=== PATIENT | female | born 1990 | race Two or more races ===

== ENCOUNTER 2024-07-23 21:55 | Emergency (ER) | payer MEDICAID, SELFPAY ==
[2024-07-23 21:56] VITALS: BMI 40.2
[2024-07-23 22:33] VITALS: BP 123/80; PULSE 120; RESP 17; TEMP 36.9; O2SAT 97
--- NOTE | 2024-07-23 22:54 | XR_ITS ---
Examination: CT abdomen with intravenous contrast CT pelvis with intravenous contrast 2-D coronal reconstructions 2-D sagittal reconstructions Date and time of exam:July 23, 2024 1144 hrs. Comparison July 12, 2024 Indications: Abdominal pain this week, cholecystectomy July 19, 2024. CTDI: vol (mGy) 12.91 DLP: (mGycm) 797 Technique: Multiple axial sections of the abdomen and pelvis have been obtained. 64 slice high-resolution scanner used. 3 mm axial sections have been obtained, post intravenous injection 60 cc [id number] 2-D sagittal, coronal reconstructions obtained. Low dose protocols were performed. One or more of the following dose reduction techniques were used; automated exposure control, adjustment of the mA and/or KV according to patient size, use of iterative reconstruction technique. Findings: Pneumoperitoneum No focal liver or splenic lesions Minimal postsurgical change in the gallbladder fossa No gallbladder fossa abscess No pancreatic or adrenal mass No renal or ureteral calculi, no hydronephrosis Postoperative changes in the anterior abdominal wall, mild 9 mm fat-containing umbilical hernia Normal appendix No bowel obstruction Anteverted uterus Urinary bladder intact The osseous structures are intact Impression: Pneumoperitoneum, presumably postoperative No gallbladder fossa abscess Negative for extrahepatic biliary tract dilatation although hepatobiliary sonography follow-up Normal appendix No bowel obstruction
--- NOTE | 2024-07-23 22:54 | EKG_ITS ---
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1990 Requested By: Aaron Das Order Number: [id number] Reading MD: Aaron Das Measurements Intervals [place] Rate: 122 P: 14 DC: 153 QRS: 268 QRSD: 77 T: 48 QT: 323 QTc: 462 Interpretive Statements SINUS TACHYCARDIA POSSIBLE RIGHT VENTRICULAR HYPERTROPHY [SOME/ALL OF: PROMINENT R IN V1, LATE TRANSITION, RAD, JESSE, SSS] POSSIBLE ANTERIOR MYOCARDIAL INFARCTION , OF INDETERMINATE AGE [30 ms Q WAVE IN V3/V4, OR R < 0.2 mV IN V4] Compared to ECG 07/18/2024 09:33:56 Myocardial infarct finding now present Sinus rhythm no longer present Indeterminate axis no longer present /store/S0/[id number]/ecg/[id number].pdf
--- NOTE | 2024-07-23 22:55 | PD.EDRME ---
Rapid Medical Screening Exam RME Arrival date/time: 07/23/24 21:55 33 year old female present to ED for c/of abd/chest pain s/p gall bladder surgery. I have greeted and performed a focused initial assessment of this patient. A comprehensive ED assessment and evaluation of the patient, analysis of all test results, and completion of the medical decision making process will be conducted by additional ED providers. Chief Complaint: Abdominal Pain Time Seen by Provider: 07/23/24 22:00 Vital signs: Vital Signs Temperature 98.5 F 07/23/24 22:33 Pulse Rate 120 H 07/23/24 22:33 Respiratory Rate 17 07/23/24 22:33 Blood Pressure 123/80 07/23/24 22:33 Pulse Oximetry (%) 97 07/23/24 22:33 Oxygen Delivery Method Room Air 07/23/24 22:33
[2024-07-23] MEDS: ONDANSETRON ODT 4 MG TABRAP PO (23:06)
[2024-07-23] MEDS: HYDROcodone/APAP 5/325 TABLET 1 TAB PO (23:06)
[2024-07-23 23:20] VITALS: BP 117/81; PULSE 100; RESP 19; TEMP 37.1; O2SAT 100
[2024-07-23] MEDS: SODIUM CHLORIDE 0.9% 1000 ML 1,000 ML 999 ML IV (23:25)
[2024-07-23 23:44] LABS: Base Excess, Venous 2 (-3-3); O2 Saturation, Venous 79 % (96-97); PCO2, Venous 40 mmHg (36-56); PO2, Venous 50 mmHg (15-58); pH, Venous 7.43 (7.33-7.66)
[2024-07-23 23:45] LABS: Basophils # (Auto) 0.1 Thou/mm3 (0.0-0.2); Basophils % (Auto) 1 % (0-2.5); Eosinophils # (Auto) 0.2 Thou/mm3 (0.0-0.5); Eosinophils % (Auto) 1 % (0-10); Hematocrit 31.8 % (36.0-46.0); Hemoglobin 11.7 g/dL (12.0-16.0); Immature Granulocytes % (Auto) 0 % (0-0); Immature Granulocytes Auto 0.03 Thou/mm3 (0.00-0.00); Lymphocytes # (Auto) 2.9 Thou/mm3 (1.0-4.8); Lymphocytes % (Auto) 24 % (10-50); Mean Corpuscular HGB Conc 36.8 g/dl (31.0-37.0); Mean Corpuscular Hemoglobin 31.9 pg (25.0-35.0); Mean Corpuscular Volume 87 fL (80-100); Monocytes # (Auto) 0.9 Thou/mm3 (0.0-0.8); Monocytes % (Auto) 7 % (0-12); Neutrophils % (Auto) 67 % (37-80); Nucleated Red Blood Cell % 0 /100 WBC (0); Platelet Count 298 Thou/mm3 (140-440); RDW Standard Deviation 38.2 fL (36.4-46.3); Red Blood Count 3.67 Miln/mm3 (4.00-5.20); White Blood Count 12.1 Thou/mm3 (3.6-11.0)
[2024-07-23 23:53] LABS: Beta Hydroxybutyrate 1.8 mmol/L (<0.6)
[2024-07-24 00:05] LABS: HCG,Qualitative Serum Negative
[2024-07-24 00:09] LABS: Alanine Aminotransferase 14 U/L (10-49); Albumin, Serum 4.3 gm/dL (3.5-5.0); Albumin/Globulin Ratio 1.4 (1.2-2.2); Alkaline Phosphatase 76 U/L (46-116); Anion Gap 9 (7-16); Aspartate Amino Transferase 14 U/L (0-34); BUN/Creatinine Ratio 11 Ratio (12-20); Bilirubin,Total 1.1 mg/dL (0.3-1.2); Blood Urea Nitrogen 16 mg/dL (9-23); Calcium 9.8 mg/dL (8.3-10.6); Calcium (Corrected) 9.8 mg/dL (8.5-10.1); Carbon Dioxide 26.2 mMol/L (20.0-31.0); Chloride 92 mMol/L (98-107); Creatinine (Component) 1.4 mg/dL (0.6-1.3); Estimated Creatinine Clearance 64.3 mL/min (>60); Glucose 145 mg/dL (74-106); Lipase 43 U/L (12-53); Osmolality,Calculated 259 (275-295); Potassium 3.3 mMol/L (3.4-5.1); Sodium 127 mMol/L (136-145); Total Protein 7.3 gm/dL (5.7-8.2); Troponin I < 0.002 ng/mL (0.0-0.045); eGFR 52 See Note
[2024-07-24] MEDS: HYDROcodone/APAP 5/325 TABLET 1 TAB PO (00:21)
--- NOTE | 2024-07-24 00:21 | PD.EDABDPN ---
ED Abdominal Pain RME/HPI General Chief Complaint: Abdominal Pain Stated complaint: ABD PAIN, CHOLECYSTECTOMY 07/19 Time seen by provider: 07/23/24 22:00 Arrival date/time: 07/23/24 21:55 Source: patient Mode of arrival: ambulatory Limitations: no limitations RME / HPI RME / HPI narrative: 07/23/24 21:55 33 year old female present to ED for c/of abd/chest pain s/p gall bladder surgery. I have greeted and performed a focused initial assessment of this patient. A comprehensive ED assessment and evaluation of the patient, analysis of all test results, and completion of the medical decision making process will be conducted by additional ED providers. Dr. Quispe?s Main ED Evaluation: 33-year-old female who had a laparoscopic cystectomy done approximately five days ago with persistent abdominal pain since discharge. She had some pain medications while she was in the hospital, but once she left the hospital, she has been taking Advil for the pain without improvement therefore, she comes to the emergency apartment. Pain is not worsened, but she comes because the pain is not better. Her next appointment with Dr. Woo is not until next Wednesday. Related Data Home Medications ?Medication ?Instructions ?Recorded ?Confirmed amlodipine 10 mg tablet 10 mg PO QDAY 07/13/24 07/13/24 atorvastatin 80 mg tablet 80 mg PO QDAY 07/13/24 07/13/24 cetirizine 10 mg tablet 10 mg PO QDAY 07/13/24 07/13/24 lisinopril 20 1 tab PO QDAY 07/13/24 07/13/24 mg-hydrochlorothiazide 25 mg tablet triamcinolone acetonide 0.1 % 1 applic topical BID 07/13/24 07/13/24 topical cream Previous Rx's ?Medication ?Instructions ?Recorded blood-glucose meter #1 ea 02/03/23 lancet with blood glucose test #300 ea 02/03/23 strips and pen needles combo pack metformin 1,000 mg tablet,extended 1,000 mg PO BID #60 tabs 02/03/23 release 24hr (osmotic) pen needle, diabetic 31 gauge x #100 ea 02/03/2301/26 (Comfort EZ Pen Borger) capsaicin 0.025 % topical cream 1 applic top TID 30 days #50 grams 07/20/24 dicyclomine 10 mg capsule 10 mg PO TID 30 days #90 caps 07/20/24 insulin glargine 100 unit/mL 15 unit (0.15 mL) SCi QDAY 30 days 07/20/24 subcutaneous solution (Lantus #4.5 mL U-100 Insulin) insulin syringe-needle U-100 0.5 #100 ea 07/20/24 mL 30 gauge x 1/2 (BD Insulin Syringe Ultra-Fine) pantoprazole 40 mg tablet,delayed 40 mg PO BID 30 days #60 tabs 07/20/24 release hydrocodone 5 mg-acetaminophen 325 1 tab PO Q8H PRN pain #7 tabs 07/24/24 mg tablet Allergies Allergy/AdvReac Type Severity Reaction Status Date / Time No Known Allergies Allergy Verified 07/23/24 21:58 Review of Systems Review of Systems Systems Reviewed: All systems reviewed, normal except as documented Past Medical History Past Medical History NEUROLOGIC: Negative Neurological Disorders, Cerebrovascular Accident, Transient Ischemic Attacks (TIA), Dementia, Alzheimer's Disease, Parkinson's Disease, Brain Tumor, Meningitis, Seizures, Epilepsy, Multiple Sclerosis, Cerebral Palsy, Amyotrophic Lateral Sclerosis (ALS/Kylie Gehrig's), Guillain-[place] Syndrome, Spina Bifida, Paralysis, Peripheral Neuropathy, Roper's Palsy, Subdural Hematoma, Migraine, Head Trauma, Spinal Cord Injury or Traumatic Brain Injury CARDIAC: Positive Hypertension; Negative Cardiac Disorders, Myocardial Infarction, Cardiac Arrhythmia, Atrial Fibrillation, Angina, Heart Murmur, Coronary Artery Disease, Atherosclerotic Heart Disease, Peripheral Vascular Disease, Hypercholesterolemia, Aneurysm, Congestive Heart Failure, Congenital Heart Disease, Valvular Heart Disease, Rheumatic Fever, Cardiomyopathy, Edema, Pericarditis, Cellulitis, Deep Vein Thrombosis, Hypotension or Varicose Veins RESPIRATORY: Negative Chronic Obstructive Pulmonary Disease (COPD), Asthma, Bronchitis, Emphysema, Pneumonia, Pulmonary Fibrosis, Cystic Fibrosis, Tuberculosis, Pulmonary Embolism, Pulmonary Edema or Sleep Apnea GASTROINTESTINAL: Negative Gastrointestinal Disorders, Hepatitis, Cirrhosis, Pancreatitis, Celiac Disease, Gall Bladder Disease, Gastrointestinal Bleed, Esophageal Varices, Saenz's Esophagus, Colitis, Ulcerative Colitis, Diverticulitis, Diverticulosis, Ulcer, Colorectal Cancer, Irritable Bowel, Crohn's Disease, Obstructive Bowel, Hiatal Hernia, Hemorrhoids, Gastroesophageal Reflux Disease or Obesity GENITOURINARY: Negative Genitourinary Disorders, Renal Disease, Kidney Stones, Polycystic Kidney Disease, Neurogenic Bladder, Inguinal Hernia, Dialysis, Prostate Cancer or Benign Prostatic Hyperplasia REPRODUCTIVE: Negative Breast Cancer, Endometriosis, Genital Herpes, Gonorrhea, Pelvic Inflammatory Disease, Previous Pregnancies, Syphilis, Testicular Cancer or Uterine Prolapse MUSCULOSKELETAL: Negative Musculoskeletal Disorders, Muscular Dystrophy, Myasthenia Gravis, Marfan's Syndrome, Bone Cancer, Arthritis, Rheumatoid Arthritis, Osteoporosis, Degenerative Disk Disease, Gout, Scoliosis, Carpal Tunnel Syndrome, Fibromyalgia, Fractures, Degenerative Joint Disease, Osteomyelitis or Poliovirus ENT: Negative Cataracts, Glaucoma, Blind, Retinal Detachment, Macular Degeneration, Ear Infection, Deafness, Head Trauma or Eye Prosthesis ENDOCRINE: Positive Endocrine Disorders and Diabetes Mellitus Type 2; Negative Diabetes Mellitus Type 1, Rod's Syndrome, Kearny's Disease, Hyperthyroidism, Hypothyroidism, Parathyroid Disease, Pituitary Disease, Systemic Lupus Erythematosus, Syndrome of Inappropriate Antidiuretic Hormone (SIADH), Adrenal Disease or Graves' Disease HEMATOLOGIC: Negative Blood Disorders, Anemia, Leukemia, Hemophilia, Thalassemia, Sickle Cell Disease or Clotting Problems PSYCHO/SOCIAL: Positive Recreational Drug Use (MARIJUANA) and Anxiety; Negative Psychiatric Problems, Schizophrenia, Bipolar Disorder, Depression, Behavior Problems, Self-Mutilation, Attention Deficit Disorder, Attention Deficit Hyperactivity Disorder, Depression, Post Traumatic Stress Disorder or Eating Disorder OTHER HISTORY: Positive Hospitalization; Negative Autoimmune Disease, Down Syndrome, Autism, Developmental Delay, Shingles, Falls, Blood Transfusions, Blood Transfusion Reaction, Anesthesia Reactions, Organ Transplant, Chemotherapy, Radiation Therapy, Hyperbaric Therapy, MRSA, VRSA, Vancomycin-Resistant Enterococci, Human Immunodeficiency Virus (HIV), Chicken Pox, Measles, Mumps, Rubella ([place] Measles), Pertussis, Clostridium Difficile, Cancer, Breast Cancer, Cervical Cancer, Colorectal Cancer, Lung Cancer, Ovarian Cancer, Prostate Cancer or Testicular Cancer Family History FAMILY HISTORY: Negative Family Psychiatric Problems, Family Respiratory Disorders, Family Cardiac Disorders, Family Gastrointestinal Problems, Family Cancer, Family Surgery or Family Anesthesia Reaction Surgical History SURGICAL: Negative Cardiac Surgery, Open Heart Surgery, Coronary Artery Bypass Graft, Valve Replacement, Vascular Surgery, Coronary Stent, Cardiac Catheterization, Pacemaker, Angiogram, Auto Implanted Cardiovert Defib, Carotid Endarterectomy, Endocrine Surgery, Thyroidectomy, Ear Surgery, Tympanostomy Tube, Eye Surgery, Nose Surgery, Oral Surgery, Tonsillectomy, Adenoidectomy, Cochlear Implant, Corneal Transplant, Throat Surgery, Abdominal Surgery, Tracheostomy, Gastric Bypass Surgery, Gastrostomy, Bowel Surgery, Nephrectomy, Transurethral Resection, Joint Replacement, Amputation, Open Reduction Internal Fixation, Arthroscopy, Neurologic Surgery, Brain Shunt, Mastectomy, Lumpectomy, Hysterectomy, Tubal Ligation, Section, Vasectomy or Organ Transplant Social History SMOKING STATUS: Never smoker SECOND HAND EXPOSURE: No SUBSTANCE USE: does not use ED Exam Narrative Physical exam: GENERAL APPEARANCE: AxOx4, generally well-appearing, no acute distress. HEENT: NC, AT. MMM. EOMI, clear conjunctiva, oropharynx clear. NECK: Supple without lymphadenopathy. No stiffness or restricted ROM. HEART: Normal rate and regular rhythm, normal S1/S1, no m/r/g LUNGS: CTAB, moving air well. No crackles or wheezes are heard. ABDOMEN: Soft, diffusely tender, no rebound, nondistended with good bowel sounds heard. BACK: No midline C/T/L spine pain or deformity, No CVAT, no obvious deformity. EXTREMITIES: Without cyanosis, clubbing or edema. MUSCULOSKELETAL: FROM of all major joints, no chest tenderness NEUROLOGICAL: Grossly nonfocal. Alert and oriented, moving all 4 extremities. CN not formally tested but appear grossly intact. Observed to ambulate with normal gait. Skin: Warm and dry without any rash. General Limitations: Present no limitations Course Course Course Narrative: [address] resent via the RME process. Patient notes improvement with [place] given here and we will discharge her with a few tablets so she can follow up with Dr. Woo. Quality Measures none Orders Category Date Time Status Bedside Blood Glucose NOW Care 07/23/24 23:[address] Screening NOW Care 07/23/24 22:54 Active EKG (ED ONLY) *Do not use* NOW Care 07/23/24 22:[address] abdomen pelvis w con Stat Exams 07/23/24 22:54 Completed EKG (ED Only) Stat Exams 07/23/24 22:54 Draft Beta Hydroxybutyrate Stat Lab 07/23/24 23:33 Completed CBC Stat Lab 07/23/24 23:33 Completed CMP [Comprehensive Metabolic Panel] Stat Lab 07/23/24 23:33 Completed HCG,Qualitative Serum Stat Lab 07/23/24 23:33 Completed Lipase Stat Lab 07/23/24 23:33 Completed Troponin I Stat Lab 07/23/24 23:33 Completed UA [Urinalysis] Stat Lab 07/23/24 22:55 Ordered Urine Culture Stat Lab 07/23/24 22:55 Ordered VBG [Venous Blood Gas] Stat Lab 07/23/24 23:33 Completed HYDROcodone*/APAP 5/325 [[place] 5/325] Med 07/23/24 22:55 Discontinued 1 tab PO X1 ONE HYDROcodone*/APAP 5/325 [[place] 5/325] Med 07/24/24 00:12 Discontinued 1 tab PO X1 ONE Ondansetron Odt [Zofran Odt] Med 07/23/24 22:55 Discontinued 4 mg PO X1 ONE Sodium Chloride 0.9% 1000 ml [Ns] 1,000 ml Med 07/23/24 22:56 Discontinued IV 999 mls/hr Vital Signs Vital signs: Vital Signs Temperature 98.5 F 07/23/24 22:33 Pulse Rate 120 H 07/23/24 22:33 Respiratory Rate 17 07/23/24 22:33 Blood Pressure 123/80 07/23/24 22:33 Pulse Oximetry (%) 97 07/23/24 22:33 Oxygen Delivery Method Room Air 07/23/24 22:33 Abdominal Pain MDM MDM Narrative MDM Narrative:: Scribe Attestation: I, Derrick Rodriguez, am scribing for and in the presence of Dr. Quispe. Provider Notation: Although this document has been carefully reviewed, there may still be some phonetic and other typographical errors. These errors are purely grammatical due to imperfections in the software program and should not be construed in any way to compromise the substance of the patient's medical care during this visit. Patient data External records reviewed:: [facility] previous records Clinical information provided by:: patient Social determinants that could affect healthcare access:: none Patient has the following chronic illnesses:: HTN, DM2 How is presenting disease/condition affected by chronic disease/condition?: uneffected by Evaluation data The following diagnostics were reviewed and interpreted by me:: radiology exam(s) Lab and/or radiology exams considered but not ordered:: None Interpretation Summary: I personally reviewed the radiology data and agree with the radiologist's interpretation. Examination: CT abdomen with intravenous contrast CT pelvis with intravenous contrast 2-D coronal reconstructions 2-D sagittal reconstructions Date and time of exam:July 23, 2024 1144 hrs. Comparison July 12, 2024 Indications: Abdominal pain this week, cholecystectomy July 19, 2024. Findings: Pneumoperitoneum No focal liver or splenic lesions Minimal postsurgical change in the gallbladder fossa No gallbladder fossa abscess No pancreatic or adrenal mass No renal or ureteral calculi, no hydronephrosis Postoperative changes in the anterior abdominal wall, mild 9 mm fat-containing umbilical hernia Normal appendix No bowel obstruction Anteverted uterus Urinary bladder intact The osseous structures are intact Impression: Pneumoperitoneum, presumably postoperative No gallbladder fossa abscess Negative for extrahepatic biliary tract dilatation although hepatobiliary sonography follow-up Normal appendix No bowel obstruction Dictated By: Koby Shaw MD Medications / Prescriptions Medications or Prescriptions considered but not ordered:: None Medication administrations:: Medication Administration History Discontinued Medications Hydrocodone Bitart/Acetaminophen (Hydrocodone/Apap 5/325 Tablet) 1 tab PO X1 ONE Stop: 07/23/24 22:56 Last Admin: 07/23/24 23:06 Dose: 1 tab Documented By: FRANCHESCA Hydrocodone Bitart/Acetaminophen (Hydrocodone/Apap 5/325 Tablet) 1 tab PO X1 ONE Stop: 07/24/24 00:13 Sodium Chloride (Ns) 1,000 mls @ 999 mls/hr IV .Q1H1M ONE Stop: 07/23/24 23:56 Last Infusion: 07/24/24 00:19 Dose: Infused Documented By: Admin: 07/23/24 23:25 Dose: 999 mls/hr Documented By: KOKI Ondansetron HCl (Ondansetron Odt 4 Mg Tabrap) 4 mg PO X1 ONE; Protocol Stop: 07/23/24 22:56 Last Admin: 07/23/24 23:06 Dose: 4 mg Documented By: FRANCHESCA As above Consultations Consultation(s) initiated? (list below): No Diagnosis Differential diagnosis abdominal pain: abdominal pain, constipation, diverticulitis, gastroenteritis and small bowel obstruction Most likely diagnosis given after review of the tests above:: Postoperative pain Admission Indicated Admission indicated?: not indicated Admission Request Was there a request for admission?: No Disposition Plan Disposition Plan: Discharge Discharge Attestation Discharge Attestation: The patient and all family members were given an opportunity to ask questions and understood the discharge instructions. Discharge instructions specifically effects, indications for sooner follow up or return to the emergency department, and the expected course of current diagnosis. Patient condition: Stable Discharge Plan Plan Patient Disposition: HOME (Self Care) Prescriptions/Referrals Prescriptions/Med Rec: New hydrocodone-acetaminophen 5-325 mg tablet 1 tab PO Q8H MDD 3 tabs/day PRN (Reason: pain) Qty: 7 0RF No Action metformin 1,000 mg tablet extended release 24 hr 1,000 mg PO BID Qty: 60 0RF (DME) blood-glucose meter Kit See Rx Instructions .Route Qty: 1 0RF Rx Instructions: As directed (DME) pen needle, diabetic [Comfort EZ Pen Borger] 31 gauge x 5/16 needle See Rx Instructions .Route Qty: 100 0RF Rx Instructions: As directed (DME) lancet-gluc test strip-needles Combo Pack See Rx Instructions .Route Qty: 300 0RF Rx Instructions: As directed atorvastatin 80 mg tablet 80 mg PO QDAY Patient Comments: TAKE 1 TABLET BY MOUTH EVERY DAY cetirizine 10 mg tablet 10 mg PO QDAY Patient Comments: TAKE 1 TABLET BY MOUTH EVERY DAY FOR 90 DAYS triamcinolone acetonide 0.1 % cream 1 applic TOPICAL BID Patient Comments: 1 APPLICATION EXTERNALLY TWICE A DAY 30 DAYS amlodipine 10 mg tablet 10 mg PO QDAY Patient Comments: TAKE 1 TABLET BY MOUTH EVERY DAY lisinopril-hydrochlorothiazide 20-25 mg tablet 1 tab PO QDAY Patient Comments: TAKE 1 TABLET BY MOUTH EVERY DAY FOR 90 DAYS insulin glargine [Lantus U-100 Insulin] 100 unit/mL Solution 15 unit SCi QDAY 30 Days Qty: 4.5 0RF pantoprazole 40 mg Tablet,Delayed Release (Dr/Ec) 40 mg PO BID 30 Days Qty: 60 0RF capsaicin 0.025 % Cream 1 applic top TID 30 Days Qty: 50 0RF dicyclomine 10 mg Capsule 10 mg PO TID 30 Days Qty: 90 0RF (DME) insulin syringe-needle U-100 [BD Insulin Syringe Ultra-Fine] 0.5 mL 30 gauge x 1/2 syringe See Rx Instructions .Route Qty: 100 2RF Rx Instructions: once a day Referrals: No Primary/Family,Physician [Primary Care Provider] - In 1 week Problem List Clinical Impression: Postoperative pain Patient/Caregiver Discharge Instructions Education Materials: Medicine for Pain Additional Instructions: Follow-up with your surgeon, Dr. Jefferson this week for recheck. You can return to the emergency department sooner symptoms worsen or if you notice any new, concerning issues. Print Language: Italian Stand Alone Forms: Jonna Award Info., Patient Portal Info Letter
[2024-07-24 00:27] VITALS: PULSE 97; RESP 18; O2SAT 99
== END 2024-07-24 00:28 | disposition home or self-care (01) ==
PROVIDERS: Physician Assistant; Emergency Provider Emergency Medicine
DX: G89.18 Other acute postprocedural pain (principal); R00.0 Tachycardia, unspecified; I10 Essential (primary) hypertension
CPT/HCPCS: 36415; 74177; 80053; 81001; 82010; 82803; 83690; 84484; 84703; 85025; 87086; 87400; 87811; 93005; 96360; 99285; A4649; J7030; Q0162; Q9967; A9270

== ENCOUNTER 2024-07-31 13:15 | Outpatient (AMB) | payer MEDICAID, SELFPAY ==
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
[2024-07-31 13:25] VITALS: BP 104/71; PULSE 99; RESP 18; TEMP 36.4; O2SAT 99; BMI 42.8
== END 2024-07-31 14:02 | disposition home or self-care (01) ==
LOC: HODSRG 13:15
PROVIDERS: PCP Physician Assistant; Referring Provider Physician Assistant; Supervising Provider Surgery; Visit Provider Surgery
DX: Z48.815 Encounter for surgical aftercare following surgery on the digestive system (principal)
CPT/HCPCS: 99213; G0463

== ENCOUNTER 2024-08-14 19:24 | Emergency (ER) | payer MEDICAID, SELFPAY ==
[2024-08-14 19:25] VITALS: BMI 42.0
--- NOTE | 2024-08-14 20:21 | PC.NURSE ---
Addendum entered by Marlene Pierre 08/14/24 20:50: called for pt, no answerx3 @ 2049 Addendum entered by Marlene Pierre 08/14/24 20:43: called for pt from lobby/outside, no answerx2 @ 2041 Original Note: called for pt from lobby/outside, no answerx1@ 2020
== END 2024-08-14 20:52 | disposition left against medical advice (07) ==
LOC: SERX 20:56
PROVIDERS: Emergency Provider Emergency Medicine
DX: Z53.21 Procedure and treatment not carried out due to patient leaving prior to being seen by health care provider (principal)

== ENCOUNTER 2024-08-14 23:00 | Inpatient (IN) | payer MEDICAID, SELFPAY ==
[2024-08-14 23:12] VITALS: BP 164/104; PULSE 148; RESP 20; TEMP 36.4; O2SAT 98; BMI 38.0
--- NOTE | 2024-08-14 23:22 | EKG_ITS ---
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
--- NOTE | 2024-08-14 23:23 | PD.EDRME ---
Rapid Medical Screening Exam RME Arrival date/time: 08/14/24 23:00 33-year-old female past medical history of cholecystectomy and diabetes presents emergency department complaining of abdominal pain with nausea vomiting and diarrhea for 1 month. Chief Complaint: Nausea/Vomiting/Diarrhea Time Seen by Provider: 08/14/24 23:18 Vital signs: Vital Signs Temperature 97.6 F 08/14/24 23:12 Pulse Rate 148 H 08/14/24 23:12 Respiratory Rate 20 08/14/24 23:12 Blood Pressure 164/104 H 08/14/24 23:12 Pulse Oximetry (%) 98 08/14/24 23:12 Oxygen Delivery Method Room Air 08/14/24 23:12 Vital signs reviewed by provider: Yes
[2024-08-14] MEDS: ONDANSETRON ODT 4 MG TABRAP PO (23:38)
[2024-08-15] VITALS (20 sets, daily range): BP systolic 101–171; BP diastolic 72–129; PULSE 86–146; RESP 14–26; TEMP 36.4–36.9; O2SAT 97–100; BMI 38.2
[2024-08-15 00:03] LABS: Basophils # (Auto) 0.1 Thou/mm3 (0.0-0.2); Basophils % (Auto) 0 % (0-2.5); Eosinophils % (Auto) 0 % (0-10); Hematocrit 39.3 % (36.0-46.0); Immature Granulocytes % (Auto) 0 % (0-0); Immature Granulocytes Auto 0.07 Thou/mm3 (0.00-0.00); Lymphocytes # (Auto) 1.3 Thou/mm3 (1.0-4.8); Lymphocytes % (Auto) 8 % (10-50); Mean Corpuscular HGB Conc 35.6 g/dl (31.0-37.0); Mean Corpuscular Hemoglobin 30.9 pg (25.0-35.0); Mean Corpuscular Volume 87 fL (80-100); Monocytes # (Auto) 0.5 Thou/mm3 (0.0-0.8); Monocytes % (Auto) 3 % (0-12); Neutrophils % (Auto) 88 % (37-80); Nucleated Red Blood Cell % 0 /100 WBC (0); Platelet Count 380 Thou/mm3 (140-440); RDW Standard Deviation 39.3 fL (36.4-46.3); Red Blood Count 4.53 Miln/mm3 (4.00-5.20)
[2024-08-15 00:25] LABS: HCG,Qualitative Serum Negative
[2024-08-15 00:41] LABS: Alanine Aminotransferase 12 U/L (10-49); Albumin, Serum 5.4 gm/dL (3.5-5.0); Albumin/Globulin Ratio 1.6 (1.2-2.2); Alkaline Phosphatase 130 U/L (46-116); Anion Gap 25 (7-16); Aspartate Amino Transferase 14 U/L (0-34); BUN/Creatinine Ratio 17 Ratio (12-20); Bilirubin,Total 1.4 mg/dL (0.3-1.2); Blood Urea Nitrogen 25 mg/dL (9-23); Calcium 10.4 mg/dL (8.3-10.6); Calcium (Corrected) 10.4 mg/dL (8.5-10.1); Carbon Dioxide 16.4 mMol/L (20.0-31.0); Chloride 89 mMol/L (98-107); Creatinine (Component) 1.5 mg/dL (0.6-1.3); Estimated Creatinine Clearance 58.2 mL/min (>60); Globulin 3.3 gm/dL (2.3-3.5); Lipase 65 U/L (12-53); Osmolality,Calculated 287 (275-295); Potassium 3.4 mMol/L (3.4-5.1); Sodium 130 mMol/L (136-145); Total Protein 8.7 gm/dL (5.7-8.2); eGFR 47 See Note
[2024-08-15 00:42] LABS: Glucose 495 mg/dL (74-106)
[2024-08-15 00:48] LABS: Base Excess, Venous -4 (-3-3); O2 Saturation, Venous 95 % (96-97); PCO2, Venous 27 mmHg (36-56); PO2, Venous 72 mmHg (15-58); pH, Venous 7.45 (7.33-7.66)
[2024-08-15] MEDS: SODIUM CHLORIDE 0.9% 1000 ML 1,000 ML 999 ML IV ×2 (00:53)
[2024-08-15] MEDS: INSULIN REG 100 UNITS/100 ML 100 UNIT/100 ML BAG 9.435 UNIT IV (00:53)
[2024-08-15] MEDS: ONDANSETRON INJ 2 MG/ML INJ 2 ML 4 MG IV ×2 (01:01→05:25)
--- NOTE | 2024-08-15 01:03 | PD.EDNV ---
Nausea/Vomit./Diarrhea-RME/HPI General Chief complaint: Nausea/Vomiting/Diarrhea Stated complaint: VOMITING Time Seen by Provider: 08/14/24 23:18 Source: patient Arrival date/time: 08/14/24 23:00 Mode of arrival: ambulatory Limitations: no limitations RME / HPI RME / HPI Narrative: 08/14/24 23:00 33-year-old female past medical history of cholecystectomy and diabetes presents emergency department complaining of abdominal pain with nausea vomiting and diarrhea for [address] GREGORY MAIN ED EVALUATION: 33yof with h/o diabetes mellitus type 2 insulin-dependent, medication noncompliance, hypertension, anxiety, cholecystectomy who presents to ED for c/o nausea, vomiting and diarrhea, on and off, for the past 1 month worsening today. Patient reports diffuse abdominal pain, severity 6 out of 10. Patient states she was unable to tolerate PO intake and came here to be further evaluation. Patient reports she is compliant with her diabetic regimen. Denies any other symptoms at this time. Related Data Home Medications ?Medication ?Instructions ?Recorded ?Confirmed amlodipine 10 mg tablet 10 mg PO QDAY 07/13/24 08/15/24 atorvastatin 80 mg tablet 80 mg PO QDAY 07/13/24 08/15/24 cetirizine 10 mg tablet 10 mg PO QDAY 07/13/24 07/31/24 lisinopril 20 1 tab PO QDAY 07/13/24 07/31/24 mg-hydrochlorothiazide 25 mg tablet triamcinolone acetonide 0.1 % 1 applic topical BID 07/13/24 08/15/24 topical cream insulin glargine 100 unit/mL 15 unit SCi BID 08/15/24 08/15/24 subcutaneous solution (Lantus U-100 Insulin) Previous Rx's ?Medication ?Instructions ?Recorded blood-glucose meter #1 ea 02/03/23 lancet with blood glucose test #300 ea 02/03/23 strips and pen needles combo pack metformin 1,000 mg tablet,extended 1,000 mg PO BID #60 tabs 02/03/23 release 24hr (osmotic) pen needle, diabetic 31 gauge x #100 ea 02/03/23 5/16 (Comfort EZ Pen [place]) insulin syringe-needle U-100 0.5 #100 ea 07/20/24 mL 30 gauge x 1/2 (BD Insulin Syringe Ultra-Fine) buspirone 10 mg tablet 10 mg PO BID 60 days #120 tabs 08/17/24 metoclopramide HCl 10 mg tablet 10 mg PO Q6H PRN nausea and 08/17/24 (Reglan) vomiting #14 tabs pantoprazole 40 mg tablet,delayed 40 mg PO QDAY #14 tabs 08/17/24 release (Protonix) acetaminophen 300 mg-codeine 30 mg 2 tab PO TID PRN pain #20 tabs 08/23/24 tablet metoclopramide HCl 10 mg tablet 10 mg PO Q6H PRN nausea and 08/23/24 (Reglan) vomiting #30 tabs ondansetron 4 mg disintegrating 4 mg PO TID PRN nausea and 08/23/24 tablet vomiting 30 days #30 tabs Allergies Allergy/AdvReac Type Severity Reaction Status Date / Time No Known Allergies Allergy Verified 08/23/24 04:59 Review of Systems Review of Systems Systems Reviewed: All systems reviewed, normal except as documented Past Medical History Past Medical History NEUROLOGIC: Negative Neurological Disorders, Cerebrovascular Accident, Transient Ischemic Attacks (TIA), Dementia, Alzheimer's Disease, Parkinson's Disease, Brain Tumor, Meningitis, Seizures, Epilepsy, Multiple Sclerosis, Cerebral Palsy, Amyotrophic Lateral Sclerosis (ALS/Kylie Gehrig's), Guillain-P[place]ops Syndrome, Spina Bifida, Paralysis, Peripheral Neuropathy, Roper's Palsy, Subdural Hematoma, Migraine, Head Trauma, Spinal Cord Injury or Traumatic Brain Injury CARDIAC: Positive Hypertension; Negative Cardiac Disorders, Myocardial Infarction, Cardiac Arrhythmia, Atrial Fibrillation, Angina, Heart Murmur, Coronary Artery Disease, Atherosclerotic Heart Disease, Peripheral Vascular Disease, Hypercholesterolemia, Aneurysm, Congestive Heart Failure, Congenital Heart Disease, Valvular Heart Disease, Rheumatic Fever, Cardiomyopathy, Edema, Pericarditis, Cellulitis, Deep Vein Thrombosis, Hypotension or Varicose Veins RESPIRATORY: Negative Chronic Obstructive Pulmonary Disease (COPD), Asthma, Bronchitis, Emphysema, Pneumonia, Pulmonary Fibrosis, Cystic Fibrosis, Tuberculosis, Pulmonary Embolism, Pulmonary Edema or Sleep Apnea GASTROINTESTINAL: Negative Gastrointestinal Disorders, Hepatitis, Cirrhosis, Pancreatitis, Celiac Disease, Gall Bladder Disease, Gastrointestinal Bleed, Esophageal Varices, Saenz's Esophagus, Colitis, Ulcerative Colitis, Diverticulitis, Diverticulosis, Ulcer, Colorectal Cancer, Irritable Bowel, Crohn's Disease, Obstructive Bowel, Hiatal Hernia, Hemorrhoids, Gastroesophageal Reflux Disease or Obesity GENITOURINARY: Negative Genitourinary Disorders, Renal Disease, Kidney Stones, Polycystic Kidney Disease, Neurogenic Bladder, Inguinal Hernia, Dialysis, Prostate Cancer or Benign Prostatic Hyperplasia REPRODUCTIVE: Negative Breast Cancer, Endometriosis, Genital Herpes, Gonorrhea, Pelvic Inflammatory Disease, Previous Pregnancies, Syphilis, Testicular Cancer or Uterine Prolapse MUSCULOSKELETAL: Negative Musculoskeletal Disorders, Muscular Dystrophy, Myasthenia Gravis, Marfan's Syndrome, Bone Cancer, Arthritis, Rheumatoid Arthritis, Osteoporosis, Degenerative Disk Disease, Gout, Scoliosis, Carpal Tunnel Syndrome, Fibromyalgia, Fractures, Degenerative Joint Disease, Osteomyelitis or Poliovirus ENT: Negative Cataracts, Glaucoma, Blind, Retinal Detachment, Macular Degeneration, Ear Infection, Deafness, Head Trauma or Eye Prosthesis ENDOCRINE: Positive Endocrine Disorders and Diabetes Mellitus Type 2; Negative Diabetes Mellitus Type 1, Princeton's Syndrome, Racine's Disease, Hyperthyroidism, Hypothyroidism, Parathyroid Disease, Pituitary Disease, Systemic Lupus Erythematosus, Syndrome of Inappropriate Antidiuretic Hormone (SIADH), Adrenal Disease or Graves' Disease HEMATOLOGIC: Negative Blood Disorders, Anemia, Leukemia, Hemophilia, Thalassemia, Sickle Cell Disease or Clotting Problems PSYCHO/SOCIAL: Positive Recreational Drug Use (MARIJUANA) and Anxiety; Negative Psychiatric Problems, Schizophrenia, Bipolar Disorder, Depression, Behavior Problems, Self-Mutilation, Attention Deficit Disorder, Attention Deficit Hyperactivity Disorder, Depression, Post Traumatic Stress Disorder or Eating Disorder OTHER HISTORY: Positive Hospitalization; Negative Autoimmune Disease, Down Syndrome, Autism, Developmental Delay, Shingles, Falls, Blood Transfusions, Blood Transfusion Reaction, Anesthesia Reactions, Organ Transplant, Chemotherapy, Radiation Therapy, Hyperbaric Therapy, MRSA, VRSA, Vancomycin-Resistant Enterococci, Human Immunodeficiency Virus (HIV), Chicken Pox, Measles, Mumps, Rubella (Peruvian Measles), Pertussis, Clostridium Difficile, Cancer, Breast Cancer, Cervical Cancer, Colorectal Cancer, Lung Cancer, Ovarian Cancer, Prostate Cancer or Testicular Cancer Family History FAMILY HISTORY: Negative Family Psychiatric Problems, Family Respiratory Disorders, Family Cardiac Disorders, Family Gastrointestinal Problems, Family Cancer, Family Surgery or Family Anesthesia Reaction Surgical History SURGICAL: Negative Cardiac Surgery, Open Heart Surgery, Coronary Artery Bypass Graft, Valve Replacement, Vascular Surgery, Coronary Stent, Cardiac Catheterization, Pacemaker, Angiogram, Auto Implanted Cardiovert Defib, Carotid Endarterectomy, Endocrine Surgery, Thyroidectomy, Ear Surgery, Tympanostomy Tube, Eye Surgery, Nose Surgery, Oral Surgery, Tonsillectomy, Adenoidectomy, Cochlear Implant, Corneal Transplant, Throat Surgery, Abdominal Surgery, Tracheostomy, Gastric Bypass Surgery, Gastrostomy, Bowel Surgery, Nephrectomy, Transurethral Resection, Joint Replacement, Amputation, Open Reduction Internal Fixation, Arthroscopy, Neurologic Surgery, Brain Shunt, Mastectomy, Lumpectomy, Hysterectomy, Tubal Ligation, Section, Vasectomy or Organ Transplant Social History SMOKING STATUS: Current some day smoker SECOND HAND EXPOSURE: No SUBSTANCE USE: does not use ED Exam Narrative Physical exam: GENERAL APPEARANCE: alert and oriented x 4, well-developed, well-nourished, no acute distress VITALS: All vitals were reviewed and the pulse ox is 98% on room air, which is normal according to my interpretation. HEENT: Normocephalic, atraumatic; pupils equal, round, reactive to light; EOMI; mucous membranes pink, moist; oropharynx clear NECK: Supple LUNGS: CTABL; no wheezes, no rales, no rhonchi HEART: Regular rate, regular rhythm; normal S1, S2; no murmurs ABDOMEN: non distended; normal BS; soft, no tenderness, no guarding, no rebound; no masses, no organomegaly, no hernia BACK: no CVA tenderness EXTREMITIES: atraumatic; no edema NEUROLOGIC: awake; alert and oriented x4; cranial nerves II-XII grossly intact; no focal sensory or motor deficits PSYCHIATRIC: appropriate mood and affect SKIN: warm, dry, normal color; no rashes General Limitations: Present no limitations Course Course Course Narrative: Patient received: 2 L bolus NS, ondansetron IV. Patient was started on insulin drip. Case d/w hospitalist who accepted patient to be admitted to the ICU for further treatment and management of DKA. Quality Measures none Orders Category Date Time Status EKG (ED ONLY) *Do not use* NOW Care 08/14/24 23:22 Completed Fingerstick [Bedside Blood Glucose] NOW Care 08/15/24 00:02 Completed EKG (ED Only) Stat Exams 08/14/24 23:22 Draft Beta Hydroxybutyrate Stat Lab 08/14/24 23:52 Completed CBC Stat Lab 08/14/24 23:52 Completed CMP [Comprehensive Metabolic Panel] Stat Lab 08/14/24 23:52 Completed Drug Screen,Urine Stat Lab 08/15/24 01:48 Completed HCG,Qualitative Serum Stat Lab 08/14/24 23:52 Completed Lipase Stat Lab 08/14/24 23:52 Completed Magnesium Stat Lab 08/15/24 00:43 Completed VBG [Venous Blood Gas] Stat Lab 08/15/24 00:38 Completed Insulin Reg 100 Units/100 ml [Myxredlin] Med 08/15/24 00:45 Discontinued 100 unit in 100 ml IV 0.1 unit/kg/hr Ondansetron Inj [Zofran Inj] Med 08/15/24 00:58 Discontinued 4 mg IV X1 ONE Ondansetron Odt [Zofran Odt] Med 08/14/24 23:22 Discontinued 4 mg PO X1 ONE Sodium Chloride 0.9% 1000 ml [Ns] 1,000 ml Med 08/15/24 00:45 Discontinued IV 999 mls/hr Sodium Chloride 0.9% 1000 ml [Ns] 1,000 ml Med 08/15/24 00:45 Discontinued IV 999 mls/hr Vital Signs Vital signs: Vital Signs Temperature 97.6 F 08/14/24 23:12 Pulse Rate 148 H 08/14/24 23:12 Respiratory Rate 20 08/14/24 23:12 Blood Pressure 164/104 H 08/14/24 23:12 Pulse Oximetry (%) 98 08/14/24 23:12 Oxygen Delivery Method Room Air 08/14/24 23:12 Procedures -ED Procedure Comment EKG manual reading, 08/14/24 2308 hours, my interpretation: sinus tachycardia possible atrial flutter, rate: 144bpm, no ST elevation, no acute ischemic changes, interpreted as normal Nausea/Vomiting/Diarrhea MDM Narrative MDM Narrative:: Scribe Attestation: I, Derrick Rodriguez, am scribing for and in the presence of Dr. Gregory. Provider Notation: Although this document has been carefully reviewed, there may still be some phonetic and other typographical errors. These errors are purely grammatical due to imperfections in the software program and should not be construed in any way to compromise the substance of the patient's medical care during this visit. Patient data External records reviewed:: [facility] previous records Clinical information provided by:: patient Social determinants that could affect healthcare access:: none Patient has the following chronic illnesses:: diabetes mellitus type 2 insulin-dependent, medication noncompliance, hypertension, anxiety, cholecystectomy How is presenting disease/condition affected by chronic disease/condition?: exacerbated by Evaluation data The following diagnostics were reviewed and interpreted by me:: lab results and EKG tracing(s) Lab and/or radiology exams considered but not ordered:: none Interpretation Summary: Labs show: Hyperglycemia 495, leukocytosis 17,000, anion gap 25, bicarb 16.4, ABG pH 7.36 pCO2 34 HCO3 19, creatinine 1.5, BUN 25, lactic acid 3.4, alkaline phosphatase 130, lipase 65, beta-hydroxybutyrate 5.0. UA unremarkable, Utox positive for marijuana. Medications / Prescriptions Medications / Prescriptions considered but not ordered:: n/a Medication administrations:: Medication Administration History Discontinued Medications Acetaminophen (Acetaminophen 325 Mg Tablet) 650 mg PO Q4HR PRN PRN Reason: PAIN SCALE 1-3 (mild Stop: 09/14/24 01:17 Acetaminophen (Acetaminophen 325 Mg Tablet) 650 mg PO Q4HR PRN PRN Reason: Fever > 100.4 and pain 1-3 Stop: 09/14/24 01:17 Hydrocodone Bitart/Acetaminophen (Hydrocodone/Apap 5/325 Tablet) 1 tab PO Q6HR PRN PRN Reason: PAIN SCALE 4-6 (Moderate Stop: 08/20/24 01:35 Last Admin: 08/16/24 14:31 Dose: 1 tab Documented By: SP Al Hydrox/Mg Hydrox/Simethicone (Mg Hyd/Al Hyd/Vania (Maalox Reg) Susp 30 Ml Udc) 30 ml PO QID PRN PRN Reason: Dyspepsia Stop: 09/14/24 05:59 Last Admin: 08/15/24 03:08 Dose: 30 ml Documented By: GB Buspirone HCl (Buspirone Hcl 5 Mg Tablet) 10 mg PO BID ZORAIDA Stop: 09/15/24 12:14 Last Admin: 08/17/24 09:08 Dose: 10 mg Documented By: Admin: 08/16/24 20:11 Dose: 10 mg Documented By: Admin: 08/16/24 12:45 Dose: 10 mg Documented By: SP Capsaicin (Capsaicin Cr 60 Gm Tube) 0 gm TOP X1 ONE Stop: 08/15/24 08:47 Last Admin: 08/15/24 10:35 Dose: 60 gm Documented By: EF Capsaicin (Capsaicin Cr 60 Gm Tube) 0 gm TOP TID ZORAIDA Stop: 09/14/24 14:29 Last Admin: 08/17/24 05:29 Dose: Not Given Documented By: CHEL Non-Admin Reason: Patient Refused Admin: 08/16/24 21:03 Dose: Not Given Documented By: ARABELLA Non-Admin Reason: Patient Refused Admin: 08/16/24 14:32 Dose: 1 applicatio Documented By: Admin: 08/16/24 05:35 Dose: Not Given Documented By: KELSI Non-Admin Reason: Patient Refused Admin: 08/15/24 21:18 Dose: 1 applicatio Documented By: Admin: 08/15/24 15:59 Dose: 1 applicatio Documented By: TREMAINE Comments: brought up from ER Dextrose (Dextrose 50%-Water Inj 50 Ml Syringe) 25 ml IV PRNMRX1 PRN PRN Reason: Blood Sugar - Low Hydromorphone HCl (Hydromorphone Inj 2 Mg/Ml Vial) 0.25 mg IVP X1 ONE Stop: 08/15/24 08:13 Last Admin: 08/15/24 08:45 Dose: 0.25 mg Documented By: NEIL Hydroxyzine HCl (Hydroxyzine Hcl 25 Mg Tablet) 50 mg PO Q6HR PRN PRN Reason: AGITATION OR ANXIETY Stop: 09/15/24 14:42 Last Admin: 08/16/24 14:59 Dose: 50 mg Documented By: SHASHI Insulin Human Regular (Myxredlin) 100 unit in 100 mls @ 9.435 mls/hr IV .[id number] PRN; Protocol PRN Reason: PER PROTOCOL Stop: 09/14/24 00:44 Last Titration: 08/15/24 08:00 Dose: 0 unit/kg/hr, 0 mls/hr Documented By: NEIL Co-signed By: FAITH Titration: 08/15/24 07:39 Dose: 0.025 unit/kg/hr, 2.359 mls/hr Documented By: NEIL Co-signed By: FAITH Titration: 08/15/24 06:00 Dose: 0.05 unit/kg/hr, 4.717 mls/hr Documented By: GB Co-signed By: FRANCHESCA Titration: 08/15/24 05:00 Dose: 0.05 unit/kg/hr, 4.717 mls/hr Documented By: KOKI Co-signed By: AC Titration: 08/15/24 04:00 Dose: 0.1 unit/kg/hr, 9.435 mls/hr Documented By: KOKI Co-signed By: EE Titration: 08/15/24 03:00 Dose: 0.1 unit/kg/hr, 9.435 mls/hr Documented By: KOKI Co-signed By: EE Titration: 08/15/24 02:00 Dose: 0.1 unit/kg/hr, 9.435 mls/hr Documented By: SF Co-signed By: KOKI Admin: 08/15/24 00:53 Dose: 0.1 unit/kg/hr, 9.435 mls/hr Documented By: KOKI Co-signed By: LESLIE Sodium Chloride (Ns) 1,000 mls @ 999 mls/hr IV .Q1H1M ONE Stop: 08/15/24 01:45 Last Infusion: 08/15/24 02:24 Dose: Infused Documented By: Admin: 08/15/24 00:53 Dose: 999 mls/hr Documented By: KOKI Sodium Chloride (Ns) 1,000 mls @ 999 mls/hr IV .Q1H1M ONE Stop: 08/15/24 01:45 Last Infusion: 08/15/24 02:24 Dose: Infused Documented By: Admin: 08/15/24 00:53 Dose: 999 mls/hr Documented By: KOKI Potassium Chloride (Kcl Ivpb) 10 meq in 100 mls @ 100 mls/hr IV .Q1H PRN PRN Reason: IF POTASSIUM LESS THAN 3.3 Stop: 09/14/24 01:22 Magnesium Sulfate (Magnesium Sulfate Ivpb) 2 gm in 50 mls @ 25 mls/hr IV .Q2H PRN PRN Reason: PER DKA PROTOCOL Stop: 09/14/24 01:22 Dextrose/Lactated Ringer's (D5-Lr) 1,000 mls @ 250 mls/hr IV .Q4H PRN PRN Reason: PER PROTOCOL Stop: 09/14/24 01:22 Lactated Ringer's (Lactated Ringers) 1,000 mls @ 250 mls/hr IV .Q4H PRN PRN Reason: PER PROTOCOL Stop: 08/16/24 01:22 Potassium Chloride 20 meq/ (Lactated Ringer's) 1,010 mls @ 250 mls/hr IV .Q4H3M PRN PRN Reason: K LEVEL 3.3 TO 5.3mM/L Stop: 09/14/24 01:22 Potassium Chloride 40 meq/ (Lactated Ringer's) 1,020 mls @ 250 mls/hr IV .Q4H5M PRN PRN Reason: K LEVEL < 3.3 mM/L Stop: 09/14/24 01:22 Potassium Chloride 40 meq/ (Dextrose/Lactated Ringer's) 1,020 mls @ 250 mls/hr IV .Q4H5M PRN PRN Reason: K LEVEL < 3.3mM/L Stop: 09/14/24 01:22 Last Infusion: 08/15/24 13:37 Dose: Infused Documented By: Infusion: 08/15/24 09:40 Dose: 150 mls/hr Documented By: Admin: 08/15/24 07:57 Dose: 250 mls/hr Documented By: NEIL Potassium Cl/Dextrose/Lact Ringer's (Kcl 20 Meq/L In D5-Lr) 20 meq in 1,000 mls @ 250 mls/hr IV .Q4H PRN PRN Reason: K LEVEL 3.3 TO 5.3 mM/L Stop: 09/14/24 01:22 Last Infusion: 08/15/24 07:42 Dose: 0 mls/hr Documented By: Infusion: 08/15/24 07:42 Dose: 250 mls/hr Documented By: Admin: 08/15/24 05:00 Dose: 250 mls/hr Documented By: GB Potassium Chloride (Kcl Ivpb) 10 meq in 100 mls @ 50 mls/hr IV PRN PRN PRN Reason: K LEVEL 3.3 to 5.3 & BG > 200 Stop: 09/14/24 01:22 Potassium Phosphate (Pot Phos 15 Mmol In Ns 250 Ml) 15 mmol in 250 mls @ 62.5 mls/hr IV PRN PRN PRN Reason: Phosphate <= 1mg/dL Stop: 09/14/24 01:22 Sodium Phosphate 15 mmol/ (Sodium Chloride) 255 mls @ 62.5 mls/hr IV .Q4H5M PRN PRN Reason: Phosphate <= 1mg/dL and K> than 5.3 Stop: 09/14/24 01:22 Lactated Ringer's (Lactated Ringers) 1,000 mls @ 1,000 mls/hr IV Q1H ZORAIDA Stop: 08/15/24 03:29 Last Infusion: 08/15/24 05:00 Dose: Infused Documented By: Admin: 08/15/24 03:53 Dose: 1,000 mls/hr Documented By: Infusion: 08/15/24 03:14 Dose: Infused Documented By: Admin: 08/15/24 02:14 Dose: 1,000 mls/hr Documented By: SF Potassium Chloride (Kcl Ivpb) 10 meq in 100 mls @ 100 mls/hr IV Q1H ZORAIDA Stop: 08/15/24 11:47 Last Admin: 08/15/24 10:55 Dose: Not Given Documented By: FAITH Non-Admin Reason: held per Admin: 08/15/24 10:55 Dose: Not Given Documented By: FAITH Non-Admin Reason: held per Admin: 08/15/24 09:41 Dose: Not Given Documented By: NEIL Non-Admin Reason: hold per Admin: 08/15/24 09:41 Dose: Not Given Documented By: NEIL Non-Admin Reason: hold per Magnesium Sulfate (Magnesium Sulfate Ivpb) 4 gm in 50 mls @ 12.5 mls/hr IV X1 ONE Stop: 08/15/24 11:48 Last Infusion: 08/15/24 12:45 Dose: Infused Documented By: Admin: 08/15/24 08:45 Dose: 12.5 mls/hr Documented By: EF Dextrose/Lactated Ringer's (D5-Lr) 1,000 mls @ 150 mls/hr IV .Q6H40M PRN PRN Reason: PER PROTOCOL Stop: 09/14/24 01:22 Last Admin: 08/16/24 04:52 Dose: 150 mls/hr Documented By: FF Potassium Chloride (Kcl Ivpb) 10 meq in 100 mls @ 100 mls/hr IV Q1H ZORAIDA Stop: 08/15/24 20:54 Last Admin: 08/15/24 22:13 Dose: 100 mls/hr Documented By: Infusion: 08/15/24 22:13 Dose: Infused Documented By: Admin: 08/15/24 21:17 Dose: 100 mls/hr Documented By: Infusion: 08/15/24 19:28 Dose: Infused Documented By: Admin: 08/15/24 18:28 Dose: 100 mls/hr Documented By: Infusion: 08/15/24 18:26 Dose: Infused Documented By: Admin: 08/15/24 17:26 Dose: 100 mls/hr Documented By: TREMAINE Insulin Glargine (Insulin Glargine (Lantus) 5 Unit/0.05 Ml (Per 5 Units)) 24 unit SC QDAY STA Stop: 08/15/24 09:00 Last Admin: 08/15/24 11:30 Dose: Not Given Documented By: EF Non-Admin Reason: Cancelled by Provider Insulin Glargine (Insulin Glargine (Lantus) 5 Unit/0.05 Ml (Per 5 Units)) 20 unit SC QDAY STA Stop: 08/15/24 09:05 Last Admin: 08/15/24 09:22 Dose: 20 unit Documented By: NEIL Co-signed By: FAITH Insulin Glargine (Insulin Glargine (Lantus) 5 Unit/0.05 Ml (Per 5 Units)) 20 unit SC QDAY ZORAIDA Stop: 09/15/24 08:59 Last Admin: 08/17/24 09:07 Dose: 20 unit Documented By: TATYANA Co-signed By: GAUTAM Admin: 08/16/24 08:49 Dose: 20 unit Documented By: SP Co-signed By: JUAN Insulin Human Lispro (Insulin Lispro (Admelog) 1 Unit/0.01 Ml Unit) 0 unit SC ACHS [facility], [facility]1983; Protocol Stop: 09/14/24 11:29 Last Admin: 08/17/24 07:56 Dose: Not Given Documented By: BF Non-Admin Reason: Per Protocol Admin: 08/16/24 20:12 Dose: 4 unit Documented By: RB Co-signed By: RL Admin: 08/16/24 12:50 Dose: 4 unit Documented By: SP Co-signed By: PATRIA Admin: 08/16/24 08:48 Dose: 4 unit Documented By: SP Co-signed By: JUAN Admin: 08/15/24 20:32 Dose: Not Given Documented By: KELSI Non-Admin Reason: Per Protocol Comments: BG 119 Admin: 08/15/24 17:37 Dose: 4 unit Documented By: TREMAINE Co-signed By: YRN Admin: 08/15/24 11:31 Dose: 8 unit Documented By: NEIL Co-signed By: FAITH Labetalol HCl (Labetalol Inj 5 Mg/Ml Vial 20 Ml) 10 mg IVP X1 ONE Stop: 08/15/24 05:17 Last Admin: 08/15/24 05:22 Dose: 10 mg Documented By: KOKI Melatonin (Melatonin 3 Mg Tablet) 3 mg PO HS [facility], [facility]1983 Stop: 09/15/24 20:59 Last Admin: 08/16/24 20:11 Dose: 3 mg Documented By: RB Metoclopramide HCl (Metoclopramide Inj 5 Mg/Ml Vial 2 Ml) 10 mg IVP X1 ONE; Protocol Stop: 08/16/24 10:41 Last Admin: 08/16/24 10:51 Dose: 10 mg Documented By: SHASHI Ondansetron HCl (Ondansetron Odt 4 Mg Tabrap) 4 mg PO X1 ONE; Protocol Stop: 08/14/24 23:23 Last Admin: 08/14/24 23:38 Dose: 4 mg Documented By: Ondansetron HCl (Ondansetron Inj 2 Mg/Ml Inj 2 Ml) 4 mg IV X1 ONE; Protocol Stop: 08/15/24 00:59 Last Admin: 08/15/24 01:01 Dose: 4 mg Documented By: KOKI Ondansetron HCl (Ondansetron Inj 2 Mg/Ml Inj 2 Ml) 4 mg IV Q6HR PRN; Protocol PRN Reason: NAUSEA OR VOMITING Stop: 09/14/24 01:29 Last Admin: 08/16/24 14:31 Dose: 4 mg Documented By: Admin: 08/15/24 05:25 Dose: 4 mg Documented By: KOKI Pantoprazole Sodium (Pantoprazole Inj 40 Mg Vial) 40 mg IVP QDAY [facility], [facility]1983 Stop: 09/14/24 08:59 Last Admin: 08/15/24 08:45 Dose: 40 mg Documented By: EF Pantoprazole Sodium (Pantoprazole Inj 40 Mg Vial) 40 mg IV X1 ONE Stop: 08/15/24 03:05 Last Admin: 08/15/24 03:08 Dose: 40 mg Documented By: KOKI Polyethylene Glycol (Polyethylene Glycol 17 Gm Packet) 17 gm PO QDAY [facility], [facility]1983 Stop: 09/15/24 10:29 Last Admin: 08/16/24 12:47 Dose: Not Given Documented By: SHASHI Non-Admin Reason: Nausea Potassium Chloride (Potassium Chloride 20 Meq Tabcr) 40 meq PO X1 ONE Stop: 08/15/24 20:56 Last Admin: 08/15/24 21:17 Dose: 40 meq Documented By: KELSI Sennosides (Senna Tablet) 1 tab PO QDAY ZORAIDA; Protocol Stop: 09/15/24 10:29 Last Admin: 08/16/24 12:46 Dose: Not Given Documented By: SHASHI Non-Admin Reason: HAVING DIASRRHEA Sodium Bicarbonate (Sodium Bicarb Inj 8.4% Syr 50 Ml Syringe) 50 ml IV PRN PRN PRN Reason: For ph <= to 7.0 Stop: 09/14/24 01:22 as above Consultations Consultation(s) initiated? (list below): Yes Consultation #1 (Physician, Specialty, Details): Hospitalist made aware of the patient?s HPI, PMHx, lab and/or radiology results. Treatment plan was discussed. Will admit for further evaluation and management. Accepts patient for admission. Time: 02:36 Diagnosis Nausea Differential Diagnosis: other (DKA, UTI, kidney infection, drug abuse, drug reaction, gastroparesis) Most likely diagnosis given after review of the tests above:: DKA Admission Indicated Admission indicated?: indicated Admission Request Was there a request for admission?: Yes Admission Attestation Admission request attestation: Discussed case with [] from Hospitalist service regarding admission. Discussed patients ED course, exam findings, labs, and radiology results. The Hospitalist [agrees,declines] to accept the patient for admission. Disposition Plan Disposition Plan: Admit Critical Care Time Critical Care Time Critical Care Time: Yes Total Critical Care Time (min.): 35 Attestation: The high probability of sudden, clinically significant deterioration in the patient?s condition required the highest level of my preparedness to intervene urgently. The services I provided to this patient were to treat and/or prevent clinically significant deterioration. Services included the following: chart data review, reviewing nursing notes and/or old charts, documentation time, sr risk management consultant collaboration regarding findings and treatment options, medication orders and management, direct patient care, vital sign assessments and ordering, interpreting and reviewing diagnostic studies and lab tests. Aggregate critical care time includes only time during which I was engaged in work directly related to the patient?s care, as described above, whether at bedside or elsewhere in the Emergency Department. It did not include time spent performing other reported procedures or the services of residents, students, nurses or physician assistants. Discharge Plan Plan Patient Disposition: Admit Acute Care w/in Hospital Patient condition on transfer: Stable Problem List Clinical Impression: Diabetic ketoacidosis
[2024-08-15 01:44] LABS: Magnesium 1.8 mg/dL (1.6-2.6)
--- NOTE | 2024-08-15 01:45 | ESHP_ITS ---
Documentation for date of: 08/15/24 HPI History of Present Illness History of present illness: 33-year-old female with past medical history of diabetes mellitus type 2 insulin-dependent, hypertension, anxiety, s/p cholecystectomyon who came to the ED with chief complaint of nausea, abdominal pain and diarrhea. Patient is poor historian. she stated that she has been presenting nausea and vomiting as well as diarrhea on and off for around 1 month and today started presenting diffuse abdominal pain with an intensity 6 out of 10 associated to severe nausea and vomiting for which she decided to come to the ED. Mrs. Johnson denied skipping insulin doses and stated that she is compliant with her medications Lantus subcu 15 units twice daily and metformin 1000 mg p.o. twice daily. Denied chest pain, dizziness, headache, dysuria, cough, back pain , shortness of breath or any other associated symptoms different that the mentioned above. ED course: Initial vitals: BP 164/104 HR 148 RR 20 afebrile SpO2 98% on room air Pertinent labs: Hyperglycemia 495, leukocytosis 17,000, anion gap 25, bicarb 16.4, ABG pH 7.36 pCO2 34 HCO3 19 ,creatinine 1.5 BUN 25, lactic acid 3.4, corrected calcium 10.4, alkaline phosphatase 130, lipase 65, beta- hydroxybutyrate 5.0, UA unremarkable, U tox positive for marijuana Imaging: EKG shows sinus tachycardia HR 144 At the ED the patient received: 2 L bolus NS, ondansetron IV x 1, patient was started on insulin drip and admitted to the ICU for further treatment and management of DKA Past medical history: Diabetes mellitus type 2 insulin-dependent, hypertension, anxiety, s/p cholecystectomy Past surgical history: Cholecystectomy/July 2024 Family history: Nonsignificant Social history: Smoked marijuana, denies tobacco, alcohol or any other recreational drugs. Travel history: None relevant Allergies: No known allergies Review of Systems Review of Systems Systems Reviewed: All systems reviewed, normal except as documented Past Medical History Past Medical History NEUROLOGIC: Negative Neurological Disorders, Cerebrovascular Accident, Transient Ischemic Attacks (TIA), Dementia, Alzheimer's Disease, Parkinson's Disease, Brain Tumor, Meningitis, Seizures, Epilepsy, Multiple Sclerosis, Cerebral Palsy, Amyotrophic Lateral Sclerosis (ALS/Kylie Gehrig's), Guillain-Cerro Syndrome, Spina Bifida, Paralysis, Peripheral Neuropathy, Roper's Palsy, Subdural Hematoma, Migraine, Head Trauma, Spinal Cord Injury or Traumatic Brain Injury CARDIAC: Positive Hypertension; Negative Cardiac Disorders, Myocardial Infarction, Cardiac Arrhythmia, Atrial Fibrillation, Angina, Heart Murmur, Coronary Artery Disease, Atherosclerotic Heart Disease, Peripheral Vascular Disease, Hypercholesterolemia, Aneurysm, Congestive Heart Failure, Congenital Heart Disease, Valvular Heart Disease, Rheumatic Fever, Cardiomyopathy, Edema, Pericarditis, Cellulitis, Deep Vein Thrombosis, Hypotension or Varicose Veins RESPIRATORY: Negative Chronic Obstructive Pulmonary Disease (COPD), Asthma, Bronchitis, Emphysema, Pneumonia, Pulmonary Fibrosis, Cystic Fibrosis, Tuberculosis, Pulmonary Embolism, Pulmonary Edema or Sleep Apnea GASTROINTESTINAL: Negative Gastrointestinal Disorders, Hepatitis, Cirrhosis, Pancreatitis, Celiac Disease, Gall Bladder Disease, Gastrointestinal Bleed, Esophageal Varices, Saenz's Esophagus, Colitis, Ulcerative Colitis, Diverticulitis, Diverticulosis, Ulcer, Colorectal Cancer, Irritable Bowel, Crohn's Disease, Obstructive Bowel, Hiatal Hernia, Hemorrhoids, Gastroesophageal Reflux Disease or Obesity GENITOURINARY: Negative Genitourinary Disorders, Renal Disease, Kidney Stones, Polycystic Kidney Disease, Neurogenic Bladder, Inguinal Hernia, Dialysis, Prostate Cancer or Benign Prostatic Hyperplasia REPRODUCTIVE: Negative Breast Cancer, Endometriosis, Genital Herpes, Gonorrhea, Pelvic Inflammatory Disease, Previous Pregnancies, Syphilis, Testicular Cancer or Uterine Prolapse MUSCULOSKELETAL: Negative Musculoskeletal Disorders, Muscular Dystrophy, Myasthenia Gravis, Marfan's Syndrome, Bone Cancer, Arthritis, Rheumatoid Arthritis, Osteoporosis, Degenerative Disk Disease, Gout, Scoliosis, Carpal Tunnel Syndrome, Fibromyalgia, Fractures, Degenerative Joint Disease, Osteomyelitis or Poliovirus ENT: Negative Cataracts, Glaucoma, Blind, Retinal Detachment, Macular Degeneration, Ear Infection, Deafness, Head Trauma or Eye Prosthesis ENDOCRINE: Positive Endocrine Disorders and Diabetes Mellitus Type 2; Negative Diabetes Mellitus Type 1, Ingalls's Syndrome, Hardee's Disease, Hyperthyroidism, Hypothyroidism, Parathyroid Disease, Pituitary Disease, Systemic Lupus Erythematosus, Syndrome of Inappropriate Antidiuretic Hormone (SIADH), Adrenal Disease or Graves' Disease HEMATOLOGIC: Negative Blood Disorders, Anemia, Leukemia, Hemophilia, Thalassemia, Sickle Cell Disease or Clotting Problems PSYCHO/SOCIAL: Positive Recreational Drug Use (MARIJUANA) and Anxiety; Negative Psychiatric Problems, Schizophrenia, Bipolar Disorder, Depression, Behavior Problems, Self-Mutilation, Attention Deficit Disorder, Attention Deficit Hyperactivity Disorder, Depression, Post Traumatic Stress Disorder or Eating Disorder OTHER HISTORY: Positive Hospitalization; Negative Autoimmune Disease, Down Syndrome, Autism, Developmental Delay, Shingles, Falls, Blood Transfusions, Blood Transfusion Reaction, Anesthesia Reactions, Organ Transplant, Chemotherapy, Radiation Therapy, Hyperbaric Therapy, MRSA, VRSA, Vancomycin-Resistant Enterococci, Human Immunodeficiency Virus (HIV), Chicken Pox, Measles, Mumps, Rubella (Malay Measles), Pertussis, Clostridium Difficile, Cancer, Breast Cancer, Cervical Cancer, Colorectal Cancer, Lung Cancer, Ovarian Cancer, Prostate Cancer or Testicular Cancer Family History FAMILY HISTORY: Negative Family Psychiatric Problems, Family Respiratory Disorders, Family Cardiac Disorders, Family Gastrointestinal Problems, Family Cancer, Family Surgery or Family Anesthesia Reaction Surgical History SURGICAL: Negative Cardiac Surgery, Open Heart Surgery, Coronary Artery Bypass Graft, Valve Replacement, Vascular Surgery, Coronary Stent, Cardiac Catheterization, Pacemaker, Angiogram, Auto Implanted Cardiovert Defib, Carotid Endarterectomy, Endocrine Surgery, Thyroidectomy, Ear Surgery, Tympanostomy Tube, Eye Surgery, Nose Surgery, Oral Surgery, Tonsillectomy, Adenoidectomy, Cochlear Implant, Corneal Transplant, Throat Surgery, Abdominal Surgery, Tracheostomy, Gastric Bypass Surgery, Gastrostomy, Bowel Surgery, Nephrectomy, Transurethral Resection, Joint Replacement, Amputation, Open Reduction Internal Fixation, Arthroscopy, Neurologic Surgery, Brain Shunt, Mastectomy, Lumpectomy, Hysterectomy, Tubal Ligation, Section, Vasectomy or Organ Transplant Social History SMOKING STATUS: Current some day smoker SECOND HAND EXPOSURE: No SUBSTANCE USE: does not use Exam Vital Signs Temp Pulse Resp BP Pulse Ox O2 Del Method 97.6 F 138 H 26 H 156/129 H 99 Room Air 08/14/24 23:12 08/15/24 01:15 08/15/24 01:15 08/15/24 01:15 08/15/24 01:15 08/15/24 01:15 Narrative Exam General: Anxious, well appearing, alert, interactive. HEENT: NC/AT, PERRL, EOMI, Good conjugate gaze, moist mucous membranes, oropharynx clear. Neck: Supple, No masses, No adenopathy, carotid pulse 2+ bilaterally without bruits, No JVD, normal range of motion. Chest: Symmetrical, atraumatic, and with equal expansion , Nontender on palpation no deformity and no crepitus. CVS: S1 and S2 present, Regular rate and rhythm, No murmurs, rubs or gallops perceived during auscultation. Lungs: Normal respiratory effort, CTAB, no wheezing, rhonchi or rales perceived during auscultation, No intercostal or subcostal retraction. Abdomen : Soft, no tenderness to palpation, no guarding ,no rebound, +BS, no organomegaly. Extremities: No edema, warm well perfused, normal tone and ROM, strength and sensation intact, cap refill less than 2, +2 dp equal bilaterally, able to move all 4 extremities spontaneously. Skin: Intact, no rashes, no lesions, no erythema or jaundice noted Neuro: AOx4,no focal neurologic deficits noted, GCS 15 Psych: Anxious labile mood and affect Results: Labs 08/15/24 05:40 08/15/24 16:01 Labs: Short CBC 08/14/24 Range/Units 23:52 WBC 17.0 H (3.6-11.0) Thou/mm3 Hgb 14.0 (12.0-16.0) g/dL Hct 39.3 (36.0-46.0) % Plt Count 380 D (140-440) Thou/mm3 BMP 08/14/24 23:52 Sodium 130 L Potassium 3.4 Chloride 89 L Carbon Dioxide 16.4 L BUN 25 H Creatinine 1.5 H Glucose 495 H* Calcium 10.4 Liver Function 08/14/24 Range/Units 23:52 Total Bilirubin 1.4 H (0.3-1.2) mg/dL AST 14 (0-34) U/L ALT 12 (10-49) U/L Alkaline Phosphatase 130 H (46-116) U/L Albumin 5.4 H (3.5-5.0) gm/dL ABG Interpretation ABG results: 08/15/24 00:38 VBG pH 7.45 VBG pCO2 27 L VBG pO2 72 H VBG Base Excess -4 L Quality Measures Quality Measures sepsis Current suspected stage: ruled out Possible source: unknown Blood cultures ordered: yes Antibiotic ordered: No Medications Home Medications and Allergies Home Medications ?Medication ?Instructions ?Recorded ?Confirmed ?Type amlodipine 10 mg tablet 10 mg PO QDAY 07/13/24 08/15/24 History atorvastatin 80 mg tablet 80 mg PO QDAY 07/13/24 08/15/24 History cetirizine 10 mg tablet 10 mg PO QDAY 07/13/24 07/31/24 History lisinopril 20 1 tab PO QDAY 07/13/24 07/31/24 History mg-hydrochlorothiazide 25 mg tablet triamcinolone acetonide 0.1 % 1 applic topical BID 07/13/24 08/15/24 History topical cream insulin glargine 100 unit/mL 15 unit SCi BID 08/15/24 08/15/24 History subcutaneous solution (Lantus U-100 Insulin) Allergies Allergy/AdvReac Type Severity Reaction Status Date / Time No Known Allergies Allergy Verified 07/31/24 13:28 Visit Medications Acetaminophen (Acetaminophen 325 Mg Tablet) 650 mg PO Q4HR PRN PRN Reason: Fever > 100.4 and pain 1-3 Stop: 09/14/24 01:17 Hydrocodone Bitart/Acetaminophen (Hydrocodone/Apap 5/325 Tablet) 1 tab PO Q6HR PRN PRN Reason: PAIN SCALE 4-6 (Moderate Stop: 08/20/24 01:35 Dextrose (Dextrose 50%-Water Inj 50 Ml Syringe) 25 ml IV [id number] PRN PRN Reason: Blood Sugar - Low Insulin Human Regular (Myxredlin) 100 unit in 100 mls @ 9.435 mls/hr IV .[id number] PRN; Protocol PRN Reason: PER PROTOCOL Stop: 09/14/24 00:44 Last Admin: 08/15/24 00:53 Dose: 0.1 unit/kg/hr, 9.435 mls/hr Potassium Chloride (Kcl Ivpb) 10 meq in 100 mls @ 100 mls/hr IV .Q1H PRN PRN Reason: IF POTASSIUM LESS THAN 3.3 Stop: 09/14/24 01:22 Magnesium Sulfate (Magnesium Sulfate Ivpb) 2 gm in 50 mls @ 25 mls/hr IV .Q2H PRN PRN Reason: PER DKA PROTOCOL Stop: 09/14/24 01:22 Dextrose/Lactated Ringer's (D5-Lr) 1,000 mls @ 250 mls/hr IV .Q4H PRN PRN Reason: PER PROTOCOL Stop: 09/14/24 01:22 Lactated Ringer's (Lactated Ringers) 1,000 mls @ 250 mls/hr IV .Q4H PRN PRN Reason: PER PROTOCOL Stop: 08/16/24 01:22 Potassium Chloride 20 meq/ (Lactated Ringer's) 1,010 mls @ 250 mls/hr IV .Q4H3M PRN PRN Reason: K LEVEL 3.3 TO 5.3mM/L Stop: 09/14/24 01:22 Potassium Chloride 40 meq/ (Lactated Ringer's) 1,020 mls @ 250 mls/hr IV .Q4H5M PRN PRN Reason: K LEVEL < 3.3 mM/L Stop: 09/14/24 01:22 Potassium Chloride 40 meq/ (Dextrose/Lactated Ringer's) 1,020 mls @ 250 mls/hr IV .Q4H5M PRN PRN Reason: K LEVEL < 3.3mM/L Stop: 09/14/24 01:22 Potassium Cl/Dextrose/Lact Ringer's (Kcl 20 Meq/L In D5-Lr) 20 meq in 1,000 mls @ 250 mls/hr IV .Q4H PRN PRN Reason: K LEVEL 3.3 TO 5.3 mM/L Stop: 09/14/24 01:22 Potassium Chloride (Kcl Ivpb) 10 meq in 100 mls @ 50 mls/hr IV PRN PRN PRN Reason: K LEVEL 3.3 to 5.3 & BG > 200 Stop: 09/14/24 01:22 Potassium Phosphate (Pot Phos 15 Mmol In Ns 250 Ml) 15 mmol in 250 mls @ 62.5 mls/hr IV PRN PRN PRN Reason: Phosphate <= 1mg/dL Stop: 09/14/24 01:22 Sodium Phosphate 15 mmol/ (Sodium Chloride) 255 mls @ 62.5 mls/hr IV .Q4H5M PRN PRN Reason: Phosphate <= 1mg/dL and K> than 5.3 Stop: 09/14/24 01:22 Lactated Ringer's (Lactated Ringers) 1,000 mls @ 1,000 mls/hr IV Q1H [place] Stop: 08/15/24 03:29 Ondansetron HCl (Ondansetron Inj 2 Mg/Ml Inj 2 Ml) 4 mg IV Q6HR PRN; Protocol PRN Reason: NAUSEA OR VOMITING Stop: 09/14/24 01:29 Pantoprazole Sodium (Pantoprazole Inj 40 Mg Vial) 40 mg IVP QDAY [facility] Stop: 09/14/24 08:59 Sodium Bicarbonate (Sodium Bicarb Inj 8.4% Syr 50 Ml Syringe) 50 ml IV PRN PRN PRN Reason: For ph <= to 7.0 Stop: 09/14/24 01:22 Discontinued Medications Acetaminophen (Acetaminophen 325 Mg Tablet) 650 mg PO Q4HR PRN PRN Reason: PAIN SCALE 1-3 (mild Stop: 09/14/24 01:17 Sodium Chloride (Ns) 1,000 mls @ 999 mls/hr IV .Q1H1M ONE Stop: 08/15/24 01:45 Last Admin: 08/15/24 00:53 Dose: 999 mls/hr Sodium Chloride (Ns) 1,000 mls @ 999 mls/hr IV .Q1H1M ONE Stop: 08/15/24 01:45 Last Admin: 08/15/24 00:53 Dose: 999 mls/hr Ondansetron HCl (Ondansetron Odt 4 Mg Tabrap) 4 mg PO X1 ONE; Protocol Stop: 08/14/24 23:23 Last Admin: 08/14/24 23:38 Dose: 4 mg Ondansetron HCl (Ondansetron Inj 2 Mg/Ml Inj 2 Ml) 4 mg IV X1 ONE; Protocol Stop: 08/15/24 00:59 Last Admin: 08/15/24 01:01 Dose: 4 mg Assessment & Plan Plan 33-year-old female with past medical history of diabetes mellitus type 2 insulin-dependent, medication noncompliance, hypertension, anxiety, cholecystectomy and who came to the ED with chief complaint of nausea, abdominal pain and diarrhea. Patient is poor historian. she stated that she has been presenting nausea and vomiting as well as diarrhea on and off for around 1 month and today started presenting diffuse abdominal pain with an intensity 6 out of 10 with severe vomiting and nausea and that she was not able to tolerate p.o. intake for which she decided to come to the ED for further workup. patient denied skipping insulin doses and stated that she is compliant with her medications insulin Lantus subcu 15 units twice daily and metformin 1000 mg p.o. twice daily. Denied chest pain, dizziness, headache, shortness of breath or any other associated symptoms different to the mentioned above. ED course: Initial vitals: BP 164/104 HR 148 RR 20 afebrile SpO2 98% on room air Pertinent labs: Hyperglycemia 495, leukocytosis 17,000, anion gap 25, bicarb 16.4, ABG pH 7.36 pCO2 34 HCO3 19 ,creatinine 1.5 BUN 25, lactic acid 3.4, corrected calcium 10.4, alkaline phosphatase 130, lipase 65, beta- hydroxybutyrate 5.0, UA unremarkable, U tox positive for marijuana, Imaging: EKG shows sinus tachycardia HR 144 At the ED the patient received: 2 L bolus NS, ondansetron IV x 1, patient was started on insulin drip and admitted to the ICU for further treatment and management of DKA ASSISTANT FOOD SERVICE DIRECTOR: Stable CVS: #Sinus tachycardia Most likely secondary to dehydration in the setting of DKA ? Continue IV fluids per DKA protocol #History of hypertension ? Continue home medications when reconciled PULM: Stable GI: #Intractable nausea and vomiting In the setting of DKA vs cyclic vomiting in the setting of marijuana? Patient stated that has been presenting nausea and vomiting associated with diarrhea on and off for 1 month ? Ondansetron IV 4 mg every 6 hours as needed ? Follow-up electrolytes and replete as necessary #Abdominal pain Most likely in the setting of DKA Patient abdomen is soft, not guarded, no rigidity less likely acute abdomen ? [place] p.o. every 6 hours as needed ? IV ondansetron 4 mg every 6 hours as needed for nausea and vomiting RENAL: #Anion gap metabolic acidosis Secondary to DKA anion gap 25 ABG pH 7.36 pCO2 34 pO2 80 HCO3 19 ? Started insulin gtt. per DKA protocol ? Follow-up renal panel, VBG, and electrolytes every 4 hours #Lactic acidosis Secondary to DKA Lactic acid 3.4 ? Continue insulin gtt. per DKA protocol ? Follow-up lactic acid every 3 hours #CAROL Most likely prerenal in the setting of dehydration secondary to DKA ? Continue IV fluids per DKA protocol ? Avoid nephrotoxic drugs ? Renally dose medications ? Strict in and outs ? Follow-up renal panel #Hypercalcemia Most likely secondary to dehydration in the setting of DKA Corrected calcium 10.4 ? Continue IV fluids per DKA protocol ENDO: #Hyperglycemic DKA Secondary to medication noncompliance Glucose 495 bicarb 16.4 anion gap 25 ? Started insulin gtt. per DKA protocol ? Follow-up renal panel, VBG's, and electrolytes every 4 hours ? Follow-up and replete electrolytes as necessary #Type 2 diabetes mellitus insulin-dependent Hemoglobin A1c 6.2 Patient stated that she is compliant with her medications, patient takes metformin 1000 mg p.o. twice daily and Lantus 15 units subcu twice daily ? Hold home medications HEME/ONC: #Leukocytosis Most likely reactive in the setting of DKA Patient has been afebrile, does not look septic ? Follow-up blood cultures ? Follow-up CBC ID: Stable MSK: Stable SKIN: Stable FEN: N.p.o. Lines: Peripheral DVT prophylaxis: SCD GI prophylaxis: Protonix CODE STATUS: Full code Patient discussed with my attending Dr Sathya Rasmussen MD PGY-3 Disclaimer: Despite multiple revisions, due to the dictation software being used, the document bellow may not be free of grammatical errors including phonetic/typographic errors. However, this does not deter from our commitment to providing health care in the patient's best interest in mind. Attending Provider Attestation/Addendum The patient was seen and evaluated in the emergency room. She was admitted for DKA. Patient said that she had recent laparoscopic cholecystectomy in this hospital. She was using Trulicity that was increased by her PCP. However she developed nausea with the increased dose of Trulicity. She was changed to insulin. Her symptoms however persisted. She came to the ER and was diagnosed with DKA today. She denies fever. She has no chest pain. She is not dizzy or lightheaded. She has no syncope no presyncopal episode.
[2024-08-15 01:53] LABS: Lactate (Lactic Acid) 3.4 mMol/L (0.4-2.0)
[2024-08-15 02:00] LABS: Collection Type, Urine Clean Catch
[2024-08-15 02:09] LABS: Bilirubin,Urine Negative (Negative); Blood,Urine Negative (Negative); Clarity,Urine Clear (Clear/Hazy); Color,Urine Lt-Yellow (Lt Yel-Yel); Glucose, Urine 4+ (Negative); Hyaline Casts,Urine < 1 /hpf (0-1); Ketones,Urine 3+ (Negative); Leukocyte Esterase,Urine Negative (Negative); Nitrite,Urine Negative (Negative); PH,Urine 5.5 (5.0-7.0); Protein,Urine Trace (Neg - Trace); RBC,Urine 3 /hpf (0-3); Specific Gravity,Urine 1.028 (1.001-1.035); Squamous Epithelial Cell,Urine 5 /hpf (0-5); Urobilinogen,Urine Negative mg/dL (0.0-1.0); WBC,Urine 3 /hpf (0-5)
--- NOTE | 2024-08-15 02:13 | PC.RT ---
[place] sent to lab obtained at 02:28
[2024-08-15 02:14] LABS: Base Excess -5 (-3-3); HCO3 19 mEq/L (20-26); Inspired Oxygen, FIO2 21 %; O2 Saturation 96 % (91-98); PCO2 34 mmHg (32.0-48.0); PO2 80 mmHg (83-108); Puncture Site Right Radial; pH, Arterial 7.36 (7.35-7.45)
[2024-08-15] MEDS: RINGERS LACTATED 1000 ML 1,000 ML IV ×2 (02:14→03:53)
[2024-08-15 02:15] LABS: Allen Test Performed/OK
[2024-08-15 02:17] LABS: Amphetamine/Methamp Scrn,U Negative (Negative); Barbiturate Screen,Urine Negative (Negative); Benzodiazepines Screen,Urine Negative (Negative); Benzoylecgonine Screen, Ur Negative (Negative); Fentanyl Screen,Urine Negative (Negative); Opiate Screen,Urine Negative (Negative); THC Screen,Urine Positive (Negative)
[2024-08-15] MEDS: MG HYD/AL HYD/SIME (Maalox Reg) SUSP 30 ML UDC PO (03:08)
[2024-08-15] MEDS: PANTOPRAZOLE INJ 40 MG VIAL IV (03:08)
[2024-08-15 04:48] LABS: Reflex Lactate? Y
[2024-08-15] MEDS: KCL 20 mEq/L in D5-LR 20 MEQ/1,000 ML BAG 250 MEQ IV (05:00)
--- NOTE | 2024-08-15 05:16 | PC.NURSE ---
Called MD Rasmussen to inform of pt's current vitals. 0500 vitals were taken while pt was resting, was calm, still and quiet at the time. Order received for labetolol 10mg IVP x 1 dose.
[2024-08-15] MEDS: LABETALOL INJ 5 MG/ML VIAL 20 ML 10 MG IVP (05:22)
[2024-08-15 05:56] LABS: Base Excess, Venous 3 (-3-3); Basophils % (Auto) 0 % (0-2.5); Eosinophils % (Auto) 0 % (0-10); Hemoglobin 11.8 g/dL (12.0-16.0); Immature Granulocytes % (Auto) 0 % (0-0); Immature Granulocytes Auto 0.04 Thou/mm3 (0.00-0.00); Lactate (Lactic Acid) 2.3 mMol/L (0.4-2.0); Lymphocytes # (Auto) 1.2 Thou/mm3 (1.0-4.8); Lymphocytes % (Auto) 8 % (10-50); Mean Corpuscular HGB Conc 34.7 g/dl (31.0-37.0); Mean Corpuscular Hemoglobin 30.5 pg (25.0-35.0); Mean Corpuscular Volume 88 fL (80-100); Monocytes # (Auto) 0.7 Thou/mm3 (0.0-0.8); Monocytes % (Auto) 5 % (0-12); Neutrophils # (Auto) 12.3 Thou/mm3 (1.8-7.7); Neutrophils % (Auto) 86 % (37-80); Nucleated Red Blood Cell % 0 /100 WBC (0); O2 Saturation, Venous 63 % (96-97); PCO2, Venous 38 mmHg (36-56); PO2, Venous 32 mmHg (15-58); Platelet Count 323 Thou/mm3 (140-440); RDW Standard Deviation 39.8 fL (36.4-46.3); Red Blood Count 3.87 Miln/mm3 (4.00-5.20); White Blood Count 14.2 Thou/mm3 (3.6-11.0); pH, Venous 7.45 (7.33-7.66)
[2024-08-15 06:50] LABS: Albumin, Serum 4.6 gm/dL (3.5-5.0); Anion Gap 10 (7-16); BUN/Creatinine Ratio 21 Ratio (12-20); Blood Urea Nitrogen 21 mg/dL (9-23); Calcium 9.4 mg/dL (8.3-10.6); Calcium (Corrected) 9.4 mg/dL (8.5-10.1); Carbon Dioxide 26.7 mMol/L (20.0-31.0); Chloride 100 mMol/L (98-107); Estimated Creatinine Clearance 87.2 mL/min (>60); Glucose 161 mg/dL (74-106); Magnesium 1.4 mg/dL (1.6-2.6); Osmolality,Calculated 279 (275-295); Phosphorous 2.5 mg/dL (2.4-5.1); Sodium 137 mMol/L (136-145); eGFR > 60 See Note
[2024-08-15 06:55] LABS: Glucose Estimated Average 177 mg/dL (80-131); Hemoglobin A1C 7.8 % Hgb (4.8-6.0)
--- NOTE | 2024-08-15 07:48 | PC.NURSE ---
pharmacy called for potassium 40meq fluids
[2024-08-15] MEDS: POT CHL ADDITIVE 40 MEQ in DEXTROSE 5%-LACTATED RINGERS 1,000 ML 250 MEQ IV (07:57)
--- NOTE | 2024-08-15 08:00 | PC.NURSE ---
per Dr. Laura Soto pause insulin drip now
--- NOTE | 2024-08-15 08:17 | PC.NURSE ---
pharmacy called for [facility] 4g
--- NOTE | 2024-08-15 08:20 | PC.CC ---
Pt Lorraine Johnson is a 33 yr old female admitted to hospitalist services for DKA. BANQUET MANAGER CC met with pt at bedside to complete initial assessment. At time of encounter pt is noted to be alert and oriented to person, place and situation. Pt expressed understanding admission orders. Pt able to confirm all demographic information. Pt is from home, [address] [place] [address]. Pt reports living with her life partner Moy Steiner [phone], who she identifies as her surrogate DM. At baseline pt is independent with ambulation and with completion of ADLs. Pt reports recently having her gallbladder removed and post procedure she is requiring some assist with her ADLs. Pt is unemployed at this time. Pt is diabetic, recently restarted insulin management again and is taking oral medication. Pt is not on dialysis. Pt does not require supplemental O2 at home. Pt is followed by [facility] for primary care. At time of D/c pt will return home , with life partner providing transport.
[2024-08-15] MEDS: HYDROmorphone INJ 2 MG/ML VIAL 0.25 MG IVP (08:45)
[2024-08-15] MEDS: Magnesium Sulfate 4 GM Ivpb 4 GM/50 ML BAG IV (08:45)
[2024-08-15] MEDS: PANTOPRAZOLE INJ 40 MG VIAL IVP (08:45)
[2024-08-15 08:51] LABS: Reflex Lactate? Y
[2024-08-15] MEDS: INSULIN GLARGINE (Lantus) 5 UNIT/0.05 ML (PER 5 UNITS) 20 UNIT SC (09:22)
[2024-08-15 10:27] LABS: Misc Send Out* See Sep Rpt
[2024-08-15 10:29] LABS: Base Excess, Venous 3 (-3-3); O2 Saturation, Venous 85 % (96-97); PCO2, Venous 35 mmHg (36-56); PO2, Venous 46 mmHg (15-58); pH, Venous 7.48 (7.33-7.66)
[2024-08-15] MEDS: CAPSAICIN CR 60 GM TUBE TOP ×3 (10:35→21:18)
[2024-08-15 11:02] LABS: Albumin, Serum 4.5 gm/dL (3.5-5.0); Anion Gap 12 (7-16); BUN/Creatinine Ratio 17 Ratio (12-20); Blood Urea Nitrogen 17 mg/dL (9-23); Calcium 9.5 mg/dL (8.3-10.6); Calcium (Corrected) 9.5 mg/dL (8.5-10.1); Chloride 99 mMol/L (98-107); Estimated Creatinine Clearance 87.2 mL/min (>60); Glucose 228 mg/dL (74-106); Magnesium 2.2 mg/dL (1.6-2.6); Osmolality,Calculated 280 (275-295); Phosphorous 2.8 mg/dL (2.4-5.1); Potassium 3.4 mMol/L (3.4-5.1); Sodium 136 mMol/L (136-145); eGFR > 60 See Note
[2024-08-15] MEDS: INSULIN LISPRO (AdmeLOG) 1 UNIT/0.01 ML UNIT SC ×2 (11:31→17:37)
--- NOTE | 2024-08-15 16:26 | PD.RESEVENT ---
Documentation for date of: 08/15/24 Event Note Event Note: Ms Lorraine Johnson is a 33 year old female with PMH of IDDM2, HTN, HTN, anxiety who presents to the ER 08/14/2024 with nausea, abdominal pain and diarrhea x 1 month, found to be in DKA and admitted to the ICU for DKA management. Endorses compliance so cause of DKA attributed to poor oral intake secondary to nausea and vomiting. Patient blood sugars controlled, no longer on insulin drip, and anion gap closed. Patient is downgraded to floors for continued management. I have reviewed and discussed the patient's care with my attending, Dr. Cintia Melendez MD PGY-3
--- NOTE | 2024-08-15 16:35 | ESPR_ITS ---
<Statement entered by Frank Peres MD - 08/16/24 08:08> TOTAL CC TIME: 45 MIN I saw and evaluated the patient. I reviewed the resident?s note and agree with findings and plan as documented in the resident?s note. Upon my evaluation, this patient had a high probability of imminent or life- threatening deterioration due to DKA which required my direct attention, intervention, and personal management. This time is exclusive of time spent on procedures, which are documented separately if performed. Patient was seen and examined in the emergency room. Receiving aggressive IV fluids and insulin drip overnight. Anion gap has closed and serum bicarbonate has normalized therefore we have entered transition orders off of insulin drip to long-acting subcutaneous Lantus and sliding scale high- dose lispro. Acute kidney injury secondary to prerenal azotemia, improving. Transfer to [facility] later today Documentation for date of: 08/15/24 Subjective Subjective Interval history: The patient is a 33-year-old female with past medical history of diabetes mellitus type 2 insulin-dependent, hypertension, anxiety, s/p cholecystectomyon who came to the ED with chief complaint of nausea, abdominal pain and diarrhea. Patient is poor historian. she stated that she has been presenting nausea and vomiting as well as diarrhea on and off for around 1 month and today started presenting diffuse abdominal pain with an intensity 6 out of 10 associated to severe nausea and vomiting for which she decided to come to the ED. Mrs. Johnson denied skipping insulin doses and stated that she is compliant with her medications Lantus subcu 15 units twice daily and metformin 1000 mg p.o. twice daily. Denied chest pain, dizziness, headache, dysuria, cough, back pain , shortness of breath or any other associated symptoms different that the mentioned above. ED course: Initial vitals: BP 164/104 HR 148 RR 20 afebrile SpO2 98% on room air Pertinent labs: Hyperglycemia 495, leukocytosis 17,000, anion gap 25, bicarb 16.4, ABG pH 7.36 pCO2 34 HCO3 19 ,creatinine 1.5 BUN 25, lactic acid 3.4, corrected calcium 10.4, alkaline phosphatase 130, lipase 65, beta- hydroxybutyrate 5.0, UA unremarkable, U tox positive for marijuana Imaging: EKG shows sinus tachycardia HR 144 At the ED the patient received: 2 L bolus NS, ondansetron IV x 1, patient was started on insulin drip and admitted to the ICU for further treatment and management of DKA 08/15/2024: The patient was interviewed and examined at the bedside this morning. She reported moderate epigastric pain, and complaint of nausea. She denies any lightheadedness, sore throat, chest pain, any changes in bowel or bladder habit, fever or chills. Her blood pressure was stable, she was mildly tachycardic with heart rate of 108, labs are significant for downtrending WBC to 14.2, Potassium 3.0, A1c 7.8, blood sugar 161, lactic acid 2.3, magnesium 1.4. Later his electrolytes were repleted and repeat electrolyte levels were WNL. The patient's insulin drip was switched to subcutaneous Lantus 24 units daily x 1 for today, followed by 20 units daily from tomorrow. The patient was downgraded to hospitalist team A. Exam Vital Signs Temp Pulse Resp BP Pulse Ox O2 Del Method 98.4 F 108 H 18 127/98 H 98 Room Air 08/15/24 11:00 08/15/24 11:00 08/15/24 11:00 08/15/24 11:00 08/15/24 11:00 08/15/24 11:00 Narrative Exam General: Obese female, no acute distress, Alert and Oriented x 3 HEENT: Moist mucous membranes, oropharynx clear Neck: Supple, No masses, No JVD CVS: S1S2 Regular rate and rhythm, No murmurs, rubs or gallops Lungs: Clear to auscultation with no accessory use, no wheeze no rhonchi Abd: Soft, NT/ND, +BS, no organomegaly Ext: No edema, warm and well perfused Skin: No rash Psych: Appropriate mood and affect Objective Labs 08/15/24 05:40 08/15/24 10:21 Labs: Laboratory Results - last 24 hr 08/14/24 08/15/24 08/15/24 23:52 00:38 00:43 WBC 17.0 H RBC 4.53 Hgb 14.0 Hct 39.3 MCV 87 MCH 30.9 MCHC 35.6 RDW Std Deviation 39.3 Plt Count 380 D Neut % (Auto) 88 H Lymph % (Auto) 8 L [place] % (Auto) 3 Eos % (Auto) 0 Baso % (Auto) 0 Neut # (Auto) 15.0 H Lymph # (Auto) 1.3 [place] # (Auto) 0.5 Eos # (Auto) 0.0 Baso # (Auto) 0.1 Immature Gran # (Auto) 0.07 H Absolute Nucleated RBC 0.00 Immature Gran % 0 Nucleated RBC % 0 Puncture Site ABG pH ABG pCO2 ABG pO2 ABG HCO3 ABG O2 Saturation ABG Base Excess VBG pH 7.45 VBG pCO2 27 L VBG pO2 72 H VBG O2 Sat (Crystal) 95 L VBG Base Excess -4 L FiO2 Sodium 130 L Potassium 3.4 Chloride 89 L Carbon Dioxide 16.4 L Anion Gap 25 H BUN 25 H Creatinine 1.5 H Estim Creat Clear Calc 58.2 L eGFR 47 L BUN/Creatinine Ratio 17 Glucose 495 H* Estimated Ave Glu mg/dL Hemoglobin A1c Calculated Osmolality 287 Lactic Acid 3.4 H Calcium 10.4 Corrected Calcium 10.4 H Phosphorus Magnesium 1.8 Total Bilirubin 1.4 H AST 14 ALT 12 Alkaline Phosphatase 130 H Total Protein 8.7 H Albumin 5.4 H Globulin 3.3 Albumin/Globulin Ratio 1.6 Lipase 65 H Beta-Hydroxybutyrate/Acetoacetate 5.0 H HCG, Qual Negative Ur Collection Type Urine Color Urine Clarity Urine pH Ur Specific [place] Urine Protein Urine Glucose (UA) Urine Ketones Urine Blood Urine Nitrite Urine Bilirubin Urine Urobilinogen (Auto) Ur Leukocyte Esterase Urine RBC Urine WBC Ur Squamous Epith Cells Ur Transition Epith Cell Ur Renal Epithelial Cell Calcium Carbonate Cryst Calcium Phosphate Cryst Calcium Oxalate Crystal Leucine Crystals Cystine Crystals Uric Acid Crystals Triple Phos Crystals Tyrosine Crystals Amorphous Crystals Urine Bacteria Cellular Casts Epithelial Casts Fatty Casts Hyaline Casts Granular Casts Waxy Casts Broad Casts RBC Casts Urine Mucus Urine Trichomonas Ur Yeast w Hyphae Urine Yeast (Budding) Urine Sperm Ur Oval Fat Bodies Ur Culture Indicated? Urine Opiates Screen Urine Fentanyl Screen Ur Barbiturates Screen U Amphetamin/Meth Scrn U Benzodiazepines Scrn U Cocaine Metab Screen U Marijuana (THC) Screen 08/15/24 08/15/24 08/15/24 01:48 01:48 01:48 WBC RBC Hgb Hct MCV MCH MCHC RDW Std Deviation Plt Count Neut % (Auto) Lymph % (Auto) [place] % (Auto) Eos % (Auto) Baso % (Auto) Neut # (Auto) Lymph # (Auto) [place] # (Auto) Eos # (Auto) Baso # (Auto) Immature Gran # (Auto) Absolute Nucleated RBC Immature Gran % Nucleated RBC % Puncture Site ABG pH ABG pCO2 ABG pO2 ABG HCO3 ABG O2 Saturation ABG Base Excess VBG pH VBG pCO2 VBG pO2 VBG O2 Sat (Crystal) VBG Base Excess FiO2 Sodium Potassium Chloride Carbon Dioxide Anion Gap BUN Creatinine Estim Creat Clear Calc eGFR BUN/Creatinine Ratio Glucose Estimated Ave Glu mg/dL Hemoglobin A1c Calculated Osmolality Lactic Acid Calcium Corrected Calcium Phosphorus Magnesium Total Bilirubin AST ALT Alkaline Phosphatase Total Protein Albumin Globulin Albumin/Globulin Ratio Lipase Beta-Hydroxybutyrate/Acetoacetate HCG, Qual Ur Collection Type Cancelled Clean Catch Urine Color Cancelled Lt-Yellow Urine Clarity Cancelled Urine pH Ur Specific [place] Urine Protein Urine Glucose (UA) Urine Ketones Urine Blood Urine Nitrite Urine Bilirubin Urine Urobilinogen (Auto) Ur Leukocyte Esterase Urine RBC Urine WBC Ur Squamous Epith Cells Ur Transition Epith Cell Ur Renal Epithelial Cell Calcium Carbonate Cryst Calcium Phosphate Cryst Calcium Oxalate Crystal Leucine Crystals Cystine Crystals Uric Acid Crystals Triple Phos Crystals Tyrosine Crystals Amorphous Crystals Urine Bacteria Cellular Casts Epithelial Casts Fatty Casts Hyaline Casts Granular Casts Waxy Casts Broad Casts RBC Casts Urine Mucus Urine Trichomonas Ur Yeast w Hyphae Urine Yeast (Budding) Urine Sperm Ur Oval Fat Bodies Ur Culture Indicated? Urine Opiates Screen Urine Fentanyl Screen Ur Barbiturates Screen U Amphetamin/Meth Scrn U Benzodiazepines Scrn U Cocaine Metab Screen U Marijuana (THC) Screen 08/15/24 08/15/24 08/15/24 01:48 01:48 01:48 WBC RBC Hgb Hct MCV MCH MCHC RDW Std Deviation Plt Count Neut % (Auto) Lymph % (Auto) [place] % (Auto) Eos % (Auto) Baso % (Auto) Neut # (Auto) Lymph # (Auto) [place] # (Auto) Eos # (Auto) Baso # (Auto) Immature Gran # (Auto) Absolute Nucleated RBC Immature Gran % Nucleated RBC % Puncture Site ABG pH ABG pCO2 ABG pO2 ABG HCO3 ABG O2 Saturation ABG Base Excess VBG pH VBG pCO2 VBG pO2 VBG O2 Sat (Crystal) VBG Base Excess FiO2 Sodium Potassium Chloride Carbon Dioxide Anion Gap BUN Creatinine Estim Creat Clear Calc eGFR BUN/Creatinine Ratio Glucose Estimated Ave Glu mg/dL Hemoglobin A1c Calculated Osmolality Lactic Acid Calcium Corrected Calcium Phosphorus Magnesium Total Bilirubin AST ALT Alkaline Phosphatase Total Protein Albumin Globulin Albumin/Globulin Ratio Lipase Beta-Hydroxybutyrate/Acetoacetate HCG, Qual Ur Collection Type Urine Color Urine Clarity Clear Urine pH Cancelled 5.5 Ur Specific [place] Cancelled 1.028 Urine Protein Cancelled Urine Glucose (UA) Urine Ketones Urine Blood Urine Nitrite Urine Bilirubin Urine Urobilinogen (Auto) Ur Leukocyte Esterase Urine RBC Urine WBC Ur Squamous Epith Cells Ur Transition Epith Cell Ur Renal Epithelial Cell Calcium Carbonate Cryst Calcium Phosphate Cryst Calcium Oxalate Crystal Leucine Crystals Cystine Crystals Uric Acid Crystals Triple Phos Crystals Tyrosine Crystals Amorphous Crystals Urine Bacteria Cellular Casts Epithelial Casts Fatty Casts Hyaline Casts Granular Casts Waxy Casts Broad Casts RBC Casts Urine Mucus Urine Trichomonas Ur Yeast w Hyphae Urine Yeast (Budding) Urine Sperm Ur Oval Fat Bodies Ur Culture Indicated? Urine Opiates Screen Urine Fentanyl Screen Ur Barbiturates Screen U Amphetamin/Meth Scrn U Benzodiazepines Scrn U Cocaine Metab Screen U Marijuana (THC) Screen 08/15/24 08/15/24 08/15/24 01:48 01:48 01:48 WBC RBC Hgb Hct MCV MCH MCHC RDW Std Deviation Plt Count Neut % (Auto) Lymph % (Auto) [place] % (Auto) Eos % (Auto) Baso % (Auto) Neut # (Auto) Lymph # (Auto) [place] # (Auto) Eos # (Auto) Baso # (Auto) Immature Gran # (Auto) Absolute Nucleated RBC Immature Gran % Nucleated RBC % Puncture Site ABG pH ABG pCO2 ABG pO2 ABG HCO3 ABG O2 Saturation ABG Base Excess VBG pH VBG pCO2 VBG pO2 VBG O2 Sat (Crystal) VBG Base Excess FiO2 Sodium Potassium Chloride Carbon Dioxide Anion Gap BUN Creatinine Estim Creat Clear Calc eGFR BUN/Creatinine Ratio Glucose Estimated Ave Glu mg/dL Hemoglobin A1c Calculated Osmolality Lactic Acid Calcium Corrected Calcium Phosphorus Magnesium Total Bilirubin AST ALT Alkaline Phosphatase Total Protein Albumin Globulin Albumin/Globulin Ratio Lipase Beta-Hydroxybutyrate/Acetoacetate HCG, Qual Ur Collection Type Urine Color Urine Clarity Urine pH Ur Specific [place] Urine Protein Trace Urine Glucose (UA) Cancelled 4+ A Urine Ketones Cancelled 3+ A Urine Blood Cancelled Urine Nitrite Urine Bilirubin Urine Urobilinogen (Auto) Ur Leukocyte Esterase Urine RBC Urine WBC Ur Squamous Epith Cells Ur Transition Epith Cell Ur Renal Epithelial Cell Calcium Carbonate Cryst Calcium Phosphate Cryst Calcium Oxalate Crystal Leucine Crystals Cystine Crystals Uric Acid Crystals Triple Phos Crystals Tyrosine Crystals Amorphous Crystals Urine Bacteria Cellular Casts Epithelial Casts Fatty Casts Hyaline Casts Granular Casts Waxy Casts Broad Casts RBC Casts Urine Mucus Urine Trichomonas Ur Yeast w Hyphae Urine Yeast (Budding) Urine Sperm Ur Oval Fat Bodies Ur Culture Indicated? Urine Opiates Screen Urine Fentanyl Screen Ur Barbiturates Screen U Amphetamin/Meth Scrn U Benzodiazepines Scrn U Cocaine Metab Screen U Marijuana (THC) Screen 08/15/24 08/15/24 08/15/24 01:48 01:48 01:48 WBC RBC Hgb Hct MCV MCH MCHC RDW Std Deviation Plt Count Neut % (Auto) Lymph % (Auto) [place] % (Auto) Eos % (Auto) Baso % (Auto) Neut # (Auto) Lymph # (Auto) [place] # (Auto) Eos # (Auto) Baso # (Auto) Immature Gran # (Auto) Absolute Nucleated RBC Immature Gran % Nucleated RBC % Puncture Site ABG pH ABG pCO2 ABG pO2 ABG HCO3 ABG O2 Saturation ABG Base Excess VBG pH VBG pCO2 VBG pO2 VBG O2 Sat (Crystal) VBG Base Excess FiO2 Sodium Potassium Chloride Carbon Dioxide Anion Gap BUN Creatinine Estim Creat Clear Calc eGFR BUN/Creatinine Ratio Glucose Estimated Ave Glu mg/dL Hemoglobin A1c Calculated Osmolality Lactic Acid Calcium Corrected Calcium Phosphorus Magnesium Total Bilirubin AST ALT Alkaline Phosphatase Total Protein Albumin Globulin Albumin/Globulin Ratio Lipase Beta-Hydroxybutyrate/Acetoacetate HCG, Qual Ur Collection Type Urine Color Urine Clarity Urine pH Ur Specific [place] Urine Protein Urine Glucose (UA) Urine Ketones Urine Blood Negative Urine Nitrite Cancelled Negative Urine Bilirubin Cancelled Negative Urine Urobilinogen (Auto) Cancelled Ur Leukocyte Esterase Urine RBC Urine WBC Ur Squamous Epith Cells Ur Transition Epith Cell Ur Renal Epithelial Cell Calcium Carbonate Cryst Calcium Phosphate Cryst Calcium Oxalate Crystal Leucine Crystals Cystine Crystals Uric Acid Crystals Triple Phos Crystals Tyrosine Crystals Amorphous Crystals Urine Bacteria Cellular Casts Epithelial Casts Fatty Casts Hyaline Casts Granular Casts Waxy Casts Broad Casts RBC Casts Urine Mucus Urine Trichomonas Ur Yeast w Hyphae Urine Yeast (Budding) Urine Sperm Ur Oval Fat Bodies Ur Culture Indicated? Urine Opiates Screen Urine Fentanyl Screen Ur Barbiturates Screen U Amphetamin/Meth Scrn U Benzodiazepines Scrn U Cocaine Metab Screen U Marijuana (THC) Screen 08/15/24 08/15/24 08/15/24 01:48 01:48 01:48 WBC RBC Hgb Hct MCV MCH MCHC RDW Std Deviation Plt Count Neut % (Auto) Lymph % (Auto) [place] % (Auto) Eos % (Auto) Baso % (Auto) Neut # (Auto) Lymph # (Auto) [place] # (Auto) Eos # (Auto) Baso # (Auto) Immature Gran # (Auto) Absolute Nucleated RBC Immature Gran % Nucleated RBC % Puncture Site ABG pH ABG pCO2 ABG pO2 ABG HCO3 ABG O2 Saturation ABG Base Excess VBG pH VBG pCO2 VBG pO2 VBG O2 Sat (Crystal) VBG Base Excess FiO2 Sodium Potassium Chloride Carbon Dioxide Anion Gap BUN Creatinine Estim Creat Clear Calc eGFR BUN/Creatinine Ratio Glucose Estimated Ave Glu mg/dL Hemoglobin A1c Calculated Osmolality Lactic Acid Calcium Corrected Calcium Phosphorus Magnesium Total Bilirubin AST ALT Alkaline Phosphatase Total Protein Albumin Globulin Albumin/Globulin Ratio Lipase Beta-Hydroxybutyrate/Acetoacetate HCG, Qual Ur Collection Type Urine Color Urine Clarity Urine pH Ur Specific [place] Urine Protein Urine Glucose (UA) Urine Ketones Urine Blood Urine Nitrite Urine Bilirubin Urine Urobilinogen (Auto) Negative Ur Leukocyte Esterase Cancelled Negative Urine RBC Cancelled 3 Urine WBC Cancelled Ur Squamous Epith Cells Ur Transition Epith Cell Ur Renal Epithelial Cell Calcium Carbonate Cryst Calcium Phosphate Cryst Calcium Oxalate Crystal Leucine Crystals Cystine Crystals Uric Acid Crystals Triple Phos Crystals Tyrosine Crystals Amorphous Crystals Urine Bacteria Cellular Casts Epithelial Casts Fatty Casts Hyaline Casts Granular Casts Waxy Casts Broad Casts RBC Casts Urine Mucus Urine Trichomonas Ur Yeast w Hyphae Urine Yeast (Budding) Urine Sperm Ur Oval Fat Bodies Ur Culture Indicated? Urine Opiates Screen Urine Fentanyl Screen Ur Barbiturates Screen U Amphetamin/Meth Scrn U Benzodiazepines Scrn U Cocaine Metab Screen U Marijuana (THC) Screen 08/15/24 08/15/24 08/15/24 01:48 01:48 01:48 WBC RBC Hgb Hct MCV MCH MCHC RDW Std Deviation Plt Count Neut % (Auto) Lymph % (Auto) [place] % (Auto) Eos % (Auto) Baso % (Auto) Neut # (Auto) Lymph # (Auto) [place] # (Auto) Eos # (Auto) Baso # (Auto) Immature Gran # (Auto) Absolute Nucleated RBC Immature Gran % Nucleated RBC % Puncture Site ABG pH ABG pCO2 ABG pO2 ABG HCO3 ABG O2 Saturation ABG Base Excess VBG pH VBG pCO2 VBG pO2 VBG O2 Sat (Crystal) VBG Base Excess FiO2 Sodium Potassium Chloride Carbon Dioxide Anion Gap BUN Creatinine Estim Creat Clear Calc eGFR BUN/Creatinine Ratio Glucose Estimated Ave Glu mg/dL Hemoglobin A1c Calculated Osmolality Lactic Acid Calcium Corrected Calcium Phosphorus Magnesium Total Bilirubin AST ALT Alkaline Phosphatase Total Protein Albumin Globulin Albumin/Globulin Ratio Lipase Beta-Hydroxybutyrate/Acetoacetate HCG, Qual Ur Collection Type Urine Color Urine Clarity Urine pH Ur Specific [place] Urine Protein Urine Glucose (UA) Urine Ketones Urine Blood Urine Nitrite Urine Bilirubin Urine Urobilinogen (Auto) Ur Leukocyte Esterase Urine RBC Urine WBC 3 Ur Squamous Epith Cells Cancelled 5 Ur Transition Epith Cell Cancelled Ur Renal Epithelial Cell Cancelled Calcium Carbonate Cryst Cancelled Calcium Phosphate Cryst Cancelled Calcium Oxalate Crystal Cancelled Leucine Crystals Cancelled Cystine Crystals Cancelled Uric Acid Crystals Cancelled Triple Phos Crystals Cancelled Tyrosine Crystals Cancelled Amorphous Crystals Cancelled Urine Bacteria Cancelled None Cellular Casts Cancelled Epithelial Casts Cancelled Fatty Casts Cancelled Hyaline Casts Cancelled Granular Casts Waxy Casts Broad Casts RBC Casts Urine Mucus Urine Trichomonas Ur Yeast w Hyphae Urine Yeast (Budding) Urine Sperm Ur Oval Fat Bodies Ur Culture Indicated? Urine Opiates Screen Urine Fentanyl Screen Ur Barbiturates Screen U Amphetamin/Meth Scrn U Benzodiazepines Scrn U Cocaine Metab Screen U Marijuana (THC) Screen 08/15/24 08/15/24 08/15/24 01:48 02:12 05:40 WBC 14.2 H RBC 3.87 L Hgb 11.8 L D Hct 34.0 L MCV 88 MCH 30.5 MCHC 34.7 RDW Std Deviation 39.8 Plt Count 323 D Neut % (Auto) 86 H Lymph % (Auto) 8 L [place] % (Auto) 5 Eos % (Auto) 0 Baso % (Auto) 0 Neut # (Auto) 12.3 H Lymph # (Auto) 1.2 [place] # (Auto) 0.7 Eos # (Auto) 0.0 Baso # (Auto) 0.0 Immature Gran # (Auto) 0.04 H Absolute Nucleated RBC 0.00 Immature Gran % 0 Nucleated RBC % 0 Puncture Site Right Radial ABG pH 7.36 ABG pCO2 34 ABG pO2 80 L ABG HCO3 19 L ABG O2 Saturation 96 ABG Base Excess -5 L VBG pH 7.45 VBG pCO2 38 D VBG pO2 32 D VBG O2 Sat (Crystal) 63 L VBG Base Excess 3 FiO2 21 Sodium 137 Potassium 3.0 L Chloride 100 Carbon Dioxide 26.7 Anion Gap 10 BUN 21 Creatinine 1.0 D Estim Creat Clear Calc 87.2 eGFR > 60 BUN/Creatinine Ratio 21 H Glucose [address] Glu mg/dL 177 H Hemoglobin A1c 7.8 H Calculated Osmolality 279 Lactic Acid 2.3 H Calcium 9.4 Corrected Calcium 9.4 Phosphorus 2.5 Magnesium 1.4 L Total Bilirubin AST ALT Alkaline Phosphatase Total Protein Albumin 4.6 D Globulin Albumin/Globulin Ratio Lipase Beta-Hydroxybutyrate/Acetoacetate HCG, Qual Ur Collection Type Urine Color Urine Clarity Urine pH Ur Specific [place] Urine Protein Urine Glucose (UA) Urine Ketones Urine Blood Urine Nitrite Urine Bilirubin Urine Urobilinogen (Auto) Ur Leukocyte Esterase Urine RBC Urine WBC Ur Squamous Epith Cells Ur Transition Epith Cell Ur Renal Epithelial Cell Calcium Carbonate Cryst Calcium Phosphate Cryst Calcium Oxalate Crystal Leucine Crystals Cystine Crystals Uric Acid Crystals Triple Phos Crystals Tyrosine Crystals Amorphous Crystals Urine Bacteria Cellular Casts Epithelial Casts Fatty Casts Hyaline Casts < 1 Granular Casts Cancelled Waxy Casts Cancelled Broad Casts Cancelled RBC Casts Cancelled Urine Mucus Cancelled Urine Trichomonas Cancelled Ur Yeast w Hyphae Cancelled Urine Yeast (Budding) Cancelled Urine Sperm Cancelled Ur Oval Fat Bodies Cancelled Ur Culture Indicated? Cancelled Urine Opiates Screen Negative Urine Fentanyl Screen Negative Ur Barbiturates Screen Negative U Amphetamin/Meth Scrn Negative U Benzodiazepines Scrn Negative U Cocaine Metab Screen Negative U Marijuana (THC) Screen Positive A 08/15/24 10:21 WBC RBC Hgb Hct MCV MCH MCHC RDW Std Deviation Plt Count Neut % (Auto) Lymph % (Auto) [place] % (Auto) Eos % (Auto) Baso % (Auto) Neut # (Auto) Lymph # (Auto) [place] # (Auto) Eos # (Auto) Baso # (Auto) Immature Gran # (Auto) Absolute Nucleated RBC Immature Gran % Nucleated RBC % Puncture Site ABG pH ABG pCO2 ABG pO2 ABG HCO3 ABG O2 Saturation ABG Base Excess VBG pH 7.48 VBG pCO2 35 L VBG pO2 46 VBG O2 Sat (Crystal) 85 L VBG Base Excess 3 FiO2 Sodium 136 Potassium 3.4 Chloride 99 Carbon Dioxide 25.0 Anion Gap 12 BUN 17 Creatinine 1.0 Estim Creat Clear Calc 87.2 eGFR > 60 BUN/Creatinine Ratio 17 Glucose [address] Glu mg/dL Hemoglobin A1c Calculated Osmolality 280 Lactic Acid 1.0 Calcium 9.5 Corrected Calcium 9.5 Phosphorus 2.8 Magnesium 2.2 Total Bilirubin AST ALT Alkaline Phosphatase Total Protein Albumin 4.5 Globulin Albumin/Globulin Ratio Lipase Beta-Hydroxybutyrate/Acetoacetate HCG, Qual Ur Collection Type Urine Color Urine Clarity Urine pH Ur Specific [place] Urine Protein Urine Glucose (UA) Urine Ketones Urine Blood Urine Nitrite Urine Bilirubin Urine Urobilinogen (Auto) Ur Leukocyte Esterase Urine RBC Urine WBC Ur Squamous Epith Cells Ur Transition Epith Cell Ur Renal Epithelial Cell Calcium Carbonate Cryst Calcium Phosphate Cryst Calcium Oxalate Crystal Leucine Crystals Cystine Crystals Uric Acid Crystals Triple Phos Crystals Tyrosine Crystals Amorphous Crystals Urine Bacteria Cellular Casts Epithelial Casts Fatty Casts Hyaline Casts Granular Casts Waxy Casts Broad Casts RBC Casts Urine Mucus Urine Trichomonas Ur Yeast w Hyphae Urine Yeast (Budding) Urine Sperm Ur Oval Fat Bodies Ur Culture Indicated? Urine Opiates Screen Urine Fentanyl Screen Ur Barbiturates Screen U Amphetamin/Meth Scrn U Benzodiazepines Scrn U Cocaine Metab Screen U Marijuana (THC) Screen ABG Interpretation ABG results: 08/15/24 08/15/24 08/15/24 00:38 02:12 05:40 ABG pH 7.36 ABG pCO2 34 ABG pO2 80 L ABG HCO3 19 L ABG O2 Saturation 96 ABG Base Excess -5 L VBG pH 7.45 7.45 VBG pCO2 27 L 38 D VBG pO2 72 H 32 D VBG Base Excess -4 L 3 08/15/24 10:21 ABG pH ABG pCO2 ABG pO2 ABG HCO3 ABG O2 Saturation ABG Base Excess VBG pH 7.48 VBG pCO2 35 L VBG pO2 46 VBG Base Excess 3 Quality Measures Quality Measures none Assessment & Plan Assessment Current Active Medications: Generic Name Dose Route Start Last Admin Trade Name Freq PRN Reason Stop Dose Admin Acetaminophen 650 mg 08/15/24 01:36 Acetaminophen 325 Mg Tablet PO 09/14/24 01:17 Q4HR PRN Fever > 100.4 and pain 1-3 Hydrocodone Bitart/Acetaminophen 1 tab 08/15/24 01:36 Hydrocodone/Apap 5/325 Tablet PO 08/20/24 01:35 Q6HR PRN PAIN SCALE 4-6 (Moderate Al Hydrox/Mg Hydrox/Simethicone 30 ml 08/15/24 03:03 08/15/24 03:08 Mg Hyd/Al Hyd/Vania (Maalox Reg) Susp 30 Ml Udc PO 09/14/24 05:59 30 ml QID PRN Administration Dyspepsia Capsaicin 0 gm 08/15/24 14:30 08/15/24 15:59 Capsaicin Cr 60 Gm Tube TOP 09/14/24 14:29 1 applicatio TID ZORAIDA Administration Dextrose 25 ml 08/15/24 01:23 Dextrose 50%-Water Inj 50 Ml Syringe IV [id number] PRN Blood Sugar - Low Potassium Chloride 10 meq in 100 mls @ 100 mls/hr 08/15/24 01:23 Kcl Ivpb IV 09/14/24 01:22 .Q1H PRN IF POTASSIUM LESS THAN 3.3 Magnesium Sulfate 2 gm in 50 mls @ 25 mls/hr 08/15/24 01:23 Magnesium Sulfate Ivpb IV 09/14/24 01:22 .Q2H PRN PER DKA PROTOCOL Potassium Chloride 10 meq in 100 mls @ 50 mls/hr 08/15/24 01:23 Kcl Ivpb IV 09/14/24 01:22 PRN PRN K LEVEL 3.3 to 5.3 & BG > 200 Potassium Phosphate 15 mmol in 250 mls @ 62.5 mls/hr 08/15/24 01:23 Pot Phos 15 Mmol In Ns 250 Ml IV 09/14/24 01:22 PRN PRN Phosphate <= 1mg/dL Sodium Phosphate 15 mmol/ 255 mls @ 62.5 mls/hr 08/15/24 01:23 Sodium Chloride IV 09/14/24 01:22 .Q4H5M PRN Phosphate <= 1mg/dL and K> than 5.3 Dextrose/Lactated Ringer's 1,000 mls @ 150 mls/hr 08/15/24 09:03 D5-Lr IV 09/14/24 01:22 .Q6H40M PRN PER PROTOCOL Insulin Human Lispro 0 unit 08/15/24 11:30 08/15/24 11:31 Insulin Lispro (Admelog) 1 Unit/0.01 Ml Unit SC 09/14/24 11:29 8 unit ACHS ZORAIDA Administration Protocol Ondansetron HCl 4 mg 08/15/24 01:30 08/15/24 05:25 Ondansetron Inj 2 Mg/Ml Inj 2 Ml IV 09/14/24 01:29 4 mg Q6HR PRN Administration NAUSEA OR VOMITING Protocol Pantoprazole Sodium 40 mg 08/15/24 09:00 08/15/24 08:45 Pantoprazole Inj 40 Mg Vial IVP 09/14/24 08:59 40 mg QDAY ZORAIDA Administration Plan The patient is a 33-year-old female with significant past medical history of diabetes mellitus until now presumed to be type II, hypertension, anxiety, s/p cholecystectomy on July 2024 who presented to ED with chief complaint of nausea, abdominal pain and diarrhea was found to have DKA and is currently being managed for DKA. 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 -On Zofran as needed -On capsaicin local application 3 times daily Renal: #Metabolic acidosis #Lactic acidosis Secondary to DKA, complicated by lactic acidosis in the setting of metformin use -Treat underlying DKA #Hypokalemia -Monitor and replete as needed Hematology: #Leukocytosis Likely reactive in the setting of DKA -Continue to monitor #Mild normocytic anemia Etiology unclear at this point, likely differential blood loss 2/2 recent surgery, nutritional intake deficiency -Continue to monitor Endocrinology: #Hyperglycemia, resolved #DKA, resolved #Diabetes mellitus: Believed to be type II, but no labs were done for this Trigger factor for DKA unknown at this time, UA negative, no fever or any other signs or symptoms of infection -Patient switched to subcu Lantus 24 units time 1 for today, followed by 20 units Lantus daily from tomorrow, along with SSI -Continue to monitor blood sugar and electrolytes -IA-2 and C-peptide ordered, may follow-up with PCP for further results to determine if it is diabetes type 1/type II #ID: -No active issue at this point #MSK/skin -No active issues Hospital maintenance: Dispo: Patient admitted to ICU for further management of DKA, currently downgraded to MedSurg unit DVT prophylaxis: SCDs Diet: Carb consistent CODE STATUS: Full code The patient's management plan was discussed with my attending physician MD Abraham Cavanaugh MD, PGY2
[2024-08-15 16:48] LABS: Potassium 3.1 mMol/L (3.4-5.1)
[2024-08-15] MEDS: POTASSIUM CHL 10 mEq IVPB 10 MEQ/100 ML BAG 100 MEQ IV ×4 (17:26→22:13)
[2024-08-15] MEDS: POTASSIUM CHLORIDE 20 mEq TABCR 40 MEQ PO (21:17)
[2024-08-16] VITALS (7 sets, daily range): BP systolic 99–136; BP diastolic 76–100; PULSE 73–92; RESP 15–20; TEMP 36.1–37.2; O2SAT 98–100; BMI 38.2
[2024-08-16] MEDS: DEXTROSE 5%-LACTATED RINGERS 1,000 ML 150 ML IV (04:52)
[2024-08-16 06:16] LABS: Basophils # (Auto) 0.1 Thou/mm3 (0.0-0.2); Basophils % (Auto) 1 % (0-2.5); Eosinophils # (Auto) 0.1 Thou/mm3 (0.0-0.5); Eosinophils % (Auto) 1 % (0-10); Hematocrit 32.2 % (36.0-46.0); Hemoglobin 10.7 g/dL (12.0-16.0); Immature Granulocytes % (Auto) 0 % (0-0); Immature Granulocytes Auto 0.01 Thou/mm3 (0.00-0.00); Lymphocytes # (Auto) 2.7 Thou/mm3 (1.0-4.8); Lymphocytes % (Auto) 32 % (10-50); Mean Corpuscular HGB Conc 33.2 g/dl (31.0-37.0); Mean Corpuscular Hemoglobin 30.7 pg (25.0-35.0); Mean Corpuscular Volume 93 fL (80-100); Monocytes # (Auto) 0.7 Thou/mm3 (0.0-0.8); Monocytes % (Auto) 8 % (0-12); Neutrophils # (Auto) 4.7 Thou/mm3 (1.8-7.7); Neutrophils % (Auto) 57 % (37-80); Nucleated Red Blood Cell % 0 /100 WBC (0); Platelet Count 257 Thou/mm3 (140-440); RDW Standard Deviation 43.4 fL (36.4-46.3); Red Blood Count 3.48 Miln/mm3 (4.00-5.20); White Blood Count 8.2 Thou/mm3 (3.6-11.0)
[2024-08-16 06:53] LABS: Anion Gap 9 (7-16); BUN/Creatinine Ratio 16 Ratio (12-20); Blood Urea Nitrogen 13 mg/dL (9-23); Calcium 9.1 mg/dL (8.3-10.6); Calcium (Corrected) 9.1 mg/dL (8.5-10.1); Carbon Dioxide 26.2 mMol/L (20.0-31.0); Chloride 103 mMol/L (98-107); Creatinine (Component) 0.8 mg/dL (0.6-1.3); Estimated Creatinine Clearance 106.8 mL/min (>60); Glucose 113 mg/dL (74-106); Magnesium 1.8 mg/dL (1.6-2.6); Osmolality,Calculated 276 (275-295); Phosphorous 3.5 mg/dL (2.4-5.1); Potassium 3.6 mMol/L (3.4-5.1); Sodium 138 mMol/L (136-145); eGFR > 60 See Note
[2024-08-16] MEDS: INSULIN LISPRO (AdmeLOG) 1 UNIT/0.01 ML UNIT SC ×3 (08:48→20:12)
[2024-08-16] MEDS: INSULIN GLARGINE (Lantus) 5 UNIT/0.05 ML (PER 5 UNITS) 20 UNIT SC (08:49)
--- NOTE | 2024-08-16 10:40 | PC.NURSE ---
DR ROSENBAUM CALLED AND INFORMED PATIENT IS C/O NAUSEA, ABD PAIN AND IS CRYING. NAUSEA MED NOT DUE FOR ANOTHER HOUR. STATED WILL PUT IN AN ORDER.
[2024-08-16] MEDS: METOCLOPRAMIDE INJ 5 MG/ML VIAL 2 ML 10 MG IVP (10:51)
--- NOTE | 2024-08-16 10:55 | PC.SS ---
Rounding: ICU downgrade, monitor 1 more day for nausea and pain and possible DC tomorrow
--- NOTE | 2024-08-16 11:54 | PC.NURSE ---
DR VALADEZIQ CALLED AND INFORMED PATIENT IS C/O ANXIETY AND REQUESTING MEDICATION. B/P 136/100 HR 92. B/P HAS BEEN INCREASING SLOWLY, MAYBE DUE TO HER NOT BEING ON HER B/P MEDS. STATED WOULD LOOK AT HER CHART.
[2024-08-16] MEDS: BusPIRone HCL 5 MG TABLET 10 MG PO ×2 (12:45→20:11)
[2024-08-16] MEDS: ONDANSETRON INJ 2 MG/ML INJ 2 ML 4 MG IV (14:31)
[2024-08-16] MEDS: HYDROcodone/APAP 5/325 TABLET 1 TAB PO (14:31)
[2024-08-16] MEDS: CAPSAICIN CR 60 GM TUBE TOP (14:32)
--- NOTE | 2024-08-16 14:40 | PC.NURSE ---
PATIENT VERY ANXIOUS STATES TO FEEL VERY TENSE. ASKED IF SHE HAS HAD ANXIETY BEFORE AND WHAT SHE HAS TAKEN. STATED HYDROXYZINE. SHE STATES SHE TOLD THE DOCTOR IN THE MORNING BUT WAS TOLD THAT IS FOR ALLERGIES. PATIENT HAS BEEN CRYING INTERMITTENTLY AND VERY ANXIOUS CANT KEEP STILL. SHE STATES SHE HAS TRIED TO CALM DOWN BUT SHE CANT. PATIENT ADVISED TO CLOSE HER EYES AND TAKE SLOW DEEP BREATHES AND TO ALSO TRY COUNTING BACKWARD FROM 10 OR A BIGGER NUMBER. [facility] CALLED AND INFORMED OF PATIENT STATUS.
[2024-08-16] MEDS: hydrOXYzine HCL 25 MG TABLET 50 MG PO (14:59)
--- NOTE | 2024-08-16 15:25 | ESPR_ITS ---
<Statement entered by Bharat Hawkins MD - 08/16/24 17:18> Patient was seen and examined at the bedside. Patient was nauseous, sad and was crying at the bedside. She explained that she has been not feeling well due to abdominal pain and nausea after eating her breakfast. Therefore, patient was given BuSpar 10 twice daily and hydroxyzine which patient take as home medication. Labs unremarkable and blood sugars were stable on Lantus. Will keep patient for 1 more day given the fact that she was complaining of nausea and abdominal pain. Pending C-peptide level. Electrolytes were managed as necessary. All labs and orders were reviewed. I saw and examined the patient, and I agree with current management stated by Dr Ivet MD,PGY1. Plan of care was discussed with the attending physician and resident physician. Disclaimer: Despite multiple revisions, due to the dictation software being used, the document bellow may not be free of grammatical errors including phonetic/typographic errors. However, this does not deter from our commitment to providing health care in the patient's best interest in mind. Dr. Jazzmine MD, PGY 2 Documentation for date of: 08/16/24 Subjective Subjective Interval history: Patient has a past medical history diabetes mellitus type 2 insulin-dependent, hyperlipidemia, hypertension, GERD, recent diagnosis of cirrhosis, and marijuana use. Overnight patient was downgraded from ICU to floors for continued management of DKA which has since resolved. Patient stated that she had recently stopped taking her metformin and Trulicit and recently restarted on glargine. Patient stated he had a cholecystectomy on 07/19/2024 and a recent ER visit that required MRI which patient was recommended to remain off her metformin. Patient was not on metformin for the last couple days and only recently restarted glargine 15 twice daily but she was also not taking. Trulicity was DC'd by provider outpatient. Patient says she has a history of anxiety and has been taking hydroxyzine. Exam Vital Signs Temp Pulse Resp BP Pulse Ox O2 Del Method 98.9 F 92 18 136/100 H 100 Room Air 08/16/24 12:00 08/16/24 12:00 08/16/24 12:00 08/16/24 12:00 08/16/24 12:00 08/16/24 12:00 Narrative Exam General Appearance: Alert & Oriented X3, well-nourished female who is sitting up in chair at bedside, in no acute distress. HEENT: Skull symmetrical and atraumatic. Conjunctivae pin and moist. Pupils equal, round, reactive to light and accommodation (PERRL). External ear without lesion or discharge. Straight, nares patient, mucosa pink, no discharge. No thyroid nodule appreciated. No cervical lymphadenopathy. Cardio: Normal Rate and Rhythm with S1 and S2 heart sounds. No murmurs or extra heart sounds auscultated. No bruits on carotid auscultation. No peripheral edema or cyanosis. Lungs: Symmetric with good expansion. Chest and back non-tender. Breath sounds vesicular without crackles, wheezing or rhonchi Abdomen: Non-tender, Non-distended, Normal Reactive Bowel Sounds Neuro: Alert, cooperative, oriented to person, place, and time. Speech clear. CN grossly intact. Upper motor strength 5/5 and Lower motor strength 5/5. Sensation intact. Objective Labs 08/16/24 04:45 08/16/24 04:45 Labs: Laboratory Results - last 24 hr 08/15/24 08/16/24 16:01 04:45 WBC 8.2 D RBC 3.48 L Hgb 10.7 L Hct 32.2 L MCV 93 MCH 30.7 MCHC 33.2 RDW Std Deviation 43.4 Plt Count 257 D Neut % (Auto) 57 Lymph % (Auto) 32 [place] % (Auto) 8 Eos % (Auto) 1 Baso % (Auto) 1 Neut # (Auto) 4.7 Lymph # (Auto) 2.7 [place] # (Auto) 0.7 Eos # (Auto) 0.1 Baso # (Auto) 0.1 Immature Gran # (Auto) 0.01 H Absolute Nucleated RBC 0.00 Immature Gran % 0 Nucleated RBC % 0 Sodium 138 Potassium 3.1 L 3.6 D Chloride 103 Carbon Dioxide 26.2 Anion Gap 9 BUN 13 Creatinine 0.8 Estim Creat Clear Calc 106.8 eGFR > 60 BUN/Creatinine Ratio 16 Glucose 113 H D Calculated Osmolality 276 Calcium 9.1 Corrected Calcium 9.1 Phosphorus 3.5 Magnesium 1.8 Albumin 4.0 D ABG Interpretation ABG results: 08/15/24 08/15/24 08/15/24 00:38 02:12 05:40 ABG pH 7.36 ABG pCO2 34 ABG pO2 80 L ABG HCO3 19 L ABG O2 Saturation 96 ABG Base Excess -5 L VBG pH 7.45 7.45 VBG pCO2 27 L 38 D VBG pO2 72 H 32 D VBG Base Excess -4 L 3 08/15/24 10:21 ABG pH ABG pCO2 ABG pO2 ABG HCO3 ABG O2 Saturation ABG Base Excess VBG pH 7.48 VBG pCO2 35 L VBG pO2 46 VBG Base Excess 3 Quality Measures Quality Measures none Assessment & Plan Assessment Current Active Medications: Generic Name Dose Route Start Last Admin Trade Name Freq PRN Reason Stop Dose Admin Acetaminophen 650 mg 08/15/24 01:36 Acetaminophen 325 Mg Tablet PO 09/14/24 01:17 Q4HR PRN Fever > 100.4 and pain 1-3 Hydrocodone Bitart/Acetaminophen 1 tab 08/15/24 01:36 08/16/24 14:31 Hydrocodone/Apap 5/325 Tablet PO 08/20/24 01:35 1 tab Q6HR PRN Administration PAIN SCALE 4-6 (Moderate Al Hydrox/Mg Hydrox/Simethicone 30 ml 08/15/24 03:03 08/15/24 03:08 Mg Hyd/Al Hyd/Vania (Maalox Reg) Susp 30 Ml Udc PO 09/14/24 05:59 30 ml QID PRN Administration Dyspepsia Buspirone HCl 10 mg 08/16/24 12:15 08/16/24 12:45 Buspirone Hcl 5 Mg Tablet PO 09/15/24 12:14 10 mg BID ZORAIDA Administration Capsaicin 0 gm 08/15/24 14:30 08/16/24 14:32 Capsaicin Cr 60 Gm Tube TOP 09/14/24 14:29 1 applicatio TID ZORAIDA Administration Dextrose 25 ml 08/15/24 01:23 Dextrose 50%-Water Inj 50 Ml Syringe IV [id number] PRN Blood Sugar - Low Hydroxyzine HCl 50 mg 08/16/24 14:43 08/16/24 14:59 Hydroxyzine Hcl 25 Mg Tablet PO 09/15/24 14:42 50 mg Q6HR PRN Administration AGITATION OR ANXIETY Insulin Glargine 20 unit 08/16/24 09:00 08/16/24 08:49 Insulin Glargine (Lantus) 5 Unit/0.05 Ml (Per 5 Units) SC 09/15/24 08:59 20 unit QDAY ZORAIDA Administration Insulin Human Lispro 0 unit 08/15/24 11:30 08/16/24 12:50 Insulin Lispro (Admelog) 1 Unit/0.01 Ml Unit SC 09/14/24 11:29 4 unit ACHS ZORAIDA Administration Protocol Melatonin 3 mg 08/16/24 21:00 Melatonin 3 Mg Tablet PO 09/15/24 20:59 HS [facility] Ondansetron HCl 4 mg 08/15/24 01:30 08/16/24 14:31 Ondansetron Inj 2 Mg/Ml Inj 2 Ml IV 09/14/24 01:29 4 mg Q6HR PRN Administration NAUSEA OR VOMITING Protocol Polyethylene Glycol 17 gm 08/16/24 10:30 08/16/24 12:47 Polyethylene Glycol 17 Gm Packet PO 09/15/24 10:29 Not Given QDAY [facility] Sennosides 1 tab 08/16/24 10:30 08/16/24 12:46 Senna Tablet PO 09/15/24 10:29 Not Given QDAY [facility] Protocol Plan Patient has a past medical history diabetes mellitus type 2 insulin-dependent, hyperlipidemia, hypertension, GERD, recent diagnosis of cirrhosis, and marijuana use who was directly admitted into the ICU on 08/15/2024 and downgraded to floors on 08/16/2024. #Diabetes mellitus type 2 insulin-dependent #Hyperglycemia, resolved #DKA, resolved Etiology: Patient has history of previous DKA episodes requiring hospitalization. Patient has been nonadherent to diabetic medication. Diagnostic tests -(08/15/2024) A1c 7.8 -Glucose fasting 113 Plan -C-peptide pending ? Insulin glargine 20 units SQ daily ?Lispro sliding scale -Protonix -Zofran #History of hypertension Given patient's blood pressure has been within normal range under 126 for systolic blood pressure, currently holding home medication Home medication includes amlodipine 10 and lisinopril hydrochlorothiazide 20-25 mg. Plan: -Hold home medication. -Please follow-up with primary care provider if these patient these medications need to be continued after discharge #History of anxiety Patient states that she has a history of anxiety and takes hydroxyzine. Plan: Hydroxyzine 50 mg p.o. every 6 HR as needed Buspirone 10 mg p.o. twice daily Melatonin 3 mg p.o. at bedtime #Sinus tachycardia, resolved #Metabolic acidosis, resolved #Lactic acidosis, resolved #Hypokalemia, resolved Health Maintenance: Disp: Pt is currently admitted to floors for further management of Diabetes Mellitus Type II, likely discharged tomorrow FEN: low carb consistent low DVT: compression device Code: Full code - The patient's plan was discussed with attending Dr. Chamberlain and senior residents Jazzmine Cooney MD PGY1 Internal Medicine Attending Provider Attestation/Addendum I have examined the patient, reviewed labs and imaging findings, discussed the case with the resident(s), and reviewed entered orders. I agree with the plan of care as outlined in this note, with these additional summaries/recommendations: Patient seen at bedside. Patient was downgraded from intensive care unit overnight for diabetic ketoacidosis. Anion gap closed x 2 and blood sugars now in appropriate range. We will continue basal insulin 20 units glargine daily and lispro sliding scale. Target blood sugars of 140-180. A1C 7.8%. Patient still endorsing intractable nausea and vomiting although significantly improved. Etiology likely secondary to DKA versus gastroparesis versus marijuana induced cyclic vomiting syndrome. Continue as needed Zofran and capsaicin cream. If nausea and vomiting improves and patient is tolerating diet then anticipate discharge in the next 24 to 48 hours. Repeat hematology and chemistry panel in AM. Dr. Chamberlain
[2024-08-16] MEDS: MELATONIN 3 MG TABLET PO (20:11)
[2024-08-17] VITALS: BP 110/80; PULSE 67; PULSE 78; RESP 16; TEMP 36.2; O2SAT 100
[2024-08-17 04:00] VITALS: BP 109/75; PULSE 74; PULSE 81; RESP 16; TEMP 36.4; O2SAT 99
[2024-08-17 06:15] LABS: Basophils # (Auto) 0.1 Thou/mm3 (0.0-0.2); Basophils % (Auto) 1 % (0-2.5); Eosinophils # (Auto) 0.1 Thou/mm3 (0.0-0.5); Eosinophils % (Auto) 1 % (0-10); Hematocrit 31.1 % (36.0-46.0); Hemoglobin 10.4 g/dL (12.0-16.0); Immature Granulocytes % (Auto) 0 % (0-0); Immature Granulocytes Auto 0.02 Thou/mm3 (0.00-0.00); Lymphocytes # (Auto) 3.1 Thou/mm3 (1.0-4.8); Lymphocytes % (Auto) 38 % (10-50); Mean Corpuscular HGB Conc 33.4 g/dl (31.0-37.0); Mean Corpuscular Hemoglobin 30.3 pg (25.0-35.0); Mean Corpuscular Volume 91 fL (80-100); Monocytes # (Auto) 0.6 Thou/mm3 (0.0-0.8); Monocytes % (Auto) 8 % (0-12); Neutrophils # (Auto) 4.2 Thou/mm3 (1.8-7.7); Neutrophils % (Auto) 52 % (37-80); Nucleated Red Blood Cell % 0 /100 WBC (0); Platelet Count 242 Thou/mm3 (140-440); RDW Standard Deviation 41.2 fL (36.4-46.3); Red Blood Count 3.43 Miln/mm3 (4.00-5.20); White Blood Count 8.2 Thou/mm3 (3.6-11.0)
[2024-08-17 06:38] LABS: Alanine Aminotransferase 18 U/L (10-49); Albumin, Serum 3.9 gm/dL (3.5-5.0); Albumin/Globulin Ratio 1.6 (1.2-2.2); Alkaline Phosphatase 82 U/L (46-116); Anion Gap 6 (7-16); Aspartate Amino Transferase 22 U/L (0-34); BUN/Creatinine Ratio 14 Ratio (12-20); Bilirubin,Total 1.2 mg/dL (0.3-1.2); Blood Urea Nitrogen 11 mg/dL (9-23); Calcium 9.3 mg/dL (8.3-10.6); Calcium (Corrected) 9.4 mg/dL (8.5-10.1); Carbon Dioxide 28.2 mMol/L (20.0-31.0); Chloride 104 mMol/L (98-107); Creatinine (Component) 0.8 mg/dL (0.6-1.3); Estimated Creatinine Clearance 112.5 mL/min (>60); Globulin 2.4 gm/dL (2.3-3.5); Glucose 79 mg/dL (74-106); Magnesium 1.7 mg/dL (1.6-2.6); Osmolality,Calculated 274 (275-295); Phosphorous 5.1 mg/dL (2.4-5.1); Potassium 3.6 mMol/L (3.4-5.1); Sodium 138 mMol/L (136-145); Total Protein 6.3 gm/dL (5.7-8.2); eGFR > 60 See Note
[2024-08-17 07:53] VITALS: BP 142/101; PULSE 81; RESP 18; TEMP 36.3; O2SAT 100
[2024-08-17 08:18] VITALS: PULSE 80
[2024-08-17] MEDS: INSULIN GLARGINE (Lantus) 5 UNIT/0.05 ML (PER 5 UNITS) 20 UNIT SC (09:07)
[2024-08-17] MEDS: BusPIRone HCL 5 MG TABLET 10 MG PO (09:08)
--- NOTE | 2024-08-17 10:53 | ESDS_ITS ---
<Statement entered by Diallo Ocasio MD - 08/18/24 12:26> I have discussed and was present for the essential components of the history, physical examination, diagnosis, and treatment plan with the resident. I agree with the patient's care as documented by the resident and amended herein by me. Diallo Ocasio MD. Planned Discharge Date 08/17/24 DS: Providers Provider Date of admission: 08/15/24 01:18 Primary care physician: Leslie Jaures PA-C Admitting Provider: Damian Mcdonnell MD Attending Provider on Admission: Joe Chamberlain MD Consults: 08/15/24 01:24 Referral Registered Dietitian Routine Comment: Attending Provider on DC: Diallo Ocasio MD Discharging Provider: Diallo Ocasio MD DS: Diagnosis Problem List Completed Was Problem List Reviewed/Reconciled?: Yes Hospital Course Hospital Course Hospital course: Ms Lorraine Johnson is a 33 year old female with PMH of IDDM2, HTN, HTN, anxiety who presents to the ER 08/14/2024 with nausea, abdominal pain and diarrhea x 1 month, found to be in DKA and admitted to the ICU for DKA management. Endorses compliance so cause of DKA attributed to poor oral intake secondary to nausea and vomiting. Patient did miss her insulin doses as well. Patient blood sugars controlled, no longer on insulin drip, and anion gap closed. Patient was downgraded to floors for continued management. She was kept for 1 day due to nausea and abdominal pain after eating and drinking. Today in the morning, patient was seen and examined at the bedside. She did not appear to have pain in the abdomen was not feeling nauseous and her anxiety was markedly improved. She was advised to follow-up with her PCP as outpatient within a week and continue her home medications. Patient was informed that part of the reason of her vomiting and nausea could be related to marijuana use. She is was medically stable to be discharged as her blood sugars were well-controlled. Patient is discharged to home. Problem list: # DKA: Resolved # Type 2 diabetes insulin-dependent # Hypoglycemia resolved # Follow-up on C-peptide levels as outpatient # History of hypertension # History of anxiety #Sinus tachycardia, resolved #Metabolic acidosis, resolved #Lactic acidosis, resolved #Hypokalemia, resolved Discharge instructions: Take all home medication as prescribed Take buspirone 10 mg twice daily for anxiety Take metoclopramide 10 mg every 6 hourly as needed for nausea and vomiting as needed Follow-up with your C-peptide levels sent out from the hospital as outpatient Follow-up with PCP as outpatient within 2 weeks In case of emergency call 911 and come back to the ED Patient was seen and discussed with attending physician, Dr. Amarjit Hawkins MD, PGY 2 Time Spent with Patient Time attestation: Total time spent providing and/or coordinating discharge services: Exam Vital Signs Temp Pulse Resp BP Pulse Ox O2 Del Method 97.3 F 80 18 142/101 H 100 Room Air 08/17/24 07:53 08/17/24 08:18 08/17/24 07:53 08/17/24 07:53 08/17/24 07:53 08/17/24 07:53 Narrative Exam General: Obese female, no acute distress, Alert and Oriented x 3 HEENT: Moist mucous membranes, oropharynx clear Neck: Supple, No masses, No JVD CVS: S1S2 Regular rate and rhythm, No murmurs, rubs or gallops Lungs: Clear to auscultation with no accessory use, no wheeze no rhonchi Abd: Soft, NT/ND, +BS, no organomegaly Ext: No edema, warm and well perfused Skin: No rash Psych: Appropriate mood and affect Discharge Plan Plan Patient Disposition: HOME (Self Care) Patient condition on transfer: Stable Care Plan Goals: Take all home medication as prescribed Take buspirone 10 mg twice daily for anxiety Take metoclopramide 10 mg every 6 hourly as needed for nausea and vomiting as needed Follow-up with your C-peptide levels sent out from the hospital as outpatient Follow-up with PCP as outpatient within 2 weeks In case of emergency call 911 and come back to the ED Prescriptions/Referrals Prescriptions/Med Rec: New buspirone 10 mg tablet 10 mg PO BID 60 Days Qty: 120 0RF pantoprazole [Protonix] 40 mg tablet,delayed release (DR/EC) 40 mg PO QDAY Qty: 14 0RF metoclopramide HCl [Reglan] 10 mg tablet 10 mg PO Q6H PRN (Reason: nausea and vomiting) Qty: 14 0RF Continued insulin glargine [Lantus U-100 Insulin] 100 unit/mL solution 15 unit SCi BID metformin 1,000 mg tablet extended release 24 hr 1,000 mg PO BID Qty: 60 0RF (DME) blood-glucose meter Kit See Rx Instructions .Route Qty: 1 0RF Rx Instructions: As directed (DME) pen needle, diabetic [Comfort EZ Pen [place]] 31 gauge x 5/16 needle See Rx Instructions .Route Qty: 100 0RF Rx Instructions: As directed (DME) lancet-gluc test strip-needles Combo Pack See Rx Instructions .Route Qty: 300 0RF Rx Instructions: As directed atorvastatin 80 mg tablet 80 mg PO QDAY Patient Comments: TAKE 1 TABLET BY MOUTH EVERY DAY cetirizine 10 mg tablet 10 mg PO QDAY Patient Comments: TAKE 1 TABLET BY MOUTH EVERY DAY FOR 90 DAYS triamcinolone acetonide 0.1 % cream 1 applic TOPICAL BID Patient Comments: 1 APPLICATION EXTERNALLY TWICE A DAY 30 DAYS amlodipine 10 mg tablet 10 mg PO QDAY Patient Comments: TAKE 1 TABLET BY MOUTH EVERY DAY lisinopril-hydrochlorothiazide 20-25 mg tablet 1 tab PO QDAY Patient Comments: TAKE 1 TABLET BY MOUTH EVERY DAY FOR 90 DAYS capsaicin 0.025 % Cream 1 applic top TID 30 Days Qty: 50 0RF dicyclomine 10 mg Capsule 10 mg PO TID 30 Days Qty: 90 0RF (DME) insulin syringe-needle U-100 [BD Insulin Syringe Ultra-Fine] 0.5 mL 30 gauge x 1/2 syringe See Rx Instructions .Route Qty: 100 2RF Rx Instructions: once a day Discontinued pantoprazole 40 mg Tablet,Delayed Release (Dr/Ec) 40 mg PO BID 30 Days Qty: 60 0RF Referrals: Leslie Juares PA-C [Primary Care Provider] - Patient/Caregiver Discharge Instructions Education Materials: Long-Term Complications of Diabetes, Diabetic Ketoacidosis, Healthy Cooking Tips for People with Diabetes Print Language: Egyptian Stand Alone Forms: Jonna Award Info., Patient Portal Info Letter Discharge Order Discharge Orders: Discharge (Routine); Ordered 08/17/24 Ordered By: Ct Melendez Quality Discharge Quality Measures VTE prophylaxis
--- NOTE | 2024-08-17 11:06 | PC.NURSE ---
Patient refused Miralax and Senna this morning, unable to document on NOV.
--- NOTE | 2024-08-17 11:48 | PC.NURSE ---
discharge needs met, patient left with family with all belongings, in stable condition.
== END 2024-08-17 11:48 | disposition home or self-care (01) | DRG 420 ==
LOC: SERX 08-15 02:16 → SERHOLD 08-15 02:35 → S3SX 08-15 12:14
PROVIDERS: Internal Medicine; Student in an Organized Health Care Education/Training Program; Admitting Provider Internal Medicine; Emergency Provider Emergency Medicine; PCP Physician Assistant; Visit Provider Student in an Organized Health Care Education/Training Program
DX: E11.10 Type 2 diabetes mellitus with ketoacidosis without coma (principal); F41.9 Anxiety disorder, unspecified; Z91.148 Patient's other noncompliance with medication regimen for other reason; Z79.4 Long term (current) use of insulin; I10 Essential (primary) hypertension; F17.200 Nicotine dependence, unspecified, uncomplicated; E86.0 Dehydration; N17.9 Acute kidney failure, unspecified; E83.52 Hypercalcemia; Z79.84 Long term (current) use of oral hypoglycemic drugs; E87.6 Hypokalemia; D64.9 Anemia, unspecified; D72.829 Elevated white blood cell count, unspecified; K21.9 Gastro-esophageal reflux disease without esophagitis; K74.60 Unspecified cirrhosis of liver; R00.0 Tachycardia, unspecified; E78.5 Hyperlipidemia, unspecified; Z90.49 Acquired absence of other specified parts of digestive tract
CPT/HCPCS: 36415; 36600; 80053; 80069; 80307; 81001; 82010; 82803; 83036; 83605; 83690; 83735; 84100; 84132; 84681; 84703; 85025; 93005; 96361; 96365; 96366; 96372; 96375; 99291; J1815; J2405; J2470; J2765; J3475; J3480; J3490; J7030; J7120; J7121; Q0162; A9270; J1920

== ENCOUNTER 2024-08-23 04:56 | Emergency (ER) | payer MEDICAID, SELFPAY ==
[2024-08-23 04:57] VITALS: BMI 42.0
[2024-08-23 05:25] VITALS: BP 154/103; PULSE 130; RESP 19; TEMP 36.9; O2SAT 100
--- NOTE | 2024-08-23 05:35 | EDRME_ITS ---
Rapid Medical Screening Exam [facility] Arrival date/time: 08/23/24 04:56 33F with history of DM w/ recent DKA admit/discharge and marijuana use presents to ED with intractable N/V and GERD symptoms. Chief Complaint: Nausea/Vomiting/Diarrhea Vital signs: Vital Signs Temperature 98.4 F 08/23/24 05:25 Pulse Rate 130 H 08/23/24 05:25 Respiratory Rate 19 08/23/24 05:25 Blood Pressure 154/103 H 08/23/24 05:25 Pulse Oximetry (%) 100 08/23/24 05:25 Oxygen Delivery Method Room Air 08/23/24 05:25
[2024-08-23 06:01] LABS: Base Excess, Venous 1 (-3-3); Lactate (Lactic Acid) 1.8 mMol/L (0.4-2.0); O2 Saturation, Venous 25 % (96-97); PCO2, Venous 54 mmHg (36-56); PO2, Venous 20 mmHg (15-58); pH, Venous 7.33 (7.33-7.66)
[2024-08-23 06:07] LABS: Basophils # (Auto) 0.1 Thou/mm3 (0.0-0.2); Basophils % (Auto) 1 % (0-2.5); Eosinophils % (Auto) 0 % (0-10); Hematocrit 40.6 % (36.0-46.0); Hemoglobin 13.8 g/dL (12.0-16.0); Immature Granulocytes % (Auto) 0 % (0-0); Immature Granulocytes Auto 0.05 Thou/mm3 (0.00-0.00); Lymphocytes # (Auto) 1.8 Thou/mm3 (1.0-4.8); Lymphocytes % (Auto) 14 % (10-50); Mean Corpuscular Hemoglobin 30.6 pg (25.0-35.0); Mean Corpuscular Volume 90 fL (80-100); Monocytes # (Auto) 0.5 Thou/mm3 (0.0-0.8); Monocytes % (Auto) 4 % (0-12); Neutrophils # (Auto) 10.2 Thou/mm3 (1.8-7.7); Neutrophils % (Auto) 81 % (37-80); Nucleated Red Blood Cell % 0 /100 WBC (0); Platelet Count 343 Thou/mm3 (140-440); RDW Standard Deviation 41.3 fL (36.4-46.3); Red Blood Count 4.51 Miln/mm3 (4.00-5.20); White Blood Count 12.6 Thou/mm3 (3.6-11.0)
[2024-08-23] MEDS: LIDOCAINE VISCOUS 2% 15 ML UDC PO (06:07)
[2024-08-23] MEDS: PROMETHAZINE HCL 25 MG TABLET PO (06:07)
[2024-08-23 06:19] LABS: Beta Hydroxybutyrate 0.3 mmol/L (<0.6)
--- NOTE | 2024-08-23 06:25 | XR_ITS ---
Examination: CT abdomen with intravenous contrast CT pelvis with intravenous contrast 2-D coronal reconstructions 2-D sagittal reconstructions Date and time of exam:August 23, 2024 0829 hours Comparison July 23, 2024 INDICATIONS: Generalized abdominal pain today, history cholecystectomy July 19, 2024. CTDI: vol (mGy) 15.7 DLP: (mGycm) 915 Technique: Multiple axial sections of the abdomen and pelvis have been obtained. 64 slice high-resolution scanner used. 3 mm axial sections have been obtained, post intravenous injection 60 cc [id number] 2-D sagittal, coronal reconstructions obtained. Low dose protocols were performed. One or more of the following dose reduction techniques were used; automated exposure control, adjustment of the mA and/or KV according to patient size, use of iterative reconstruction technique. Findings: No focal liver or splenic lesions Absent gallbladder No pancreatic or adrenal mass No renal or ureteral calculi, no hydronephrosis Aorta normal size No bowel obstruction Normal appendix No diverticulitis Uterus is not enlarged Involuting left ovarian follicular cyst, 16 mm with surrounding mild free fluid Urinary bladder intact Osseous structures intact IMPRESSION: Absent gallbladder No extrahepatic biliary tract dilatation Normal appendix 16mm involuting left ovarian follicular cyst with surrounding mild free fluid, consider pelvic sonography follow-up
[2024-08-23 06:26] LABS: Alanine Aminotransferase 23 U/L (10-49); Albumin, Serum 5.4 gm/dL (3.5-5.0); Albumin/Globulin Ratio 1.8 (1.2-2.2); Alkaline Phosphatase 108 U/L (46-116); Anion Gap 8 (7-16); Aspartate Amino Transferase 17 U/L (0-34); BUN/Creatinine Ratio 18 Ratio (12-20); Bilirubin,Total 0.4 mg/dL (0.3-1.2); Blood Urea Nitrogen 14 mg/dL (9-23); Calcium 10.1 mg/dL (8.3-10.6); Calcium (Corrected) 10.1 mg/dL (8.5-10.1); Carbon Dioxide 27.8 mMol/L (20.0-31.0); Chloride 99 mMol/L (98-107); Creatinine (Component) 0.8 mg/dL (0.6-1.3); Estimated Creatinine Clearance 115.5 mL/min (>60); Glucose 175 mg/dL (74-106); Lipase 62 U/L (12-53); Osmolality,Calculated 274 (275-295); Potassium 3.6 mMol/L (3.4-5.1); Sodium 135 mMol/L (136-145); Total Protein 8.4 gm/dL (5.7-8.2); eGFR > 60 See Note
--- NOTE | 2024-08-23 06:33 | EDNOTE_ITS ---
Nausea/Vomit./Diarrhea-RME/HPI General Chief complaint: Nausea/Vomiting/Diarrhea Stated complaint: N/V/D HX DKA Time Seen by Provider: 08/23/24 06:23 Arrival date/time: 08/23/24 04:56 RME / HPI RME / HPI Narrative: 08/23/24 04:56 33F with history of DM w/ recent DKA admit/discharge and marijuana use presents to ED with intractable N/V and GERD symptoms. This section includes all my notes and documentations, including HPI, PE, MDM, Procedure Notes, and PLAN. Adrián Cota MD HPI: 33 year old female with history of insulin-dependant type 2 diabetes, hypertension, s/p lap cholecystectomy 07/18/[address] Woo, and recent admission 08/15-08/17/2024 for DKA presents to the ED for nausea and vomiting today. States since being discharged from this facility 6 days ago she reports some nausea. However, noted in the last day the nausea is constant and accompanied by vomiting. Denies fevers, chills, chest pain, cough, shortness of breath, diarrhea, constipation, or urinary symptoms. No other complaints. ROS: Gastrointestinal: negative except as documented in HPI. Genitourinary: negative except as documented in HPI. Musculoskeletal: negative except as documented in HPI. Skin: negative except as documented in HPI. Neurological: negative except as documented in HPI. Physical Exam: General: Alert and oriented. Appears uncomfortable. Eyes: Conjunctivae and lids clear. ENT: No nasal congestion. Neck: Supple. Heart: RRR. Lungs: No respiratory distress. Good air movement. No rhonchi, wheezing, rales. Abdomen: Soft. Epigastric tenderness to palpation. Normal bowel sounds. No distension. No rebound or guarding. Back: No CVA tenderness. Legs: No clubbing, cyanosis, edema. Skin: Warm and dry. Neuro: Alert and oriented X 3. I reviewed all diagnostic test results. My review of the abdominal CT report is no acute findings. Blood tests and urine tests are unremarkable. Treatment here included IV fluid and Zofran and Toradol and morphine. Significant improvement noted subjectively and objectively. Recommended more outpatient workup. Based on my best medical judgment, made decision no further evaluation or treatment indicated at this time. Patient understands and agrees to the discharge instructions customized and printed, see below. Discharge Instructions from Dr. Cota printed for you: 1. After extensive evaluation, there is no complication from your recent g allbladder surgery and you are not in DKA. 2. Your symptoms can be common after gallbladder removal. 3. Clear liquid diet for 24 hours then advance slowly as tolerated. For good hydration, increase oral fluid and maintain clear urine. If dark or yellow, increase oral fluid. Zofran and/or Reglan as needed for nausea/vomiting. 4. Tylenol with codeine for severe pain. 5. See a private doctor on 08/25/2024 for recheck. Ask to review all test results and official radiology reports, to make sure you receive all necessary follow-ups and monitoring. To make sure there is no serious intra-abdominal condition, ask for help with more investigation not available here in the ER. Such as EGD or scoping the stomach, colonoscopy or scoping the colon, and referral to see donkey doctor. 6. Seek immediate medical care with worsening or with any concerns. Adrián Cota MD Related Data Home Medications ?Medication ?Instructions ?Recorded ?Confirmed amlodipine 10 mg tablet 10 mg PO QDAY 07/13/24 08/15/24 atorvastatin 80 mg tablet 80 mg PO QDAY 07/13/24 08/15/24 cetirizine 10 mg tablet 10 mg PO QDAY 07/13/24 07/31/24 lisinopril 20 1 tab PO QDAY 07/13/24 07/31/24 mg-hydrochlorothiazide 25 mg tablet triamcinolone acetonide 0.1 % 1 applic topical BID 07/13/24 08/15/24 topical cream insulin glargine 100 unit/mL 15 unit SCi BID 08/15/24 08/15/24 subcutaneous solution (Lantus U-100 Insulin) Previous Rx's ?Medication ?Instructions ?Recorded blood-glucose meter #1 ea 02/03/23 lancet with blood glucose test #300 ea 02/03/23 strips and pen needles combo pack metformin 1,000 mg tablet,extended 1,000 mg PO BID #60 tabs 02/03/23 release 24hr (osmotic) pen needle, diabetic 31 gauge x #100 ea 02/03/2316 (Comfort EZ Pen [place]) insulin syringe-needle U-100 0.5 #100 ea 07/20/24 mL 30 gauge x 1/2 (BD Insulin Syringe Ultra-Fine) buspirone 10 mg tablet 10 mg PO BID 60 days #120 tabs 08/17/24 metoclopramide HCl 10 mg tablet 10 mg PO Q6H PRN nausea and 08/17/24 (Reglan) vomiting #14 tabs pantoprazole 40 mg tablet,delayed 40 mg PO QDAY #14 tabs 08/17/24 release (Protonix) acetaminophen 300 mg-codeine 30 mg 2 tab PO TID PRN pain #20 tabs 08/23/24 tablet metoclopramide HCl 10 mg tablet 10 mg PO Q6H PRN nausea and 08/23/24 (Reglan) vomiting #30 tabs ondansetron 4 mg disintegrating 4 mg PO TID PRN nausea and 08/23/24 tablet vomiting 30 days #30 tabs Allergies Allergy/AdvReac Type Severity Reaction Status Date / Time No Known Allergies Allergy Verified 08/23/24 04:59 Review of Systems Review of Systems Systems Reviewed: All systems reviewed, normal except as documented Past Medical History Past Medical History CARDIAC: Positive Hypertension ENDOCRINE: Positive Endocrine Disorders and Diabetes Mellitus Type 2 PSYCHO/SOCIAL: Positive Recreational Drug Use and Anxiety OTHER HISTORY: Positive Hospitalization Family History FAMILY HISTORY: Negative Family Psychiatric Problems, Family Respiratory Disorders, Family Cardiac Disorders, Family Gastrointestinal Problems, Family Cancer, Family Surgery or Family Anesthesia Reaction Surgical History SURGICAL: Positive Abdominal Surgery Social History SMOKING STATUS: Never smoker SECOND HAND EXPOSURE: No SUBSTANCE USE: does not use ED Exam Narrative Physical exam: As noted in HPI Course Quality Measures none Orders Category Date Time Status CT Screening NOW Care 08/23/24 06:25 Active Saline [Insert IV] NOW Care 08/23/24 06:25 Active Straight [In and Out Catheter] X1 Care 08/23/24 06:[address] abdomen pelvis w con Stat Exams 08/23/24 06:25 Completed Amylase Stat Lab 08/23/24 05:55 Completed Beta Hydroxybutyrate Stat Lab 08/23/24 05:55 Completed CBC Stat Lab 08/23/24 05:55 Completed CMP [Comprehensive Metabolic Panel] Stat Lab 08/23/24 05:55 Completed Drug Screen,Urine Stat Lab 08/23/24 06:20 Completed HCG,Qualitative Serum Stat Lab 08/23/24 05:55 Completed Lactate (Lactic Acid) Stat Lab 08/23/24 05:55 Completed Lipase Stat Lab 08/23/24 05:55 Completed UA [Urinalysis] Stat Lab 08/23/24 06:20 Completed VBG [Venous Blood Gas] Stat Lab 08/23/24 05:55 Completed Ketorolac Inj [Toradol Inj] Med 08/23/24 06:24 Discontinued 30 mg IVP X1 ONE Lidocaine 2% Viscous [Xylocaine 2% Viscous] Med 08/23/24 05:35 Discontinued 15 ml PO X1 ONE Morphine Inj Med 08/23/24 06:24 Discontinued 6 mg IVP X1 ONE Ondansetron Inj [Zofran Inj] Med 08/23/24 06:24 Discontinued 4 mg IV X1 ONE Promethazine HCl [Phenergan] Med 08/23/24 05:35 Discontinued 25 mg PO X1 ONE Sodium Chloride 0.9% 1000 ml [Ns] 1,000 ml Med 08/23/24 06:24 Discontinued IV 999 mls/hr Vital Signs Vital signs: Vital Signs Temperature 98.4 F 08/23/24 05:25 Pulse Rate 130 H 08/23/24 05:25 Respiratory Rate 19 08/23/24 05:25 Blood Pressure 154/103 H 08/23/24 05:25 Pulse Oximetry (%) 100 08/23/24 05:25 Oxygen Delivery Method Room Air 08/23/24 05:25 Pulse ox is 100% on room air which is adequate. Nausea/Vomiting/Diarrhea MDM Narrative MDM Narrative:: IBarbara am scribing for and in the presence of Dr. Cota. Patient data External records reviewed:: [facility] previous records (I reviewed admission from 08/15-08/17/2024 for DKA ) Clinical information provided by:: patient Social determinants that could affect healthcare access:: substance use (Marijuana ) Patient has the following chronic illnesses:: Insulin-dependant type 2 diabetes, hypertension, s/p lap cholecystectomy 07/19/[address] Woo, and recent admission 08/15-08/17/2024 for DKA How is presenting disease/condition affected by chronic disease/condition?: exacerbated by Evaluation data The following diagnostics were reviewed and interpreted by me:: lab results and radiology exam(s) Lab and/or radiology exams considered but not ordered:: None Interpretation Summary: Normal diagnostic tests Medications / Prescriptions Medications / Prescriptions considered but not ordered:: None Medication administrations:: Medication Administration History Discontinued Medications Sodium Chloride (Ns) 1,000 mls @ 999 mls/hr IV .Q1H1M ONE Stop: 08/23/24 07:24 Last Admin: 08/23/24 07:10 Dose: 999 mls/hr Documented By: MARJORIE Ketorolac Tromethamine (Ketorolac Inj 30 Mg/Ml Vial) 30 mg IVP X1 ONE Stop: 08/23/24 06:25 Last Admin: 08/23/24 07:08 Dose: 30 mg Documented By: MARJORIE Lidocaine HCl (Lidocaine Viscous 2% 15 Ml Udc) 15 ml PO X1 ONE Stop: 08/23/24 05:36 Last Admin: 08/23/24 06:07 Dose: 15 ml Documented By: USHA Morphine Sulfate (Morphine Sulf Inj 10 Mg/Ml Vial) 6 mg IVP X1 ONE Stop: 08/23/24 06:25 Last Admin: 08/23/24 07:09 Dose: 6 mg Documented By: MARJORIE Ondansetron HCl (Ondansetron Inj 2 Mg/Ml Inj 2 Ml) 4 mg IV X1 ONE; Protocol Stop: 08/23/24 06:25 Last Admin: 08/23/24 07:09 Dose: 4 mg Documented By: MARJORIE Promethazine HCl (Promethazine Hcl 25 Mg Tablet) 25 mg PO X1 ONE Stop: 08/23/24 05:36 Last Admin: 08/23/24 06:07 Dose: 25 mg Documented By: USHA See chart Consultations Consultation(s) initiated? (list below): No Diagnosis Nausea Differential Diagnosis: traveler's diarrhea, food poisoning, gastroenteritis, drug-induced nausea and vomiting, dehydration and other (DKA , viral illness, surgical complication) Most likely diagnosis given after review of the tests above:: No surgical complication Admission Indicated Admission indicated?: not indicated Explain why admission is indicated or not indicated:: Admission criteria not met Admission Request Was there a request for admission?: No Disposition Plan Disposition Plan: Discharge Discharge Attestation Discharge Attestation: The patient and all family members were given an opportunity to ask questions and understood the discharge instructions. Discharge instructions specifically effects, indications for sooner follow up or return to the emergency department, and the expected course of current diagnosis. Patient condition: Stable Discharge Plan Plan Patient Disposition: HOME (Self Care) Prescriptions/Referrals Prescriptions/Med Rec: New acetaminophen-codeine 300-30 mg tablet 2 tab PO TID MDD 6 PRN (Reason: pain) Qty: 20 0RF ondansetron 4 mg tablet,disintegrating 4 mg PO TID PRN (Reason: nausea and vomiting) 30 Days Qty: 30 0RF metoclopramide HCl [Reglan] 10 mg tablet 10 mg PO Q6H PRN (Reason: nausea and vomiting) Qty: 30 0RF No Action insulin glargine [Lantus U-100 Insulin] 100 unit/mL solution 15 unit SCi BID buspirone 10 mg tablet 10 mg PO BID 60 Days Qty: 120 0RF pantoprazole [Protonix] 40 mg tablet,delayed release (DR/EC) 40 mg PO QDAY Qty: 14 0RF metoclopramide HCl [Reglan] 10 mg tablet 10 mg PO Q6H PRN (Reason: nausea and vomiting) Qty: 14 0RF metformin 1,000 mg tablet extended release 24 hr 1,000 mg PO BID Qty: 60 0RF (DME) blood-glucose meter Kit See Rx Instructions .Route Qty: 1 0RF Rx Instructions: As directed (DME) pen needle, diabetic [Comfort EZ Pen [place]] 31 gauge x 5/16 needle See Rx Instructions .Route Qty: 100 0RF Rx Instructions: As directed (DME) lancet-gluc test strip-needles Combo Pack See Rx Instructions .Route Qty: 300 0RF Rx Instructions: As directed atorvastatin 80 mg tablet 80 mg PO QDAY Patient Comments: TAKE 1 TABLET BY MOUTH EVERY DAY cetirizine 10 mg tablet 10 mg PO QDAY Patient Comments: TAKE 1 TABLET BY MOUTH EVERY DAY FOR 90 DAYS triamcinolone acetonide 0.1 % cream 1 applic TOPICAL BID Patient Comments: 1 APPLICATION EXTERNALLY TWICE A DAY 30 DAYS amlodipine 10 mg tablet 10 mg PO QDAY Patient Comments: TAKE 1 TABLET BY MOUTH EVERY DAY lisinopril-hydrochlorothiazide 20-25 mg tablet 1 tab PO QDAY Patient Comments: TAKE 1 TABLET BY MOUTH EVERY DAY FOR 90 DAYS (DME) insulin syringe-needle U-100 [BD Insulin Syringe Ultra-Fine] 0.5 mL 30 gauge x 1/2 syringe See Rx Instructions .Route Qty: 100 2RF Rx Instructions: once a day Referrals: Leslie Juares PA-C [Primary Care Provider] - In 1 week Problem List Clinical Impression: Nausea and vomiting Patient/Caregiver Discharge Instructions Discharge Activity: activity as tolerated Education Materials: ED Diet for Vomiting or ..., ED Vomiting (Adult) Additional Instructions: Discharge Instructions from Dr. Cota printed for you: 1. After extensive evaluation, there is no complication from your recent gallbladder surgery and you are not in DKA. 2. Your symptoms can be common after gallbladder removal. 3. Clear liquid diet for 24 hours then advance slowly as tolerated. For good hydration, increase oral fluid and maintain clear urine. If dark or yellow, increase oral fluid. Zofran and/or Reglan as needed for nausea/vomiting. 4. Tylenol with codeine for severe pain. 5. See a private doctor on 08/25/2024 for recheck. Ask to review all test results and official radiology reports, to make sure you receive all necessary follow-ups and monitoring. To make sure there is no serious intra-abdominal condition, ask for help with more investigation not available here in the ER. Such as EGD or scoping the stomach, colonoscopy or scoping the colon, and referral to see donkey doctor. 6. Seek immediate medical care with worsening or with any concerns. Print Language: Turkmen Stand Alone Forms: Jonna Award Info., Patient Portal Info Letter
[2024-08-23 06:51] LABS: Collection Type, Urine Clean Catch
[2024-08-23 06:56] LABS: Amylase 126 U/L (30-118)
--- NOTE | 2024-08-23 06:57 | PC.NURSE ---
Pt had lap emily done 07/18. Here from 08/14 released 08/17 for DKA tx. Pt States nausea that leads to abd pain has been poresent since surg intermittently.
[2024-08-23 07:03] LABS: HCG,Qualitative Serum Negative
[2024-08-23] MEDS: KETOROLAC INJ 30 MG/ML VIAL IVP (07:08)
[2024-08-23 07:09] LABS: Amphetamine/Methamp Scrn,U Negative (Negative); Barbiturate Screen,Urine Negative (Negative); Benzodiazepines Screen,Urine Negative (Negative); Benzoylecgonine Screen, Ur Negative (Negative); Fentanyl Screen,Urine Negative (Negative); Opiate Screen,Urine Negative (Negative); THC Screen,Urine Positive (Negative)
[2024-08-23] MEDS: ONDANSETRON INJ 2 MG/ML INJ 2 ML 4 MG IV (07:09)
[2024-08-23] MEDS: MORPHINE SULF INJ 10 MG/ML VIAL 6 MG IVP (07:09)
[2024-08-23] MEDS: SODIUM CHLORIDE 0.9% 1000 ML 1,000 ML 999 ML IV (07:10)
[2024-08-23 07:53] LABS: Bacteria,Urine 1+; Bilirubin,Urine Negative (Negative); Blood,Urine Negative (Negative); Color,Urine Lt-Yellow (Lt Yel-Yel); Glucose, Urine 1+ (Negative); Ketones,Urine Negative (Negative); Leukocyte Esterase,Urine Positive (Negative); Nitrite,Urine Negative (Negative); Protein,Urine Negative (Neg - Trace); RBC,Urine 37 /hpf (0-3); Squamous Epithelial Cell,Urine 25 /hpf (0-5); Urobilinogen,Urine Negative mg/dL (0.0-1.0); WBC,Urine 21 /hpf (0-5)
[2024-08-23 08:37] LABS: Clarity,Urine Hazy (Clear/Hazy)
[2024-08-23 10:15] VITALS: BP 110/78; PULSE 90; RESP 20; TEMP 37.1; O2SAT 99
--- NOTE | 2024-08-23 10:45 | PC.NURSE ---
1015 SPOKE WITH PATIENT IS TEARFUL AND ANXIOUS. STATES THE DOCTOR JUST SAW HER AND SHE THINKS HE SAID HE WAS DISCHARGING HER. ENCOURAGED PATIENT TO TALK. SHE VOICED THAT SHE TAKES CARE OF HER FATHER IN LAW AND AND THAT SHE HAS HAD PROBLEMS WITH PERSISTANT N/V AND ABD AFTER LAP YUSUF. PATIENT GIVEN TLC AND COMFORTED.
== END 2024-08-23 10:45 | disposition home or self-care (01) ==
PROVIDERS: Physician Assistant; Emergency Provider Emergency Medicine; PCP Physician Assistant
DX: R11.2 Nausea with vomiting, unspecified (principal); R10.84 Generalized abdominal pain
CPT/HCPCS: 36415; 74177; 80053; 80307; 81001; 82010; 82150; 82803; 83605; 83690; 84703; 85025; 96361; 96374; 96375; 99285; A4649; J1885; J2270; J2405; J3490; J7030; Q9967; A9270

== ENCOUNTER 2025-03-09 10:53 | Emergency (ER) | payer MEDICAID, SELFPAY ==
[2025-03-09] VITALS (11 sets, daily range): BP systolic 109–179; BP diastolic 73–124; PULSE 93–128; RESP 13–19; TEMP 36.9–37.4; O2SAT 94–100; BMI 40.5
--- NOTE | 2025-03-09 11:06 | XR_ITS ---
Examination: CT abdomen and pelvis without contrast. Coronal 3-D reconstructions. Sagittal 2-D reconstructions. Date and time of exam:March 09, 2025 1329 hours Comparison August 23, 2024 INDICATIONS: Generalized abdominal pain and difficulty urinating beginning 3 days ago CTDI: vol (mGy): 16.6 DLP: (mGycm): 1059 Technique: Axial images of the abdomen have been obtained, 3 mm slice thickness Intravenous contrast material has not been administered. Low dose protocols were performed. One or more of the following dose reduction techniques were used; automated exposure control, adjustment of the mA and/or KV according to patient size, use of iterative reconstruction technique. Findings: No focal liver or splenic lesions Absent gallbladder No pancreatic or adrenal mass No renal or ureteral calculi, no hydronephrosis Normal appendix 8mm fat-containing umbilical hernia No bowel obstruction No diverticulitis Anteverted uterus No adnexal mass Urinary bladder intact Osseous structures intact IMPRESSION: No acute process in the abdomen or pelvis
--- NOTE | 2025-03-09 11:07 | PD.EDRME ---
Rapid Medical Screening Exam RME Arrival date/time: 03/09/25 10:53 34-year-old female with a history of hypertension, hyperlipidemia, type 2 diabetes, cholecystectomy, presents to the emergency room with a chief complaint of 10 out of 10 epigastric and right lower quadrant abdominal tenderness, vomiting, diarrhea I have greeted and performed a focused initial assessment of this patient. A comprehensive ED assessment and evaluation of the patient, analysis of all test results, and completion of the medical decision making process will be conducted by additional ED providers. Chief Complaint: Urogenital-Female Time Seen by Provider: 03/09/25 11:01 Vital signs: Vital Signs Temperature 99.4 F 03/09/25 11:00 Pulse Rate 128 H 03/09/25 11:00 Respiratory Rate 18 03/09/25 11:00 Blood Pressure 179/124 H 03/09/25 11:00 Pulse Oximetry (%) 99 03/09/25 11:00 Oxygen Delivery Method Room Air 03/09/25 11:00 Vital signs reviewed by provider: Yes
[2025-03-09] MEDS: HYDROcodone/APAP 5/325 TABLET 1 TAB PO (11:27)
[2025-03-09] MEDS: MG HYD/AL HYD/SIME (Maalox Reg) SUSP 30 ML UDC PO (11:28)
[2025-03-09] MEDS: ONDANSETRON ODT 4 MG TABRAP PO (11:28)
[2025-03-09 11:34] LABS: Basophils # (Auto) 0.1 Thou/mm3 (0.0-0.2); Basophils % (Auto) 0 % (0-2.5); Eosinophils % (Auto) 0 % (0-10); Hematocrit 37.5 % (36.0-46.0); Hemoglobin 13.6 g/dL (12.0-16.0); Immature Granulocytes % (Auto) 0 % (0-0); Immature Granulocytes Auto 0.05 Thou/mm3 (0.00-0.00); Lymphocytes # (Auto) 3.3 Thou/mm3 (1.0-4.8); Lymphocytes % (Auto) 18 % (10-50); Mean Corpuscular HGB Conc 36.3 g/dl (31.0-37.0); Mean Corpuscular Hemoglobin 30.4 pg (25.0-35.0); Mean Corpuscular Volume 84 fL (80-100); Monocytes # (Auto) 0.8 Thou/mm3 (0.0-0.8); Monocytes % (Auto) 5 % (0-12); Neutrophils # (Auto) 13.7 Thou/mm3 (1.8-7.7); Neutrophils % (Auto) 76 % (37-80); Nucleated Red Blood Cell % 0 /100 WBC (0); Platelet Count 327 Thou/mm3 (140-440); Red Blood Count 4.48 Miln/mm3 (4.00-5.20); White Blood Count 17.9 Thou/mm3 (3.6-11.0)
[2025-03-09 11:50] LABS: Alanine Aminotransferase 27 U/L (10-49); Albumin, Serum 4.7 gm/dL (3.5-5.0); Albumin/Globulin Ratio 1.5 (1.2-2.2); Alkaline Phosphatase 129 U/L (46-116); Anion Gap 11 (7-16); Aspartate Amino Transferase 25 U/L (0-34); BUN/Creatinine Ratio 11 Ratio (12-20); Bilirubin,Total 1.9 mg/dL (0.3-1.2); Blood Urea Nitrogen 11 mg/dL (9-23); Calcium 9.1 mg/dL (8.3-10.6); Calcium (Corrected) 9.1 mg/dL (8.5-10.1); Carbon Dioxide 34.1 mMol/L (20.0-31.0); Chloride 88 mMol/L (98-107); Estimated Creatinine Clearance 89.6 mL/min (>60); Globulin 3.1 gm/dL (2.3-3.5); Glucose 190 mg/dL (74-106); Lipase 27 U/L (12-53); Osmolality,Calculated 270 (275-295); Sodium 133 mMol/L (136-145); Total Protein 7.8 gm/dL (5.7-8.2); eGFR > 60 See Note
[2025-03-09 12:10] LABS: Collection Type, Urine Clean Catch
[2025-03-09 12:41] LABS: HCG Qualitative,Urine Negative
[2025-03-09 12:43] LABS: Bacteria,Urine Rare; Bilirubin,Urine Negative (Negative); Blood,Urine Negative (Negative); Clarity,Urine Clear (Clear/Hazy); Color,Urine Lt-Yellow (Lt Yel-Yel); Glucose, Urine 1+ (Negative); Ketones,Urine 1+ (Negative); Leukocyte Esterase,Urine Negative (Negative); Nitrite,Urine Negative (Negative); Protein,Urine Negative (Neg - Trace); RBC,Urine 3 /hpf (0-3); Specific Gravity,Urine 1.007 (1.001-1.035); Squamous Epithelial Cell,Urine 6 /hpf (0-5); Urobilinogen,Urine Negative mg/dL (0.0-1.0); WBC,Urine 2 /hpf (0-5)
[2025-03-09] MEDS: fentaNYL CIT INJ 50 mCg/ML AMP 2ML IVP (12:48)
[2025-03-09] MEDS: RINGERS LACTATED 1000 ML 1,000 ML 999 ML IV (12:48)
[2025-03-09] MEDS: DiphenhydrAMINE INJ 50 MG/ML VIAL 25 MG IVP (12:49)
[2025-03-09] MEDS: METOCLOPRAMIDE INJ 5 MG/ML VIAL 2 ML IVP (12:58)
--- NOTE | 2025-03-09 15:30 | EDNOTE_ITS ---
ED Abdominal Pain RME/HPI General Chief Complaint: Urogenital-Female Stated complaint: Back pain, abd.pain, unable to urinate Time seen by provider: 03/09/25 11:01 Arrival date/time: 03/09/25 10:53 Limitations: no limitations RME / HPI RME / HPI narrative: 03/09/25 10:53 34-year-old female with a history of hypertension, hyperlipidemia, type 2 diabetes, cholecystectomy, presents to the emergency room with a chief complaint of 10 out of 10 epigastric and right lower quadrant abdominal tenderness, vomiting, diarrhea I have greeted and performed a focused initial assessment of this patient. A comprehensive ED assessment and evaluation of the patient, analysis of all test results, and completion of the medical decision making process will be conducted by additional ED providers. DR. MACIAS MAIN ED EVALUATION: 34 year old female with history of hypertension, diabetes, anxiety presents to the ED for evaluation of abdominal pain beginning 2 days ago. Reports the pain is diffuse and described as aching in sensation, rating as severe. Accompanied by nausea and nonbloody vomiting. Denies fevers, chills, sweats, chest pain, cough, shortness of breath, diarrhea, constipation, or urinary symptoms. No known modifying factors at home. Related Data Home Medications ?Medication ?Instructions ?Recorded ?Confirmed amlodipine 10 mg tablet 10 mg PO QDAY 07/13/2408/15 atorvastatin 80 mg tablet 80 mg PO QDAY 07/13/2408/15 cetirizine 10 mg tablet 10 mg PO QDAY 07/13/2407/31 lisinopril 20 1 tab PO QDAY 07/13/2407/31 mg-hydrochlorothiazide 25 mg tablet triamcinolone acetonide 0.1 % 1 applic topical BID 08/15/24 topical cream insulin glargine 100 unit/mL 15 unit SCi BID 08/15/24 08/15/24 subcutaneous solution (Lantus U-100 Insulin) Previous Rx's ?Medication ?Instructions ?Recorded blood-glucose meter #1 ea 02/03/23 lancet with blood glucose test #300 ea 02/03/23 strips and pen needles combo pack metformin 1,000 mg tablet,extended 1,000 mg PO BID #60 tabs 02/03/23 release 24hr (osmotic) pen needle, diabetic 31 gauge x #100 ea 02/03/23 5/16 (Comfort EZ Pen Oliver) insulin syringe-needle U-100 0.5 #100 ea 07/20/24 mL 30 gauge x 1/2 (BD Insulin Syringe Ultra-Fine) metoclopramide HCl 10 mg tablet 10 mg PO Q6H PRN nause a and 08/17/24 (Reglan) vomiting #14 tabs pantoprazole 40 mg tablet,delayed 40 mg PO QDAY #14 ta bs 08/17/24 release (Protonix) acetaminophen 300 mg-codeine 30 mg 2 tab PO TID PRN pa in #20 tabs 08/23/24 tablet metoclopramide HCl 10 mg tablet 10 mg PO Q6H PRN nause a and 08/23/24 (Reglan) vomiting #30 tabs capsaicin 0.1 % topical cream 1 applic topical TID #60 grams 03/09/25 diphenhydramine HCl 25 mg capsule 25 mg PO TID #30 cap s 03/09/25 (Benadryl) metoclopramide HCl 10 mg tablet 10 mg PO Q8H nausea an d vomiting 03/09/25 (Reglan) #30 tabs Allergies Allergy/AdvReac Type Severity Reaction Status Date / Time No Known Allergies Allergy Verified 03/09/25 10:57 Review of Systems Review of Systems Systems Reviewed: All systems reviewed, normal except as documented Past Medical History Past Medical History CARDIAC: Positive Hypertension ENDOCRINE: Positive Endocrine Disorders and Diabetes Mellitus Type 2 PSYCHO/SOCIAL: Positive Recreational Drug Use and Anxiety OTHER HISTORY: Positive Hospitalization Family History FAMILY HISTORY: Negative Family Psychiatric Problems, Family Respiratory Disorders, Family Cardiac Disorders, Family Gastrointestinal Problems, Family Cancer, Family Surgery or Family Anesthesia Reaction Surgical History SURGICAL: Positive Abdominal Surgery Social History SMOKING STATUS: Current every day smoker SECOND HAND EXPOSURE: No SUBSTANCE USE: does not use ED Exam General Limitations: Present no limitations General appearance: Present alert and in no apparent distress Head Head exam: Present atraumatic, normocephalic and normal inspection Eye Eye exam: Present normal appearance, PERRL and EOMI ENT ENT exam: Present normal exam, normal oropharynx and mucous membranes moist Neck Neck exam: Present normal inspection, full ROM and trachea midline Chest Chest inspection: Present normal inspection and symmetric chest wall rise Respiratory Respiratory exam: Present normal lung sounds bilaterally Cardiovascular Cardiovascular exam: Present regular rate, normal rhythm and normal heart sounds Abdominal Exam Abdominal exam: Present soft and normal bowel sounds; Absent tenderness, guarding, rebound or rigidity Extremities Exam Extremities exam: Present normal inspection and full ROM Back Exam Back exam: Present normal inspection and full ROM Neurological Exam Neurological exam: Present alert, oriented X3 and CN II-XII intact Psychiatric Psychiatric exam: Present normal affect and normal mood Skin Skin exam: Present warm, dry, intact and normal color Course Quality Measures none Orders Category Date Time Status CT abdomen pelvis wo con Stat Exams 03/09/25 11:06 Completed CBC Stat Lab 03/09/25 11:19 Completed CMP [Comprehensive Metabolic Panel] Stat Lab 03/09/25 11:19 Completed HCG Qualitative,Urine Stat Lab 03/09/25 11:55 Completed Lipase Stat Lab 03/09/25 11:19 Completed UA [Urinalysis] Stat Lab 03/09/25 11:55 Completed Urine Culture Stat Lab 03/09/25 11:55 Received DiphenhydrAMINE INJ [Benadryl Inj] Med 03/09/25 12:13 Discontinued 25 mg IVP X1 ONE HYDROcodone*/APAP 5/325 [[place] 5/325] Med 03/09/25 11:06 Discontinued 1 tab PO X1 ONE Metoclopramide Inj [Reglan Inj] Med 03/09/25 14:00 Active 5 mg IVP Q8HR Ondansetron Odt [Zofran Odt] Med 03/09/25 11:06 Discontinued 4 mg PO X1 ONE Ringers Lactated 1000 ml [Lactated Ringers] 1,000 ml Med 03/09/25 12:13 Discontinued IV 999 mls/hr fentaNYL INJ [Sublimaze Inj] Med 03/09/25 12:13 Discontinued 50 mcg IVP X1 ONE mg Hyd/Al Hyd/Vania Susp [Maalox Susp] Med 03/09/25 11:06 Discontinued 30 ml PO X1 ONE Vital Signs Vital signs: Vital Signs Temperature 99.4 F 03/09/25 11:00 Pulse Rate 128 H 03/09/25 11:00 Respiratory Rate 18 03/09/25 11:00 Blood Pressure 179/124 H 03/09/25 11:00 Pulse Oximetry (%) 99 03/09/25 11:00 Oxygen Delivery Method Room Air 03/09/25 11:00 Pulse ox is 99% on room air which is adequate. Abdominal Pain MDM MDM Narrative MDM Narrative:: I, Barbara Patel, am scribing for and in the presence of Dr. Macias. Assessment: Generalized aches and pain, most likely viral infection, rule out strep and UTI Plan: Abdominal/pelvis CT, labs, IV fluids, labs, Toradol and Zofran. The patient reports feeling improved, labs are positive for elevated WBC. However, with absent findings in the CT of abdomen pelvis, the elevated WBC is most likely due to hyperemesis syndrome. Patient admits to smoking marijuana. Plan to send patient home with Reglan, Benadryl, and Capsaicin. Patient data External records reviewed:: [facility] previous records (I reviewed ED visit on 08/23/2024 for nausea and vomiting ) Clinical information provided by:: patient Social determinants that could affect healthcare access:: none Patient has the following chronic illnesses:: Hypertension, diabetes, anxiety, previous admission for DKA How is presenting disease/condition affected by chronic disease/condition?: exacerbated by Evaluation data The following diagnostics were reviewed and interpreted by me:: lab results and radiology exam(s) Lab and/or radiology exams considered but not ordered:: None Interpretation Summary: Ordering Physician: Von Mendes Date of Service: 03/09/25 Procedure(s): CT abdomen pelvis wo [facility] Accession Number(s): [id number] cc: Von Mendes; Gloria Navarro-C; Koby Shaw MD~ Examination: CT abdomen and pelvis without contrast. Coronal 3-D reconstructions. Sagittal 2-D reconstructions. Date and time of exam:March 09, 2025 1329 hours Comparison August 23, 2024 INDICATIONS: Generalized abdominal pain and difficulty urinating beginning 3 days ago CTDI: vol (mGy): 16.6 DLP: (mGycm): 1059 Technique: Axial images of the abdomen have been obtained, 3 mm slice thickness Intravenous contrast material has not been administered. Low dose protocols were performed. One or more of the following dose reduction techniques were used; automated exposure control, adjustment of the mA and/or KV according to patient size, use of iterative reconstruction technique. Findings: No focal liver or splenic lesions Absent gallbladder No pancreatic or adrenal mass No renal or ureteral calculi, no hydronephrosis Normal appendix 8mm fat-containing umbilical hernia No bowel obstruction No diverticulitis Anteverted uterus No adnexal mass Urinary bladder intact Osseous structures intact IMPRESSION: No acute process in the abdomen or pelvis Dictated By: Koby Shaw MD Signed By: <Electronically signed by Koby Shaw MD in OV> 03/09/25 8035 Medications / Prescriptions Medications or Prescriptions considered but not ordered:: None Medication administrations:: Medication Administration History Metoclopramide HCl (Metoclopramide Inj 5 Mg/Ml Vial 2 Ml) 5 mg IVP Q8HR ZORAIDA; Protocol Stop: 04/08/25 13:59 Last Admin: 03/09/25 12:58 Dose: 5 mg Documented By: CG Discontinued Medications Hydrocodone Bitart/Acetaminophen (Hydrocodone/Apap 5/325 Tablet) 1 tab PO X1 ONE Stop: 03/09/25 11:07 Last Admin: 03/09/25 11:27 Dose: 1 tab Documented By: CN Al Hydrox/Mg Hydrox/Simethicone (Mg Hyd/Al Hyd/Vania (Maalox Reg) Susp 30 Ml Udc) 30 ml PO X1 ONE Stop: 03/09/25 11:07 Last Admin: 03/09/25 11:28 Dose: 30 ml Documented By: JUANITA Diphenhydramine HCl (Diphenhydramine Inj 50 Mg/Ml Vial) 25 mg IVP X1 ONE Stop: 03/09/25 12:14 Last Admin: 03/09/25 12:49 Dose: 25 mg Documented By: SHIRA Fentanyl Citrate (Fentanyl Cit Inj 50 Mcg/Ml Amp 2ml) 50 mcg IVP X1 ONE Stop: 03/09/25 12:14 Last Admin: 03/09/25 12:48 Dose: 50 mcg Documented By: SHIRA Lactated Ringer's (Lactated Ringers) 1,000 mls @ 999 mls/hr IV .Q1H1M ONE Stop: 03/09/25 13:13 Last Infusion: 03/09/25 13:47 Dose: Infused Documented By: Admin: 03/09/25 12:48 Dose: 999 mls/hr Documented By: SHIRA Ondansetron HCl (Ondansetron Odt 4 Mg Tabrap) 4 mg PO X1 ONE; Protocol Stop: 03/09/25 11:07 Last Admin: 03/09/25 11:28 Dose: 4 mg Documented By: CN See above Consultations Consultation(s) initiated? (list below): No Diagnosis Differential diagnosis abdominal pain: abdominal pain, calculus of kidney, constipation and gastroenteritis Most likely diagnosis given after review of the tests above:: Cannabis abuse with cannabis-induced disorder Admission Indicated Admission indicated?: not indicated Admission Request Was there a request for admission?: No Disposition Plan Disposition Plan: Discharge Discharge Attestation Discharge Attestation: The patient and all family members were given an opportunity to ask questions and understood the discharge instructions. Discharge instructions specifically effects, indications for sooner follow up or return to the emergency department, and the expected course of current diagnosis. Patient condition: Stable Discharge Plan Plan Patient Disposition: HOME (Self Care) Prescriptions/Referrals Prescriptions/Med Rec: New metoclopramide HCl [Reglan] 10 mg tablet 10 mg PO Q8H Qty: 30 0RF diphenhydramine HCl [Benadryl] 25 mg capsule 25 mg PO TID Qty: 30 0RF capsaicin 0.1 % cream 1 applic topical TID Qty: 60 0RF Rx Instructions: do not wash area for at least 30 min after application No Action insulin glargine [Lantus U-100 Insulin] 100 unit/mL solution 15 unit SCi BID pantoprazole [Protonix] 40 mg tablet,delayed release (DR/EC) 40 mg PO QDAY Qty: 14 0RF metoclopramide HCl [Reglan] 10 mg tablet 10 mg PO Q6H PRN (Reason: nausea and vomiting) Qty: 14 0RF acetaminophen-codeine 300-30 mg tablet 2 tab PO TID MDD 6 PRN (Reason: pain) Qty: 20 0RF metoclopramide HCl [Reglan] 10 mg tablet 10 mg PO Q6H PRN (Reason: nausea and vomiting) Qty: 30 0RF metformin 1,000 mg tablet extended release 24 hr 1,000 mg PO BID Qty: 60 0RF (DME) blood-glucose meter Kit See Rx Instructions .Route Qty: 1 0RF Rx Instructions: As directed (DME) pen needle, diabetic [Comfort EZ Pen Oliver] 31 gauge x 5/16 needle See Rx Instructions .Route Qty: 100 0RF Rx Instructions: As directed (DME) lancet-gluc test strip-needles Combo Pack See Rx Instructions .Route Qty: 300 0RF Rx Instructions: As directed atorvastatin 80 mg tablet 80 mg PO QDAY Patient Comments: TAKE 1 TABLET BY MOUTH EVERY DAY cetirizine 10 mg tablet 10 mg PO QDAY Patient Comments: TAKE 1 TABLET BY MOUTH EVERY DAY FOR 90 DAYS triamcinolone acetonide 0.1 % cream 1 applic TOPICAL BID Patient Comments: 1 APPLICATION EXTERNALLY TWICE A DAY 30 DAYS amlodipine 10 mg tablet 10 mg PO QDAY Patient Comments: TAKE 1 TABLET BY MOUTH EVERY DAY lisinopril-hydrochlorothiazide 20-25 mg tablet 1 tab PO QDAY Patient Comments: TAKE 1 TABLET BY MOUTH EVERY DAY FOR 90 DAYS (DME) insulin syringe-needle U-100 [BD Insulin Syringe Ultra-Fine] 0.5 mL 30 gauge x 1/2 syringe See Rx Instructions .Route Qty: 100 2RF Rx Instructions: once a day Referrals: Gloria Navarro FNP-C [Primary Care Provider] - In 1 week Problem List Clinical Impression: Cannabis abuse with cannabis-induced disorder Patient/Caregiver Discharge Instructions Education Materials: Signs of Marijuana Addiction, ED Marijuana Abuse Print Language: Luxembourgish Stand Alone Forms: Jonna Award Info., Patient Portal Info Letter
== END 2025-03-09 16:07 | disposition home or self-care (01) ==
PROVIDERS: Nurse Practitioner Family; Emergency Provider Emergency Medicine; PCP Nurse Practitioner Family
DX: F12.10 Cannabis abuse, uncomplicated (principal); R10.84 Generalized abdominal pain; D72.829 Elevated white blood cell count, unspecified
CPT/HCPCS: 36415; 74176; 80053; 81001; 81025; 83690; 85025; 87086; 96361; 96374; 96375; 99284; J1200; J2765; J3010; J7120; Q0162; A9270

== ENCOUNTER 2025-03-10 11:12 | Emergency (ER) | payer MEDICAID, SELFPAY ==
[2025-03-10 11:13] VITALS: BMI 40.2
[2025-03-10 12:09] VITALS: BP 168/124; PULSE 128; RESP 20; TEMP 37.6; O2SAT 99; BMI 40.2
--- NOTE | 2025-03-10 12:26 | EDRME_ITS ---
Rapid Medical Screening Exam RME Arrival date/time: 03/10/25 11:12 This is a 34-year-old female that was seen here yesterday for the same complaints. Patient has a history of Hypertension, hyperlipidemia, type 2 diabetes, cholecystectomy, presents to the emergency room with a chief complaint of 10 out of 10 epigastric and right lower quadrant abdominal tenderness, vomiting, diarrhea. Patient was diagnosed with marijuana induced nausea vomiting Yesterday. Patient states she went home and did not feel better. Patient states pain has not gone away. I have greeted and performed a focused initial assessment of this patient. Initial appropriate labs ordered at this time. A comprehensive ED assessment an d evaluation of the patient and analysis of all test and completion of medical decision making process will be conducted by additional ED provider. Chief Complaint: Abdominal Pain Time Seen by Provider: 03/10/25 11:39 Vital signs: Vital Signs Temperature 99.7 F 03/10/25 12:09 Pulse Rate 128 H 03/10/25 12:09 Respiratory Rate 20 03/10/25 12:09 Blood Pressure 168/124 H 03/10/25 12:09 Pulse Oximetry (%) 99 03/10/25 12:09 Oxygen Delivery Method Room Air 03/10/25 12:09
[2025-03-10] MEDS: ONDANSETRON ODT 4 MG TABRAP PO (12:34)
[2025-03-10 13:02] LABS: Basophils # (Auto) 0.1 Thou/mm3 (0.0-0.2); Basophils % (Auto) 1 % (0-2.5); Eosinophils % (Auto) 0 % (0-10); Hematocrit 36.9 % (36.0-46.0); Hemoglobin 13.1 g/dL (12.0-16.0); Immature Granulocytes % (Auto) 0 % (0-0); Immature Granulocytes Auto 0.07 Thou/mm3 (0.00-0.00); Lymphocytes # (Auto) 1.6 Thou/mm3 (1.0-4.8); Lymphocytes % (Auto) 10 % (10-50); Mean Corpuscular HGB Conc 35.5 g/dl (31.0-37.0); Mean Corpuscular Hemoglobin 30.3 pg (25.0-35.0); Mean Corpuscular Volume 85 fL (80-100); Monocytes # (Auto) 0.7 Thou/mm3 (0.0-0.8); Monocytes % (Auto) 4 % (0-12); Neutrophils % (Auto) 85 % (37-80); Nucleated Red Blood Cell % 0 /100 WBC (0); Platelet Count 302 Thou/mm3 (140-440); RDW Standard Deviation 40.9 fL (36.4-46.3); Red Blood Count 4.33 Miln/mm3 (4.00-5.20); White Blood Count 16.5 Thou/mm3 (3.6-11.0)
[2025-03-10 13:25] LABS: Alanine Aminotransferase 32 U/L (10-49); Albumin, Serum 4.7 gm/dL (3.5-5.0); Albumin/Globulin Ratio 1.5 (1.2-2.2); Alkaline Phosphatase 127 U/L (46-116); Anion Gap 11 (7-16); Aspartate Amino Transferase 31 U/L (0-34); BUN/Creatinine Ratio 10 Ratio (12-20); Bilirubin,Total 1.8 mg/dL (0.3-1.2); Blood Urea Nitrogen 12 mg/dL (9-23); Calcium 9.3 mg/dL (8.3-10.6); Calcium (Corrected) 9.3 mg/dL (8.5-10.1); Carbon Dioxide 29.6 mMol/L (20.0-31.0); Chloride 92 mMol/L (98-107); Creatinine (Component) 1.2 mg/dL (0.6-1.3); Estimated Creatinine Clearance 74.3 mL/min (>60); Globulin 3.2 gm/dL (2.3-3.5); Glucose 208 mg/dL (74-106); Lipase 33 U/L (12-53); Osmolality,Calculated 272 (275-295); Sodium 133 mMol/L (136-145); Total Protein 7.9 gm/dL (5.7-8.2); eGFR > 60 See Note
[2025-03-10 13:35] LABS: Collection Type, Urine Voided
[2025-03-10 13:35] LABS: Potassium 2.7 mMol/L (3.4-5.1)
[2025-03-10 13:57] LABS: HCG Qualitative,Urine Negative
[2025-03-10 14:02] LABS: Bacteria,Urine Rare; Bilirubin,Urine Negative (Negative); Blood,Urine Negative (Negative); Clarity,Urine Turbid (Clear/Hazy); Color,Urine Yellow (Lt Yel-Yel); Culture Indicated,Urine Contaminated; Glucose, Urine Trace (Negative); Ketones,Urine 2+ (Negative); Leukocyte Esterase,Urine Positive (Negative); Nitrite,Urine Negative (Negative); PH,Urine 5.5 (5.0-7.0); Protein,Urine Trace (Neg - Trace); RBC,Urine 3 /hpf (0-3); Specific Gravity,Urine 1.014 (1.001-1.035); Squamous Epithelial Cell,Urine 53 /hpf (0-5); Urobilinogen,Urine Negative mg/dL (0.0-1.0); WBC,Urine 21 /hpf (0-5)
--- NOTE | 2025-03-10 16:50 | PC.NURSE ---
PT SEEN WALKING OUT OF THE E.D. AMD GETTING IN A CAR AND LEAVING
== END 2025-03-10 16:50 | disposition left against medical advice (07) ==
PROVIDERS: Nurse Practitioner Family; Emergency Provider Emergency Medicine
DX: R10.819 Abdominal tenderness, unspecified site (principal); E78.5 Hyperlipidemia, unspecified; E11.9 Type 2 diabetes mellitus without complications; R19.7 Diarrhea, unspecified; Z53.29 Procedure and treatment not carried out because of patient's decision for other reasons; R11.10 Vomiting, unspecified
CPT/HCPCS: 36415; 80053; 81001; 81025; 83690; 85025; 99281; Q0162

== ENCOUNTER 2025-04-01 04:06 | Emergency (ER) | payer MEDICAID, SELFPAY ==
[2025-04-01 04:07] VITALS: BP 179/149; PULSE 136; RESP 18; TEMP 36.7; O2SAT 97; BMI 42.0
--- NOTE | 2025-04-01 05:05 | PD.EDRME ---
Rapid Medical Screening Exam RME Arrival date/time: 04/01/25 04:06 Chief Complaint: Abdominal Pain Time Seen by Provider: 04/01/25 05:03 Vital signs: Vital Signs Temperature 98.0 F 04/01/25 04:07 Pulse Rate 136 H 04/01/25 04:07 Respiratory Rate 18 04/01/25 04:07 Blood Pressure 179/149 H 04/01/25 04:07 Pulse Oximetry (%) 97 04/01/25 04:07 Oxygen Delivery Method Room Air 04/01/25 04:07 Vital signs reviewed by provider: Yes RME Narrative: 34-year-old female with a past medical history of insulin-dependent diabetes and DKA as well as gallbladder issues presents to the ED with complaint of nausea, vomiting, abdominal pain that has been ongoing but became worse tonight. She states that last night before bed her blood sugar was 358. She gave herself 15 units. Prior to her arrival here she states her blood sugar was 168. I have greeted and performed a focused initial assessment of this patient. A comprehensive ED assessment and evaluation of the patient, analysis of all test results, and completion of the medical decision making process will be conducted by additional ED providers.
--- NOTE | 2025-04-01 05:07 | XR_ITS ---
Examination: AP chest single view TECHNIQUE: AP portable upright chest single view Date and time: April 01, 2025, 0637 hours Comparison July 12, 2024 INDICATIONS: Hyperglycemia with shortness of breath and chest pain today. FINDINGS: Normal heart size. Lungs are clear. The osseous structures are intact. IMPRESSION: No active disease.
--- NOTE | 2025-04-01 05:07 | EKG_ITS ---
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: : 1990 Requested By: Cristine Adams Order Number: [id number] Reading MD: Cristine Adams Measurements Intervals [place] Rate: 118 P: 38 NM: 150 QRS: -85 QRSD: 82 T: 57 QT: 330 QTc: 463 Interpretive Statements SINUS TACHYCARDIA POSSIBLE LEFT ATRIAL ENLARGEMENT [-0.1mV P-WAVE IN V1/V2] LEFT AXIS DEVIATION [QRS AXIS < -30] S1-S2-S3 PATTERN, CONSISTENT WITH PULMONARY DISEASE, RVH, OR NORMAL VARIANT POSSIBLE RIGHT VENTRICULAR CONDUCTION DELAY [RSR (QR) IN V1/V2] POSSIBLE ANTERIOR MYOCARDIAL INFARCTION , OF INDETERMINATE AGE [30 ms Q WAVE IN V3/V4, OR R < 0.2 mV IN V4] Compared to ECG 08/14/2024 23:28:08 Left-axis deviation now present Myocardial infarct finding now present /store/S0/[id number]/ecg/[id number].pdf
--- NOTE | 2025-04-01 05:11 | XR_ITS ---
Examination: Abdomen sonogram, Limited Date and time of exam: April 01, 2025, 0607 hours INDICATIONS: Epigastric pain beginning in July 2024, vomiting beginning 2 days ago. Technique: Real-time araya scale transabdominal sonographic images of the upper abdomen obtained. Findings: Absent gallbladder. Normal common bile duct 0.2 cm Pancreatic head 2.4 cm Liver 14.9 cm fatty infiltration. Normal hepatopedal portal venous flow Patent IVC IMPRESSION: Normal common bile duct
[2025-04-01] MEDS: RINGERS LACTATED 1000 ML 1,000 ML IV (05:34)
[2025-04-01] MEDS: ONDANSETRON INJ 2 MG/ML INJ 2 ML 4 MG IVP ×2 (05:36→05:45)
[2025-04-01 05:39] LABS: Lactate (Lactic Acid) 1.5 mMol/L (0.4-2.0)
[2025-04-01 05:43] LABS: Base Excess 4 (-3-3); HCO3 27 mEq/L (20-26); Inspired Oxygen, FIO2 21 %; O2 Saturation 99 % (91-98); PCO2 37 mmHg (32.0-48.0); PO2 116 mmHg (83-108); pH, Arterial 7.48 (7.35-7.45)
[2025-04-01] MEDS: KETOROLAC INJ 30 MG/ML VIAL IVP (05:46)
[2025-04-01] MEDS: MORPHINE SULF INJ 10 MG/ML VIAL 4 MG IVP (05:46)
[2025-04-01 05:47] LABS: Allen Test Performed/OK; Puncture Site Right Radial
[2025-04-01 05:48] LABS: Basophils # (Auto) 0.1 Thou/mm3 (0.0-0.2); Basophils % (Auto) 1 % (0-2.5); Eosinophils # (Auto) 0.0 Thou/mm3 (0.0-0.5); Eosinophils % (Auto) 0 % (0-10); Hematocrit 40.9 % (36.0-46.0); Hemoglobin 14.7 g/dL (12.0-16.0); Immature Granulocytes Auto 0.04 Thou/mm3 (0.00-0.00); Lymphocytes # (Auto) 2.0 Thou/mm3 (1.0-4.8); Lymphocytes % (Auto) 14 % (10-50); Mean Corpuscular HGB Conc 35.9 g/dl (31.0-37.0); Mean Corpuscular Hemoglobin 31.1 pg (25.0-35.0); Mean Corpuscular Volume 87 fL (80-100); Monocytes # (Auto) 0.6 Thou/mm3 (0.0-0.8); Monocytes % (Auto) 4 % (0-12); Neutrophils # (Auto) 11.3 Thou/mm3 (1.8-7.7); Neutrophils % (Auto) 81 % (37-80); Nucleated Red Blood Cell # 0.00 Thou/mm3 (0.00-0.00); Nucleated Red Blood Cell % 0 /100 WBC (0); Platelet Count 304 Thou/mm3 (140-440); RDW Standard Deviation 42.6 fL (36.4-46.3); Red Blood Count 4.73 Miln/mm3 (4.00-5.20); White Blood Count 14.0 Thou/mm3 (3.6-11.0)
[2025-04-01 06:07] VITALS: BP 144/93; PULSE 100; RESP 17; TEMP 36.7; O2SAT 100
--- NOTE | 2025-04-01 06:15 | PD.EDABDPN ---
ED Abdominal Pain RME/HPI General Chief Complaint: Abdominal Pain Stated complaint: UPPER ABD PAIN, SWEATING, N/V Time seen by provider: 04/01/25 05:03 Arrival date/time: 04/01/25 04:06 Limitations: no limitations RME / HPI RME / HPI narrative: 34-year-old female with a past medical history of insulin-dependent diabetes and DKA as well as gallbladder issues presents to the ED with complaint of nausea, vomiting, abdominal pain that has been ongoing but became worse tonight. She states that last night before bed her blood sugar was 358. She gave herself 15 units. Prior to her arrival here she states her blood sugar was 168. I have greeted and performed a focused initial assessment of this patient. A comprehensive ED assessment and evaluation of the patient, analysis of all test results, and completion of the medical decision making process will be conducted by additional ED providers. DR. NORIS PETERSON ED EVALUATION 34 year old female with history of type II DM, previous admission for DKA, hypertension, biliary dyskenesia s/p cholecystectomy 07/2024 presents to the ED for evaluation of abdominal pain. Described as cramping in sensation that is located most across her upper abdomen, rating as moderate. Accompanied by nausea, multiple episodes of nonbloody vomiting, and heartburn sensation. Reportedly had experienced similar pain 08/2024 when she was admitted for DKA. Patient also reports she has had intermittent abdominal pain since her cholecystectomy 07/2024 and evaluated here multiple times where work-up was unremarkable and advised her symptoms were due to marijuana. States she stopped smoking marijuana last month and feels her symptoms are worsening. Patient later mentioned she also had been evaluated at [facility] in the last month and told there is a mass in my intestine that could be kidney stones . Denies any urinary symptoms. Denies fevers, chills, chest pain, cough, shortness of breath, diarrhea, constipation. Related Data Home Medications ?Medication ?Instructions ?Recorded ?Confirmed amlodipine 10 mg tablet 10 mg PO QDAY 07/13/24 08/15/24 atorvastatin 80 mg tablet 80 mg PO QDAY 07/13/24 08/15/24 cetirizine 10 mg tablet 10 mg PO QDAY 07/13/24 07/31/24 lisinopril 20 1 tab PO QDAY 07/13/24 07/31/24 mg-hydrochlorothiazide 25 mg tablet triamcinolone acetonide 0.1 % 1 applic topical BID 07/13/24 08/15/24 topical cream insulin glargine 100 unit/mL 15 unit SCi BID 08/15/24 08/15/24 subcutaneous solution (Lantus U-100 Insulin) Previous Rx's ?Medication ?Instructions ?Recorded blood-glucose meter #1 ea 02/03/23 lancet with blood glucose test #300 ea 02/03/23 strips and pen needles combo pack metformin 1,000 mg tablet,extended 1,000 mg PO BID #60 tabs 02/03/23 release 24hr (osmotic) pen needle, diabetic 31 gauge x #100 ea 02/03/23 5/16 (Comfort EZ Pen [place]) insulin syringe-needle U-100 0.5 #100 ea 07/20/24 mL 30 gauge x 1/2 (BD Insulin Syringe Ultra-Fine) metoclopramide HCl 10 mg tablet 10 mg PO Q6H PRN nausea and 08/17/24 (Reglan) vomiting #14 tabs pantoprazole 40 mg tablet,delayed 40 mg PO QDAY #14 tabs 08/17/24 release (Protonix) acetaminophen 300 mg-codeine 30 mg 2 tab PO TID PRN pain #20 tabs 08/23/24 tablet metoclopramide HCl 10 mg tablet 10 mg PO Q6H PRN nausea and 08/23/24 (Reglan) vomiting #30 tabs capsaicin 0.1 % topical cream 1 applic topical TID #60 grams 03/09/25 diphenhydramine HCl 25 mg capsule 25 mg PO TID #30 caps 03/09/25 (Benadryl) metoclopramide HCl 10 mg tablet 10 mg PO Q8H nausea and vomiting 03/09/25 (Reglan) #30 tabs aluminum-mag hydroxide-simethicone 10 ml PO QID PRN GERD #3,000 mL 04/01/25 200 mg-200 mg-20 mg/5 mL oral susp (Maalox Advanced) famotidine 20 mg tablet (Pepcid) 20 mg PO BID Gastritis 7 days #14 04/01/25 tabs hydrocodone 5 mg-acetaminophen 325 1 tab PO Q6H PRN pain 4 days #14 04/01/25 mg tablet tabs magnesium oxide 800 mg (2 x 400 mg magnesium) PO 04/01/25 QDAY Hypomagnesemia 5 days #10 tabs ondansetron 4 mg disintegrating 4 mg PO Q6H Nausea 4 days #16 tabs 04/01/25 tablet pantoprazole 20 mg tablet,delayed 20 mg PO QDAY Gastritis 10 days 04/01/25 release (Protonix) #10 tabs potassium chloride 20 mEq/15 mL 40 meq (30 mL) PO QDAY Hypokalemia 04/01/25 oral liquid 3 days #90 mL sucralfate 1 gram tablet 1 g PO BID Gastritis 10 days #20 04/01/25 tabs Allergies Allergy/AdvReac Type Severity Reaction Status Date / Time No Known Allergies Allergy Verified 03/10/25 11:15 Review of Systems Review of Systems Systems Reviewed: All systems reviewed, normal except as documented Past Medical History Past Medical History GASTROINTESTINAL: Positive Gall Bladder Disease ENDOCRINE: Positive Endocrine Disorders and Diabetes Mellitus Type 2 PSYCHO/SOCIAL: Positive Recreational Drug Use (THC), Depression and Anxiety OTHER HISTORY: Positive Hospitalization Family History FAMILY HISTORY: Negative Family Psychiatric Problems, Family Respiratory Disorders, Family Cardiac Disorders, Family Gastrointestinal Problems, Family Cancer, Family Surgery or Family Anesthesia Reaction Surgical History SURGICAL: Positive Abdominal Surgery; Negative Cardiac Surgery, Open Heart Surgery, Coronary Artery Bypass Graft, Valve Replacement, Vascular Surgery, Coronary Stent, Cardiac Catheterization, Pacemaker, Angiogram, Auto Implanted Cardiovert Defib, Carotid Endarterectomy, Endocrine Surgery, Thyroidectomy, Ear Surgery, Tympanostomy Tube, Eye Surgery, Nose Surgery, Oral Surgery, Tonsillectomy, Adenoidectomy, Cochlear Implant, Corneal Transplant, Throat Surgery, Tracheostomy, Gastric Bypass Surgery, Gastrostomy, Bowel Surgery, Nephrectomy, Transurethral Resection, Joint Replacement, Amputation, Open Reduction Internal Fixation, Arthroscopy, Neurologic Surgery, Brain Shunt, Mastectomy, Lumpectomy, Hysterectomy, Tubal Ligation, Section or Vasectomy Social History SMOKING STATUS: Never smoker SECOND HAND EXPOSURE: No SUBSTANCE USE: does not use ED Exam General Limitations: Present no limitations General appearance: Present alert and anxious Head Head exam: Present atraumatic Eye Eye exam: Present normal appearance, PERRL and EOMI ENT ENT exam: Present normal exam, normal oropharynx and mucous membranes moist Neck Neck exam: Present normal inspection, full ROM and trachea midline Chest Chest inspection: Present normal inspection and symmetric chest wall rise Respiratory Respiratory exam: Present normal lung sounds bilaterally Cardiovascular Cardiovascular exam: Present normal rhythm, tachycardia and normal heart sounds Abdominal Exam Abdominal exam: Present soft, tenderness (mild to moderate tenderness in epigatric region, no rebound, no guarding ) and normal bowel sounds Extremities Exam Extremities exam: Present normal inspection and full ROM Back Exam Back exam: Present normal inspection and full ROM Neurological Exam Neurological exam: Present alert, oriented X3 and CN II-XII intact Psychiatric Psychiatric exam: Present anxious Skin Skin exam: Present warm, dry, intact and normal color Course Quality Measures none Orders Category Date Time Status Blood glucose [Bedside Blood Glucose] NOW Care 04/01/25 05:09 Completed EKG (ED ONLY) *Do not use* NOW Care 04/01/25 05:07 Completed Insert IV STAT Care 04/01/25 05:07 Completed Intake and Output Routine Care 04/01/25 05:07 Ordered NPO NOW Care 04/01/25 05:07 Completed EKG (ED Only) Stat Exams 04/01/25 05:07 Draft EKG (ED Only) Stat Exams 04/01/25 05:46 Ordered US abdomen limited Stat Exams 04/01/25 05:11 Completed XR chest 2V Stat Exams 04/01/25 05:07 Completed Arterial Blood Gas Stat Lab 04/01/25 05:30 Completed Beta Hydroxybutyrate Stat Lab 04/01/25 05:30 Completed Blood Culture (Lab) Stat Lab 04/01/25 05:35 Results CBC Stat Lab 04/01/25 05:30 Completed Comprehensive Metabolic Panel Stat Lab 04/01/25 05:30 Completed Drug Screen,Urine Stat Lab 04/01/25 06:50 Completed Glycohemoglobin w (eAG) Stat Lab 04/01/25 05:30 Completed HCG Qualitative,Urine Stat Lab 04/01/25 06:50 Completed Lactate (Lactic Acid) Stat Lab 04/01/25 05:30 Completed Lipase Stat Lab 04/01/25 05:30 Completed Magnesium Stat Lab 04/01/25 05:30 Completed Phosphorous Stat Lab 04/01/25 05:30 Completed Urinalysis, C/S if Indicated Stat Lab 04/01/25 06:50 Completed Dextrose 5%-Lactated Ringers [D5-Lr] 1,000 ml Med 04/01/25 05:06 Discontinued IV 250 mls/hr Dextrose 50% Syr [D50w Syringe Abboject] Med 04/01/25 05:06 Discontinued 25 ml IV PRNMRX1 PRN Famotidine Inj [Pepcid Inj] Med 04/01/25 06:46 Discontinued 20 mg IVP X1 ONE HYDROmorphone INJ [Dilaudid Inj] Med 04/01/25 07:00 Discontinued 0.5 mg IVP Q30M PRN HYDROmorphone INJ [Dilaudid Inj] Med 04/01/25 05:42 Discontinued 1 mg IVP X1 ONE Ketorolac Inj [Toradol Inj] Med 04/01/25 05:38 Discontinued 30 mg IVP X1 ONE Magnesium Sulfate 2 GM Ivpb [Magnesium Sulfate Ivpb] Med 04/01/25 06:45 Discontinued 2 gm in 50 ml IV X1 Morphine Inj Med 04/01/25 05:38 Discontinued 4 mg IVP X1 ONE Ondansetron Inj [Zofran Inj] Med 04/01/25 05:10 Discontinued 4 mg IVP X1 ONE POTASSIUM CHL 10 mEq IVPB [Kcl Ivpb] Med 04/01/25 06:46 Discontinued 10 meq in 100 ml IV Q1H Pantoprazole Inj [Protonix Inj] Med 04/01/25 06:46 Discontinued 80 mg IVP X1 ONE Ringers Lactated 1000 ml [Lactated Ringers] 1,000 ml Med 04/01/25 05:06 Discontinued IV 250 mls/hr Ringers Lactated 1000 ml [Lactated Ringers] 1,000 ml Med 04/01/25 05:15 Discontinued IV Q1H Sodium Chloride 0.9% 1000 ml [Ns] 1,000 ml Med 04/01/25 06:48 Discontinued IV 999 mls/hr mg Hyd/Al Hyd/Vania Susp [Maalox Susp] Med 04/01/25 06:46 Discontinued 30 ml PO X1 ONE Reevaluation(s) Reevaluation #1: We reviewed all the results, analysis, and treatment plans. Patient is amenable to discharge. Strict return precautions were outlined. Patient was discharged in stable condition. Time: 08:07 Vital Signs Vital signs: Vital Signs Temperature 98.0 F 04/01/25 04:07 Pulse Rate 136 H 04/01/25 04:07 Respiratory Rate 18 04/01/25 04:07 Blood Pressure 179/149 H 04/01/25 04:07 Pulse Oximetry (%) 97 04/01/25 04:07 Oxygen Delivery Method Room Air 04/01/25 04:07 Pulse ox is 97% on room air which is adequate. Abdominal Pain MDM MDM Narrative MDM Narrative:: I, Barbara Patel, so scribing for and in the presence of Dr. Nathan. Patient data External records reviewed:: [facility] previous records (I reviewed ED visit on 03/09/2025 ) Clinical information provided by:: patient Social determinants that could affect healthcare access:: substance use (Marijuana ) Patient has the following chronic illnesses:: type II DM, previous admission for DKA, hypertension, s/p cholecystectomy 07/2024 How is presenting disease/condition affected by chronic disease/condition?: exacerbated by Evaluation data The following diagnostics were reviewed and interpreted by me:: lab results, radiology exam(s) and EKG tracing(s) (05:19 AM. Sinus tachycardia, rate 114, left axis deviation, no ectopy, questionable Q-wave in lead II and lead III, no ST changes, no acute ischemia. ) Lab and/or radiology exams considered but not ordered:: None Interpretation Summary: Ordering Physician: Cristine Soto PA-C Date of Service: 04/01/25 Procedure(s): XR chest 2V Accession Number(s): [id number] cc: Koby Shaw MD; Cristine Soto PA-C~ Examination: AP chest single view TECHNIQUE: AP portable upright chest single view Date and time: April 01, 2025, 0637 hours Comparison July 12, 2024 INDICATIONS: Hyperglycemia with shortness of breath and chest pain today. FINDINGS: Normal heart size. Lungs are clear. The osseous structures are intact. IMPRESSION: No active disease. Dictated By: Koby Shaw MD Signed By: <Electronically signed by Koby Shaw MD in OV> 04/01/25 0719 Ordering Physician: Cristine Soto PA-C Date of Service: 04/01/25 Procedure(s): US abdomen limited Accession Number(s): [id number] cc: Koby Shaw MD; Cristine Soto PA-C~ Examination: Abdomen sonogram, Limited Date and time of exam: April 01, 2025, 0607 hours INDICATIONS: Epigastric pain beginning in July 2024, vomiting beginning 2 days ago. Technique: Real-time araya scale transabdominal sonographic images of the upper abdomen obtained. Findings: Absent gallbladder. Normal common bile duct 0.2 cm Pancreatic head 2.4 cm Liver 14.9 cm fatty infiltration. Normal hepatopedal portal venous flow Patent IVC IMPRESSION: Normal common bile duct Dictated By: Koby Shaw MD Signed By: <Electronically signed by Koby Shaw MD in OV> 04/01/25 0710 Medications / Prescriptions Medications or Prescriptions considered but not ordered:: None Medication administrations:: Medication Administration History Discontinued Medications Al Hydrox/Mg Hydrox/Simethicone (Mg Hyd/Al Hyd/Vania (Maalox Reg) Susp 30 Ml Udc) 30 ml PO X1 ONE Stop: 04/01/25 06:47 Last Admin: 04/01/25 07:10 Dose: 30 ml Documented By: EF Dextrose (Dextrose 50%-Water Inj 50 Ml Syringe) 25 ml IV PRNMRX1 PRN PRN Reason: Blood Sugar - Low Famotidine (Famotidine Inj 10 Mg/Ml Vial 2 Ml) 20 mg IVP X1 ONE Stop: 04/01/25 06:47 Last Admin: 04/01/25 07:11 Dose: 20 mg Documented By: EF Hydromorphone HCl (Hydromorphone Inj 2 Mg/Ml Vial) 1 mg IVP X1 ONE Stop: 04/01/25 05:43 Last Admin: 04/01/25 05:48 Dose: Not Given Documented By: Non-Admin Reason: Cancelled by Provider Hydromorphone HCl (Hydromorphone Inj 2 Mg/Ml Vial) 0.5 mg IVP Q30M PRN PRN Reason: PAIN Last Admin: 04/01/25 07:25 Dose: 0.5 mg Documented By: EF Dextrose/Lactated Ringer's (D5-Lr) 1,000 mls @ 250 mls/hr IV .Q4H PRN PRN Reason: PER PROTOCOL Stop: 05/01/25 05:05 Lactated Ringer's (Lactated Ringers) 1,000 mls @ 250 mls/hr IV .Q4H PRN PRN Reason: PER PROTOCOL Stop: 04/02/25 05:05 Lactated Ringer's (Lactated Ringers) 1,000 mls @ 1,000 mls/hr IV Q1H [place] Stop: 04/01/25 07:14 Last Admin: 04/01/25 08:19 Dose: Not Given Documented By: EF Non-Admin Reason: Cancelled by Provider Infusion: 04/01/25 06:34 Dose: Infused Documented By: Admin: 04/01/25 05:34 Dose: 1,000 mls/hr Documented By: RH Magnesium Sulfate (Magnesium Sulfate Ivpb) 2 gm in 50 mls @ 25 mls/hr IV X1 ONE Stop: 04/01/25 08:44 Last Infusion: 04/01/25 11:15 Dose: Infused Documented By: Admin: 04/01/25 09:27 Dose: 25 mls/hr Documented By: EF Potassium Chloride (Kcl Ivpb) 10 meq in 100 mls @ 100 mls/hr IV Q1H [facility] Stop: 04/01/25 08:45 Last Infusion: 04/01/25 09:19 Dose: Infused Documented By: Admin: 04/01/25 08:19 Dose: 100 mls/hr Documented By: Infusion: 04/01/25 08:11 Dose: Infused Documented By: Admin: 04/01/25 07:11 Dose: 100 mls/hr Documented By: EF Sodium Chloride (Ns) 1,000 mls @ 999 mls/hr IV .Q1H1M ONE Stop: 04/01/25 07:48 Last Infusion: 04/01/25 08:12 Dose: Infused Documented By: Admin: 04/01/25 07:11 Dose: 999 mls/hr Documented By: EF Ketorolac Tromethamine (Ketorolac Inj 30 Mg/Ml Vial) 30 mg IVP X1 ONE Stop: 04/01/25 05:39 Last Admin: 04/01/25 05:46 Dose: 30 mg Documented By: RH Morphine Sulfate (Morphine Sulf Inj 10 Mg/Ml Vial) 4 mg IVP X1 ONE Stop: 04/01/25 05:39 Last Admin: 04/01/25 05:46 Dose: 4 mg Documented By: Ondansetron HCl (Ondansetron Inj 2 Mg/Ml Inj 2 Ml) 4 mg IVP X1 ONE; Protocol Stop: 04/01/25 05:11 Last Admin: 04/01/25 05:45 Dose: 4 mg Documented By: Admin: 04/01/25 05:36 Dose: 4 mg Documented By: RH Pantoprazole Sodium (Pantoprazole Inj 40 Mg Vial) 80 mg IVP X1 ONE Stop: 04/01/25 06:47 Last Admin: 04/01/25 07:10 Dose: 80 mg Documented By: EF See above Consultations Consultation(s) initiated? (list below): No Diagnosis Differential diagnosis abdominal pain: abdominal pain, calculus of kidney, gastroenteritis, pancreatitis and other (gastritis ) Most likely diagnosis given after review of the tests above:: Recurrent epigastric abdominal pain Recurrent nausea and vomiting Admission Indicated Admission indicated?: not indicated Admission Request Was there a request for admission?: No Disposition Plan Disposition Plan: Discharge Discharge Attestation Discharge Attestation: The patient and all family members were given an opportunity to ask questions and understood the discharge instructions. Discharge instructions specifically effects, indications for sooner follow up or return to the emergency department, and the expected course of current diagnosis. Patient condition: Stable Discharge Plan Plan Patient Disposition: HOME (Self Care) Discharge Disposition comment: Stable for discharge home Patient condition on transfer: Stable Prescriptions/Referrals Prescriptions/Med Rec: New magnesium oxide 400 mg magnesium tablet 800 mg PO QDAY 5 Days Qty: 10 0RF potassium chloride 20 mEq/15 mL liquid 40 meq PO QDAY 3 Days Qty: 90 0RF famotidine [Pepcid] 20 mg tablet 20 mg PO BID 7 Days Qty: 14 0RF pantoprazole [Protonix] 20 mg tablet,delayed release (DR/EC) 20 mg PO QDAY 10 Days Qty: 10 0RF alum-mag hydroxide-simeth [Maalox Advanced] 200-200-20 mg/5 mL suspension 10 ml PO QID PRN (Reason: GERD) Qty: 3000 0RF Rx Instructions: administer between meals and at bedtime sucralfate 1 gram tablet 1 g PO BID 10 Days Qty: 20 0RF ondansetron 4 mg tablet,disintegrating 4 mg PO Q6H 4 Days Qty: 16 0RF hydrocodone-acetaminophen 5-325 mg tablet 1 tab PO Q6H MDD 4 tabs per day PRN (Reason: pain) 4 Days Qty: 14 0RF No Action insulin glargine [Lantus U-100 Insulin] 100 unit/mL solution 15 unit SCi BID pantoprazole [Protonix] 40 mg tablet,delayed release (DR/EC) 40 mg PO QDAY Qty: 14 0RF metoclopramide HCl [Reglan] 10 mg tablet 10 mg PO Q6H PRN (Reason: nausea and vomiting) Qty: 14 0RF acetaminophen-codeine 300-30 mg tablet 2 tab PO TID MDD 6 PRN (Reason: pain) Qty: 20 0RF metoclopramide HCl [Reglan] 10 mg tablet 10 mg PO Q6H PRN (Reason: nausea and vomiting) Qty: 30 0RF metoclopramide HCl [Reglan] 10 mg tablet 10 mg PO Q8H Qty: 30 0RF diphenhydramine HCl [Benadryl] 25 mg capsule 25 mg PO TID Qty: 30 0RF capsaicin 0.1 % cream 1 applic topical TID Qty: 60 0RF Rx Instructions: do not wash area for at least 30 min after application metformin 1,000 mg tablet extended release 24 hr 1,000 mg PO BID Qty: 60 0RF ([facility]) blood-glucose meter Kit See Rx Instructions .Route Qty: 1 0RF Rx Instructions: As directed (DME) pen needle, diabetic [Comfort EZ Pen [place]] 31 gauge x 5/16 needle See Rx Instructions .Route Qty: 100 0RF Rx Instructions: As directed ([facility]) lancet-gluc test strip-needles Combo Pack See Rx Instructions .Route Qty: 300 0RF Rx Instructions: As directed atorvastatin 80 mg tablet 80 mg PO QDAY Patient Comments: TAKE 1 TABLET BY MOUTH EVERY DAY cetirizine 10 mg tablet 10 mg PO QDAY Patient Comments: TAKE 1 TABLET BY MOUTH EVERY DAY FOR 90 DAYS triamcinolone acetonide 0.1 % cream 1 applic TOPICAL BID Patient Comments: 1 APPLICATION EXTERNALLY TWICE A DAY 30 DAYS amlodipine 10 mg tablet 10 mg PO QDAY Patient Comments: TAKE 1 TABLET BY MOUTH EVERY DAY lisinopril-hydrochlorothiazide 20-25 mg tablet 1 tab PO QDAY Patient Comments: TAKE 1 TABLET BY MOUTH EVERY DAY FOR 90 DAYS (DME) insulin syringe-needle U-100 [BD Insulin Syringe Ultra-Fine] 0.5 mL 30 gauge x 1/2 syringe See Rx Instructions .Route Qty: 100 2RF Rx Instructions: once a day Referrals: Leslie Juares PA-C [Primary Care Provider] - In 1 week Samantha Zendejas MD [Physician] - In 1 week Problem List Clinical Impression: Recurrent epigastric abdominal pain, Persistent recurrent vomiting Patient/Caregiver Discharge Instructions Discharge Activity: activity as tolerated Diet Instructions: No spicy or greasy foods please. Education Materials: Cyclic Vomiting Syndrome, ED Epigastric Pain (Uncertain Cause) Additional Instructions: It is very important that you call Dr. Zendejas's office and make a follow-up appointment. Dr. Zendejas is our fraud prevention analyst and he is the doctor that put the camera down your mouth and took pictures of your stomach. He is the one that found gastritis and little ulcerations Be sure to mention to the office staff when you call that you were seen by Dr. Zendejas here in the hospital. I do not believe that you have marijuana induced cyclical vomiting syndrome because hot baths and showers do not help, you have stopped smoking marijuana sometime ago and your symptoms are only getting worse and we have a confirmed diagnosis of gastritis with reflux and even ulcerations. These can cause episodes of the symptoms that you are having including pain and vomiting. I prescribed multiple medications for you. They are all waiting for you at the pharmacy except for the [place] which I gave you a paper prescription for. Take all of them as directed. You should be feeling better within the next couple days. If you feel like you are not getting better or if you are worsening in any way please return to the ER right away and we will help you. Otherwise you should follow-up with your primary care doctor within the next several days as well. Print Language: Libyan Stand Alone Forms: Jonna Award Info., Patient Portal Info Letter
[2025-04-01 06:16] LABS: Alanine Aminotransferase 25 U/L (10-49); Albumin, Serum 5.4 gm/dL (3.5-5.0); Albumin/Globulin Ratio 1.6 (1.2-2.2); Alkaline Phosphatase 117 U/L (46-116); Anion Gap 14 (7-16); Aspartate Amino Transferase 32 U/L (0-34); BUN/Creatinine Ratio 14 Ratio (12-20); Bilirubin,Total 1.7 mg/dL (0.3-1.2); Blood Urea Nitrogen 15 mg/dL (9-23); Calcium 10.3 mg/dL (8.3-10.6); Calcium (Corrected) 10.3 mg/dL (8.5-10.1); Carbon Dioxide 27.8 mMol/L (20.0-31.0); Chloride 92 mMol/L (98-107); Creatinine (Component) 1.1 mg/dL (0.6-1.3); Estimated Creatinine Clearance 83.2 mL/min (>60); Globulin 3.4 gm/dL (2.3-3.5); Glucose 237 mg/dL (74-106); Lipase 30 U/L (12-53); Magnesium 1.4 mg/dL (1.6-2.6); Osmolality,Calculated 277 (275-295); Phosphorous 3.6 mg/dL (2.4-5.1); Potassium 3.0 mMol/L (3.4-5.1); Sodium 134 mMol/L (136-145); Total Protein 8.8 gm/dL (5.7-8.2); eGFR > 60 See Note
[2025-04-01 06:23] LABS: Glucose Estimated Average 177 mg/dL (80-131); Hemoglobin A1C 7.8 % Hgb (4.8-6.0)
[2025-04-01 06:34] LABS: Beta Hydroxybutyrate 1.4 mmol/L (<0.6)
[2025-04-01 07:07] LABS: Collection Type, Urine Clean Catch; RBC,Urine 0 /hpf (0-3)
[2025-04-01] MEDS: MG HYD/AL HYD/SIME (Maalox Reg) SUSP 30 ML UDC PO (07:10)
[2025-04-01] MEDS: POTASSIUM CHL 10 mEq IVPB 10 MEQ/100 ML BAG 100 MEQ IV ×2 (07:11→08:19)
[2025-04-01] MEDS: SODIUM CHLORIDE 0.9% 1000 ML 1,000 ML 999 ML IV (07:11)
[2025-04-01] MEDS: FAMOTIDINE INJ 10 MG/ML VIAL 2 ML 20 MG IVP (07:11)
[2025-04-01] MEDS: HYDROmorphone INJ 2 MG/ML VIAL 0.5 MG IVP (07:25)
[2025-04-01 07:30] LABS: HCG Qualitative,Urine Negative
[2025-04-01 07:39] LABS: Bilirubin,Urine Negative (Negative); Blood,Urine Negative (Negative); Clarity,Urine Clear (Clear/Hazy); Culture Indicated,Urine Not Indicated; Glucose, Urine 2+ (Negative); Ketones,Urine 1+ (Negative); Leukocyte Esterase,Urine Negative (Negative); Nitrite,Urine Negative (Negative); PH,Urine 5.5 (5.0-7.0); Protein,Urine Negative (Neg - Trace); Specific Gravity,Urine 1.007 (1.001-1.035); Squamous Epithelial Cell,Urine 3 /hpf (0-5); Urobilinogen,Urine Negative mg/dL (0.0-1.0); WBC,Urine < 1 /hpf (0-5)
[2025-04-01 07:44] LABS: Color,Urine Lt-Yellow (Lt Yel-Yel)
[2025-04-01 07:46] LABS: Amphetamine/Methamp Scrn,U Negative (Negative); Barbiturate Screen,Urine Negative (Negative); Benzodiazepines Screen,Urine Negative (Negative); Benzoylecgonine Screen, Ur Negative (Negative); Fentanyl Screen,Urine Negative (Negative); Opiate Screen,Urine Positive (Negative); THC Screen,Urine Positive (Negative)
[2025-04-01 08:10] VITALS: BP 111/82; PULSE 83; RESP 16; TEMP 37.1; O2SAT 96
[2025-04-01] MEDS: Magnesium Sulfate 2 GM Ivpb 2 GM/50 ML BAG IV (09:27)
[2025-04-01 11:01] VITALS: BP 111/79; PULSE 83; RESP 16; TEMP 36.8; O2SAT 100
== END 2025-04-01 11:19 | disposition home or self-care (01) ==
PROVIDERS: Physician Assistant; Emergency Provider Emergency Medicine; PCP Physician Assistant
DX: R10.13 Epigastric pain (principal); R11.2 Nausea with vomiting, unspecified; R07.9 Chest pain, unspecified; I25.2 Old myocardial infarction
CPT/HCPCS: 36415; 36600; 71046; 76705; 80053; 80307; 81001; 81025; 82010; 82803; 83036; 83605; 83690; 83735; 84100; 85025; 87040; 87077; 87186; 93005; 96361; 96365; 96366; 96375; 99284; J1171; J1885; J2270; J2405; J2470; J3475; J3480; J3490; J7030; J7120; A9270

== ENCOUNTER 2025-08-08 05:18 | Emergency (ER) | payer MEDICAID, SELFPAY ==
--- NOTE | 2025-08-08 | XR_ITS ---
MRI abdomen, without contrast. MRCP Date and time of exam: August 08, 2025, 0756 hours INDICATIONS: Worsening epigastric pain nausea vomiting beginning 3 days ago Technique: Multiple axial and coronal images of the abdomen have been obtained with the Siemens 1.5T MRI scanner. Images obtained included T1 weighted transverse images, T2-weighted transverse images, T2-weighted transverse images fat-suppressed, T2 weighted haste fat suppressed transverse images, T1 weighted images, in and out of phase images, T2-weighted coronal images, breath hold, T2 weighted haze coronal images as well as T2 weighted coronal thick slab images, MRCP. Findings: No intrahepatic biliary tract dilatation or focal liver lesions Absent gallbladder Normal common hepatic common bile duct 2 to 3 mm no stones No pancreatic edema Spleen not enlarged No hydronephrosis No ascites Aorta normal size IMPRESSION: Normal common hepatic common bile duct, no stones Negative for pancreatitis
[2025-08-08 05:19] VITALS: BMI 43.9
[2025-08-08 05:28] VITALS: BP 156/134; BP 212/160; PULSE 129; RESP 20; TEMP 37.3; O2SAT 99
--- NOTE | 2025-08-08 05:31 | EKG_ITS ---
[facility] Test Date: 2025-08-08 Pat Name: AMANDA SANCHEZ Department: Room: - Gender: Female [employer]: : 1990 Requested By: Javier Sheets Order Number: [id number] Reading MD: Javier Sheets Measurements Intervals [place] Rate: 122 P: 26 HI: 139 QRS: -87 QRSD: 82 T: 58 QT: 318 QTc: 453 Interpretive Statements SINUS TACHYCARDIA PATTERN CONSISTENT WITH PULMONARY DISEASE POSSIBLE RIGHT VENTRICULAR CONDUCTION DELAY [RSR (QR) IN V1/V2] LEFT ANTERIOR FASCICULAR BLOCK [QRS AXIS <= -45, QR IN I, RS IN II] Compared to ECG 04/01/2025 05:19:30 Left anterior fascicular block now present Left-axis deviation no longer present Right ventricular hypertrophy no longer present Myocardial infarct finding no longer present /store/[id number].pdf
--- NOTE | 2025-08-08 05:49 | PD.EDRME ---
Rapid Medical Screening Exam E Arrival date/time: 08/08/25 05:18 34F with history of DM, marijuana use, and stomach ulcers presents to ED with 3 days of worsening epigastric pain and N/V. Patient states this feels similar to when she was in DKA. Patient denies recent alcohol use. Chief Complaint: Abdominal Pain Vital signs: Vital Signs Temperature 99.2 F 08/08/25 05:28 Pulse Rate 129 H 08/08/25 05:28 Respiratory Rate 20 08/08/25 05:28 Blood Pressure 212/160 H 08/08/25 05:28 Pulse Oximetry (%) 99 08/08/25 05:28 Oxygen Delivery Method Room Air 08/08/25 05:28 Exam: No focal ab tenderness. Patient is anxious/crying and actively having N/V. Clinical Impression: gastritis vs gastroenteritis vs UTI/pyelo vs DKA vs drug use
[2025-08-08 06:04] LABS: Lactate (Lactic Acid) 1.8 mMol/L (0.4-2.0)
[2025-08-08 06:05] LABS: Base Excess, Venous 7 (-3-3); O2 Saturation, Venous 57 % (96-97); PCO2, Venous 44 mmHg (36-56); PO2, Venous 28 mmHg (15-58); pH, Venous 7.47 (7.33-7.66)
[2025-08-08 06:16] LABS: Basophils # (Auto) 0.1 Thou/mm3 (0.0-0.2); Basophils % (Auto) 1 % (0-2.5); Eosinophils # (Auto) 0.0 Thou/mm3 (0.0-0.5); Eosinophils % (Auto) 0 % (0-10); Hematocrit 40.9 % (36.0-46.0); Hemoglobin 14.1 g/dL (12.0-16.0); Immature Granulocytes Auto 0.05 Thou/mm3 (0.00-0.00); Lymphocytes # (Auto) 3.1 Thou/mm3 (1.0-4.8); Lymphocytes % (Auto) 23 % (10-50); Mean Corpuscular HGB Conc 34.5 g/dl (31.0-37.0); Mean Corpuscular Hemoglobin 30.9 pg (25.0-35.0); Mean Corpuscular Volume 90 fL (80-100); Monocytes # (Auto) 0.7 Thou/mm3 (0.0-0.8); Monocytes % (Auto) 5 % (0-12); Neutrophils # (Auto) 9.4 Thou/mm3 (1.8-7.7); Neutrophils % (Auto) 70 % (37-80); Nucleated Red Blood Cell # 0.00 Thou/mm3 (0.00-0.00); Nucleated Red Blood Cell % 0 /100 WBC (0); Platelet Count 246 Thou/mm3 (140-440); RDW Standard Deviation 41.6 fL (36.4-46.3); Red Blood Count 4.57 Miln/mm3 (4.00-5.20); White Blood Count 13.3 Thou/mm3 (3.6-11.0)
[2025-08-08 06:23] VITALS: BP 187/142; PULSE 114; RESP 20; TEMP 37; O2SAT 99
[2025-08-08] MEDS: RINGERS LACTATED 1000 ML 1,000 ML 999 ML IV (06:25)
[2025-08-08] MEDS: METOCLOPRAMIDE INJ 5 MG/ML VIAL 2 ML 10 MG IVP (06:25)
[2025-08-08 06:29] LABS: Beta Hydroxybutyrate 1.4 mmol/L (<0.6)
[2025-08-08 06:47] LABS: Alanine Aminotransferase 19 U/L (10-49); Albumin, Serum 5.2 gm/dL (3.5-5.0); Albumin/Globulin Ratio 1.5 (1.2-2.2); Alkaline Phosphatase 125 U/L (46-116); Anion Gap 14 (7-16); Aspartate Amino Transferase 31 U/L (0-34); BUN/Creatinine Ratio 16 Ratio (12-20); Bilirubin,Total 2.5 mg/dL (0.3-1.2); Blood Urea Nitrogen 18 mg/dL (9-23); Calcium 9.5 mg/dL (8.3-10.6); Calcium (Corrected) 9.5 mg/dL (8.5-10.1); Carbon Dioxide 29.3 mMol/L (20.0-31.0); Chloride 92 mMol/L (98-107); Creatinine (Component) 1.1 mg/dL (0.6-1.3); Estimated Creatinine Clearance 85.3 mL/min (>60); Globulin 3.4 gm/dL (2.3-3.5); Glucose 301 mg/dL (74-106); Lipase 35 U/L (12-53); Osmolality,Calculated 283 (275-295); Potassium 3.0 mMol/L (3.4-5.1); Procalcitonin 0.05 ng/ml (0.0-0.49); Sodium 135 mMol/L (136-145); Total Protein 8.6 gm/dL (5.7-8.2); eGFR > 60 See Note
[2025-08-08 06:49] LABS: Collection Type, Urine Clean Catch
--- NOTE | 2025-08-08 06:58 | PD.EDABDPN ---
ED Abdominal Pain RME/HPI General Chief Complaint: Abdominal Pain Stated complaint: ABD PAIN AND VOMITING, CHILLS Time seen by provider: 08/08/25 06:28 Arrival date/time: 08/08/25 05:18 Limitations: no limitations RME / HPI RME / HPI narrative: 08/08/25 05:18 34F with history of DM, marijuana use, and stomach ulcers presents to ED with 3 days of worsening epigastric pain and N/V. Patient states this feels similar to when she was in DKA. Patient denies recent alcohol use. DR. ROLLINS MAIN ED EVALUATION 34 year old female with history of hypertension, diabetes, previous admission for DKA, biliary dyskenesia s/p cholecystectomy 07/2024, gastric ulcers presents to the ED for evaluation of abdominal pain. Described as a burning cramping sensation that is located most to the epigastric and right upper quadrant with radiation to her mid back, rating as severe. Accompanied by nausea, nonbloody vomiting. Reportedly had experienced similar pain when she was admitted for DKA and when she had gallstones. Also states that her symptoms got worse when she started eating spicy food recently. Denies fevers, chills, chest pain, cough shortness of breath, change in bowel habits. Exam: No focal ab tenderness. Patient is anxious/crying and actively having N/V. Impression: gastritis vs gastroenteritis vs UTI/pyelo vs DKA vs drug use Related Data Home Medications ?Medication ?Instructions ?Recorded ?Confirmed amlodipine 10 mg tablet 10 mg PO QDAY 07/13/24 08/15/24 atorvastatin 80 mg tablet 80 mg PO QDAY 07/13/24 08/15/24 cetirizine 10 mg tablet 10 mg PO QDAY 07/13/24 07/31/24 lisinopril 20 1 tab PO QDAY 07/13/24 07/31/24 mg-hydrochlorothiazide 25 mg tablet triamcinolone acetonide 0.1 % 1 applic topical BID 07/13/24 08/15/24 topical cream insulin glargine 100 unit/mL 15 unit SCi BID 08/15/24 08/15/24 subcutaneous solution (Lantus U-100 Insulin) Previous Rx's ?Medication ?Instructions ?Recorded blood-glucose meter #1 ea 02/03/23 lancet with blood glucose test #300 ea 02/03/23 strips and pen needles combo pack metformin 1,000 mg tablet,extended 1,000 mg PO BID #60 tabs 02/03/23 release 24hr (osmotic) pen needle, diabetic 31 gauge x #100 ea 02/03/23 5/16 (Comfort EZ Pen [place]) insulin syringe-needle U-100 0.5 #100 ea 07/20/24 mL 30 gauge x 1/2 (BD Insulin Syringe Ultra-Fine) metoclopramide HCl 10 mg tablet 10 mg PO Q6H PRN nausea and 08/17/24 (Reglan) vomiting #14 tabs pantoprazole 40 mg tablet,delayed 40 mg PO QDAY #14 tabs 08/17/24 release (Protonix) acetaminophen 300 mg-codeine 30 mg 2 tab PO TID PRN pain #20 tabs 08/23/24 tablet metoclopramide HCl 10 mg tablet 10 mg PO Q6H PRN nausea and 08/23/24 (Reglan) vomiting #30 tabs capsaicin 0.1 % topical cream 1 applic topical TID #60 grams 03/09/25 diphenhydramine HCl 25 mg capsule 25 mg PO TID #30 caps 03/09/25 (Benadryl) metoclopramide HCl 10 mg tablet 10 mg PO Q8H nausea and vomiting 03/09/25 (Reglan) #30 tabs aluminum-mag hydroxide-simethicone 10 ml PO QID PRN GERD #3,000 mL 04/01/25 200 mg-200 mg-20 mg/5 mL oral susp (Maalox Advanced) Allergies Allergy/AdvReac Type Severity Reaction Status Date / Time No Known Allergies Allergy Verified 08/08/25 05:19 Review of Systems Review of Systems Systems Reviewed: All systems reviewed, normal except as documented Past Medical History Past Medical History CARDIAC: Positive Hypertension GASTROINTESTINAL: Positive Gall Bladder Disease ENDOCRINE: Positive Diabetes Mellitus Type 2 PSYCHO/SOCIAL: Positive Recreational Drug Use, Depression and Anxiety OTHER HISTORY: Positive Hospitalization Surgical History SURGICAL: Positive Abdominal Surgery Social History SMOKING STATUS: Never smoker SECOND HAND EXPOSURE: No SUBSTANCE USE: does not use ED Exam General Limitations: Present no limitations General appearance: Present alert and other (appears uncomfortable and in pain ) Head Head exam: Present atraumatic and normocephalic Eye Eye exam: Present normal appearance, PERRL and EOMI ENT ENT exam: Present normal exam, normal oropharynx and mucous membranes moist Neck Neck exam: Present normal inspection, full ROM and trachea midline Chest Chest inspection: Present normal inspection and symmetric chest wall rise Respiratory Respiratory exam: Present normal lung sounds bilaterally; Absent respiratory distress Cardiovascular Cardiovascular exam: Present regular rate, normal rhythm and normal heart sounds Abdominal Exam Abdominal exam: Present soft, tenderness (Mild epigastric and right upper quadrant tenderness palpation, no rebound or guarding) and normal bowel sounds; Absent distention, guarding, rebound or rigidity Extremities Exam Extremities exam: Present normal inspection and full ROM Back Exam Back exam: Present other (Tenderness to the lower back ) Neurological Exam Neurological exam: Present alert and other (No focal neurodeficits) Psychiatric Psychiatric exam: Present normal affect and normal mood Skin Skin exam: Present warm, dry, intact and normal color Course Quality Measures none Orders Category Date Time Status Blood glucose [Bedside Blood Glucose] NOW Care 08/08/25 05:30 Active EKG (ED ONLY) *Do not use* NOW Care 08/08/25 05:31 Completed Insert IV NOW Care 08/08/25 05:48 Active MRI Screening NOW Care 08/08/25 07:01 Active EKG (ED Only) Stat Exams 08/08/25 05:31 Draft MR MRCP Stat Exams 08/08/25 Completed Beta Hydroxybutyrate Stat Lab 08/08/25 05:58 Completed CBC Stat Lab 08/08/25 05:58 Completed CMP [Comprehensive Metabolic Panel] Stat Lab 08/08/25 05:58 Completed Drug Screen,Urine Stat Lab 08/08/25 09:45 Ordered HCG Qualitative,Urine Stat Lab 08/08/25 06:21 Completed Lactate (Lactic Acid) Stat Lab 08/08/25 05:58 Completed Lipase Stat Lab 08/08/25 05:58 Completed Procalcitonin Stat Lab 08/08/25 05:58 Completed Urinalysis, C/S if Indicated Stat Lab 08/08/25 06:21 Completed VBG [Venous Blood Gas] Stat Lab 08/08/25 05:58 Completed DiphenhydrAMINE INJ [Benadryl Inj] Med 08/08/25 09:46 Discontinued 25 mg IVP X1 ONE HYDROmorphone INJ [Dilaudid Inj] Med 08/08/25 07:15 Discontinued 0.5 mg IVP X1 ONE HYDROmorphone INJ [Dilaudid Inj] Med 08/08/25 07:16 Discontinued 1 mg IVP X1 ONE Haloperidol Lactate [Haldol Inj] Med 08/08/25 09:46 Discontinued 5 mg IM X1 ONE Lidocaine 2% Viscous [Xylocaine 2% Viscous] Med 08/08/25 07:35 Discontinued 15 ml PO X1 ONE Magnesium Sulfate 1 gm Ivpb [Magnesium Sulfate Ivpb] Med 08/08/25 09:45 Active 1 gm in 100 ml IV X1 Metoclopramide Inj [Reglan Inj] Med 08/08/25 05:48 Discontinued 10 mg IVP X1 ONE Ondansetron Inj [Zofran Inj] Med 08/08/25 07:15 Discontinued 4 mg IVP X1 ONE Pantoprazole Inj [Protonix Inj] Med 08/08/25 05:48 Discontinued 40 mg IVP X1 ONE Potassium Chloride [K-Dur] Med 08/08/25 10:29 Discontinued 40 meq PO X1 ONE Ringers Lactated 1000 ml [Lactated Ringers] 1,000 ml Med 08/08/25 05:48 Discontinued IV 999 mls/hr mg Hyd/Al Hyd/Vania Susp [Maalox Susp] Med 08/08/25 07:35 Discontinued 30 ml PO X1 ONE Vital Signs Vital signs: Vital Signs Temperature 99.2 F 08/08/25 05:28 Pulse Rate 129 H 08/08/25 05:28 Respiratory Rate 20 08/08/25 05:28 Blood Pressure 212/160 H 08/08/25 05:28 Pulse Oximetry (%) 99 08/08/25 05:28 Oxygen Delivery Method Room Air 08/08/25 05:28 Pulse ox is 99% on room air which is adequate. Abdominal Pain MDM MDM Narrative MDM Narrative:: Patient is a 34-year-old female with medical history notable for prior hyperbilirubinemia, gastric ulcers, diabetes sent to the emergency for concerns for epigastric pain. Vital signs and exam as listed. Concern for pancreatitis, DKA, urinary tract infection, pyelonephritis, gastritis, choledocholithiasis among others. Ordered labs EKG offered medication for symptom relief. Labs with evidence of leukocytosis 15.3, no left shift, hemoglobin 14.1, blood gas pH 7.47, pCO2 44, potassium 3.0 repleted in the emergency department. Chloride 92, glucose 301 will provide patient with fluids T. bili is 2.5 previously 1.7, alk phos 125, AST and ALT are normal, beta-hydroxybutyrate 1.4 . Patient received a liter of fluids. Per chart review patient has had an MRCP in 2023 concerning for possible choledocholithiasis. Ordered MRCP now. 10:35a MRCP without any acute abnormalities. On reevaluation patient hemodynamically stable not distressed symptoms completely resolved. Tolerating oral intake. Patient will be discharged home with close return precautions follow-up with a primary care doctor. Patient states that she does use marijuana occasionally, I recommended that she obtain from marijuana 6 kit and resulted in significant abdominal pain and discomfort. As well as nausea. The patient agreement. Advised on eating a bland diet, hydrating well, taking medication as prescribed. Patient and her partner at bedside in agreement. Total critical care time: Approximately?36?minutes Due to a high probability of clinically significant, life threatening deterioration, the patient required my highest level of preparedness to intervene emergently and I personally spent this critical care time directly and personally managing the patient. This critical care time included obtaining a history; examining the patient; pulse oximetry; ordering and review of studies; arranging urgent treatment with development of a management plan; evaluation of patient's response to treatment; frequent reassessment; and, discussions with other providers. This critical care time was performed to assess and manage the high probability of imminent, life-threatening deterioration that could result in multi-organ failure. It was exclusive of separately billable procedures and treating other patients and teaching time. Please see MDM section and the rest of the note for further information on patient assessment and treatment. Patient data External records reviewed:: [facility] previous records (I reviewed ED visit on 04/01/2025 ) Clinical information provided by:: patient Social determinants that could affect healthcare access:: none Patient has the following chronic illnesses:: hypertension, diabetes, previous admission for DKA, biliary dyskenesia s/p cholecystectomy 07/2024 How is presenting disease/condition affected by chronic disease/condition?: exacerbated by Evaluation data The following diagnostics were reviewed and interpreted by me:: lab results, radiology exam(s) and EKG tracing(s) Lab and/or radiology exams considered but not ordered:: None Interpretation Summary: Ordering Physician: Whitley Rollins MD Date of Service: 08/08/25 Procedure(s): MR MRCP Accession Number(s): [id number] cc: Koby Shaw MD; Whitley Rollins MD~ MRI abdomen, without contrast. MRCP Date and time of exam: August 08, 2025, 0756 hours INDICATIONS: Worsening epigastric pain nausea vomiting beginning 3 days ago Technique: Multiple axial and coronal images of the abdomen have been obtained with the Siemens 1.5T MRI scanner. Images obtained included T1 weighted transverse images, T2-weighted transverse images, T2-weighted transverse images fat-suppressed, T2 weighted haste fat suppressed transverse images, T1 weighted images, in and out of phase images, T2-weighted coronal images, breath hold, T2 weighted haze coronal images as well as T2 weighted coronal thick slab images, MRCP. Findings: No intrahepatic biliary tract dilatation or focal liver lesions Absent gallbladder Normal common hepatic common bile duct 2 to 3 mm no stones No pancreatic edema Spleen not enlarged No hydronephrosis No ascites Aorta normal size IMPRESSION: Normal common hepatic common bile duct, no stones Negative for pancreatitis Dictated By: Koby Shaw MD Signed By: <Electronically signed by Koby Shaw MD in OV> 08/08/25 0840 Medications / Prescriptions Medications or Prescriptions considered but not ordered:: None Medication administrations:: Medication Administration History Magnesium Sulfate/Dextrose (Magnesium Sulfate Ivpb) 1 gm in 100 mls @ 100 mls/hr IV X1 ONE Stop: 08/08/25 10:44 Last Admin: 08/08/25 10:03 Dose: 100 mls/hr Documented By: BY Discontinued Medications Al Hydrox/Mg Hydrox/Simethicone (Mg Hyd/Al Hyd/Vania (Maalox Reg) Susp 30 Ml Udc) 30 ml PO X1 ONE Stop: 08/08/25 07:36 Last Admin: 08/08/25 07:45 Dose: 30 ml Documented By: BY Diphenhydramine HCl (Diphenhydramine Inj 50 Mg/Ml Vial) 25 mg IVP X1 ONE Stop: 08/08/25 09:47 Last Admin: 08/08/25 10:01 Dose: 25 mg Documented By: BY Haloperidol Lactate (Haloperidol Lact Inj 5 Mg/Ml Vial) 5 mg IM X1 ONE; Protocol Stop: 08/08/25 09:47 Last Admin: 08/08/25 10:02 Dose: 5 mg Documented By: BY Hydromorphone HCl (Hydromorphone Inj 2 Mg/Ml Vial) 0.5 mg IVP X1 ONE Stop: 08/08/25 07:16 Last Admin: 08/08/25 07:20 Dose: 0.5 mg Documented By: BY Hydromorphone HCl (Hydromorphone Inj 2 Mg/Ml Vial) 1 mg IVP X1 ONE Stop: 08/08/25 07:17 Last Admin: 08/08/25 07:35 Dose: Not Given Documented By: BY Non-Admin Reason: Cancelled by Provider Lactated Ringer's (Lactated Ringers) 1,000 mls @ 999 mls/hr IV .Q1H1M ONE Stop: 08/08/25 06:48 Last Admin: 08/08/25 06:25 Dose: 999 mls/hr Documented By: EE Lidocaine HCl (Lidocaine Viscous 2% 15 Ml Udc) 15 ml PO X1 ONE Stop: 08/08/25 07:36 Last Admin: 08/08/25 07:45 Dose: 15 ml Documented By: BY Metoclopramide HCl (Metoclopramide Inj 5 Mg/Ml Vial 2 Ml) 10 mg IVP X1 ONE; Protocol Stop: 08/08/25 05:49 Last Admin: 08/08/25 06:25 Dose: 10 mg Documented By: EE Ondansetron HCl (Ondansetron Inj 2 Mg/Ml Inj 2 Ml) 4 mg IVP X1 ONE; Protocol Stop: 08/08/25 07:16 Last Admin: 08/08/25 07:20 Dose: 4 mg Documented By: BY Pantoprazole Sodium (Pantoprazole Inj 40 Mg Vial) 40 mg IVP X1 ONE Stop: 08/08/25 05:49 Last Admin: 08/08/25 06:25 Dose: 40 mg Documented By: EE Potassium Chloride (Potassium Chloride 20 Meq Tabcr) 40 meq PO X1 ONE Stop: 08/08/25 10:30 See above Consultations Consultation(s) initiated? (list below): No Diagnosis Differential diagnosis abdominal pain: abdominal pain, calculus of kidney, pancreatitis and other (choledocholithiasis) Most likely diagnosis given after review of the tests above:: CMP Admission Indicated Admission indicated?: not indicated Admission Request Was there a request for admission?: No Disposition Plan Disposition Plan: Discharge Discharge Attestation Discharge Attestation: The patient and all family members were given an opportunity to ask questions and understood the discharge instructions. Discharge instructions specifically effects, indications for sooner follow up or return to the emergency department, and the expected course of current diagnosis. Patient condition: Stable Discharge Plan Prescriptions/Referrals Prescriptions/Med Rec: No Action insulin glargine [Lantus U-100 Insulin] 100 unit/mL solution 15 unit SCi BID pantoprazole [Protonix] 40 mg tablet,delayed release (DR/EC) 40 mg PO QDAY Qty: 14 0RF metoclopramide HCl [Reglan] 10 mg tablet 10 mg PO Q6H PRN (Reason: nausea and vomiting) Qty: 14 0RF acetaminophen-codeine 300-30 mg tablet 2 tab PO TID MDD 6 PRN (Reason: pain) Qty: 20 0RF metoclopramide HCl [Reglan] 10 mg tablet 10 mg PO Q6H PRN (Reason: nausea and vomiting) Qty: 30 0RF metoclopramide HCl [Reglan] 10 mg tablet 10 mg PO Q8H Qty: 30 0RF diphenhydramine HCl [Benadryl] 25 mg capsule 25 mg PO TID Qty: 30 0RF capsaicin 0.1 % cream 1 applic topical TID Qty: 60 0RF Rx Instructions: do not wash area for at least 30 min after application alum-mag hydroxide-simeth [Maalox Advanced] 200-200-20 mg/5 mL suspension 10 ml PO QID PRN (Reason: GERD) Qty: 3000 0RF Rx Instructions: administer between meals and at bedtime metformin 1,000 mg tablet extended release 24 hr 1,000 mg PO BID Qty: 60 0RF (DME) blood-glucose meter Kit See Rx Instructions .Route Qty: 1 0RF Rx Instructions: As directed (DME) pen needle, diabetic [Comfort EZ Pen [place]] 31 gauge x 5/16 needle See Rx Instructions .Route Qty: 100 0RF Rx Instructions: As directed (DME) lancet-gluc test strip-needles Combo Pack See Rx Instructions .Route Qty: 300 0RF Rx Instructions: As directed atorvastatin 80 mg tablet 80 mg PO QDAY Patient Comments: TAKE 1 TABLET BY MOUTH EVERY DAY cetirizine 10 mg tablet 10 mg PO QDAY Patient Comments: TAKE 1 TABLET BY MOUTH EVERY DAY FOR 90 DAYS triamcinolone acetonide 0.1 % cream 1 applic TOPICAL BID Patient Comments: 1 APPLICATION EXTERNALLY TWICE A DAY 30 DAYS amlodipine 10 mg tablet 10 mg PO QDAY Patient Comments: TAKE 1 TABLET BY MOUTH EVERY DAY lisinopril-hydrochlorothiazide 20-25 mg tablet 1 tab PO QDAY Patient Comments: TAKE 1 TABLET BY MOUTH EVERY DAY FOR 90 DAYS (DME) insulin syringe-needle U-100 [BD Insulin Syringe Ultra-Fine] 0.5 mL 30 gauge x 1/2 syringe See Rx Instructions .Route Qty: 100 2RF Rx Instructions: once a day Referrals: Jaswinder Steiner MD [Primary Care Provider, Family Practice] - In 1 week Problem List Clinical Impression: Nausea and vomiting, Abdominal pain, Hyperbilirubinemia, Acute hypokalemia Patient/Caregiver Discharge Instructions Education Materials: Total Bilirubin (Blood), ED Hypokalemia Additional Instructions: Is important that you follow-up with your primary care doctor within the next 1 to 2 days for further workup and evaluation. I am reassured by the results of your MRCP that did not show any evidence of choledocholithiasis or other abnormalities. Your labs were notable for slightly low potassium that we have given you repletion for. Your blood cells were mildly elevated. Glad that your symptoms are improved I highly recommend that you abstain from marijuana as often times this can be a cause of abdominal pain and significant nausea and vomiting. Marijuana and THC products in her system for approximately 30 days. Please eat a bland diet. Avoid spicy foods, citrus, soda or any other foods that upset your stomach. Return immediately for worsening symptoms or any symptoms of concern Print Language: Portuguese
[2025-08-08] MEDS: HYDROmorphone INJ 2 MG/ML VIAL 0.5 MG IVP (07:20)
[2025-08-08] MEDS: ONDANSETRON INJ 2 MG/ML INJ 2 ML 4 MG IVP (07:20)
[2025-08-08 07:32] VITALS: BP 208/137; PULSE 98; RESP 16; TEMP 37.1; O2SAT 100
[2025-08-08] MEDS: LIDOCAINE VISCOUS 2% 15 ML UDC PO (07:45)
[2025-08-08] MEDS: MG HYD/AL HYD/SIME (Maalox Reg) SUSP 30 ML UDC PO (07:45)
[2025-08-08 08:25] LABS: HCG Qualitative,Urine Negative
[2025-08-08 08:27] LABS: Bacteria,Urine Rare; Bilirubin,Urine Negative (Negative); Blood,Urine Negative (Negative); Color,Urine Lt-Yellow (Lt Yel-Yel); Culture Indicated,Urine Not Indicated; Glucose, Urine 4+ (Negative); Ketones,Urine 1+ (Negative); Leukocyte Esterase,Urine Positive (Negative); Nitrite,Urine Negative (Negative); PH,Urine 6.0 (5.0-7.0); Protein,Urine Trace (Neg - Trace); RBC,Urine 2 /hpf (0-3); Specific Gravity,Urine 1.010 (1.001-1.035); Squamous Epithelial Cell,Urine 13 /hpf (0-5); Urobilinogen,Urine Negative mg/dL (0.0-1.0); WBC,Urine 4 /hpf (0-5)
[2025-08-08 08:33] LABS: Clarity,Urine Hazy (Clear/Hazy)
[2025-08-08 08:47] VITALS: BP 197/141; PULSE 100; RESP 18; O2SAT 99
[2025-08-08] MEDS: HALOPERIDOL LACT INJ 5 MG/ML VIAL IM (10:02)
[2025-08-08 10:56] VITALS: BP 179/120; PULSE 102; RESP 16; TEMP 37.1; O2SAT 99
[2025-08-08 11:24] LABS: Amphetamine/Methamp Scrn,U Negative (Negative); Barbiturate Screen,Urine Negative (Negative); Benzodiazepines Screen,Urine Negative (Negative); Benzoylecgonine Screen, Ur Negative (Negative); Fentanyl Screen,Urine Negative (Negative); Opiate Screen,Urine Negative (Negative); THC Screen,Urine Positive (Negative)
== END 2025-08-08 11:02 | disposition home or self-care (01) ==
PROVIDERS: Physician Assistant; Emergency Provider Emergency Medicine; PCP Family Medicine
DX: E87.6 Hypokalemia (principal); R17 Unspecified jaundice; R11.2 Nausea with vomiting, unspecified; R10.13 Epigastric pain; R00.0 Tachycardia, unspecified
CPT/HCPCS: 36415; 74181; 80053; 80307; 81001; 81025; 82010; 82803; 83605; 83690; 84145; 85025; 93005; 96372; 96374; 96375; 99284; J1171; J1200; J1630; J2405; J2470; J2765; J3475; J3490; J7120; A9270